=== PATIENT | female | born 1975 | race African-American/Black ===

== ENCOUNTER 2021-12-11 09:40 | Emergency (ER) | payer OTHER ==
[2021-12-11 10:41] LABS: Urine Blood Trace-lysed (Negative); Urine Glucose Negative (Negative); Urine Protein Negative (Negative); Urine Specific Gravity 1.015 (1.005-1.030)
[2021-12-11] MEDS ORDERED: ACETAMINOPHEN 500 MG TAB ONE (11:03)
[2021-12-11] MEDS ORDERED: ONDANSETRON 4 MG (ODT) TAB ONE (11:03)
[2021-12-11] MEDS ORDERED: LIDOCAINE 4% PATCH ONE (11:04)
[2021-12-11 11:40] LABS: Urine Specific Gravity/Preg 1.015 (1.005-1.030)
--- NOTE | 2021-12-11 12:10 | RAD REPORT ---
EXAM DESCRIPTION: CT - Abdomen Pelvis Wo Contrast - 12/11/2021 11:53 am CLINICAL HISTORY: Abdominal pain. Abdominal pain, acute, nonlocalized COMPARISON: CT-STONE PROTOCOL dated 09/27/2012 TECHNIQUE: CT imaging of the abdomen and pelvis was performed without contrast. Solid organ, bowel a nd vascular assessment is limited due to lack of IV and oral contrast. All CT scans are performed using dose optimization technique as appropriate and may include automated exposure control or mA/KV adjustment according to patient size. FINDINGS: The lower lung stack are clear. The liver, spleen, pancreas, adrenal glands and kidneys are within normal limits for a limited non-co ntrast examination.Moderate fat containing umbilical hernia. No bowel obstruction, free air, free fluid or abscess. The appendix is normal. The osseous structures are within normal limits.Uterus is enlarged. IMPRESSION: No acute intra-abdominal or pelvic findings. Moderate fat containing umbilical hernia. Uterus is enlarged. A limited non-contrast examination was performed as detailed.
[2021-12-11 12:44] LABS: Absolute Lymphocytes (CBC) 1.6 K/uL (0.7-4.9); Hematocrit 34.9 % (36.0-45.0); MPV 7.5 fL (7.6-11.3); RBC Red Blood Cell Count 4.53 M/uL (3.86-4.86)
[2021-12-11 13:08] LABS: Albumin 3.4 g/dL (3.4-5.0); Bilirubin Total 0.3 mg/dL (0.2-1.0); Potassium 3.4 mmol/L (3.5-5.1); Protein, Total 7.2 g/dL (6.4-8.2)
--- NOTE | 2021-12-11 13:33 | EDPHYS ---
Physician Documentation [facility] Name: Paulette Farrell Age: 46 yrs Sex: Female : 1975 Arrival Date: 12/11/2021 Time: 09:42 Bed 12 Private MD: ED Physician Jeffrey Gomez HPI: 12/11 10:09 This 46 yrs old Black Female presents to ER via Ambulatory with complaints of Back cp Pain, Nausea. 10:10 The patient presents with pain that is acute, with no known mechanism of injury. The cp symptoms are located in the low back. 10:10 Onset: The symptoms/episode began/occurred last night. cp 10:10 Associated signs and symptoms: Pertinent positives: abdominal pain, Pertinent cp negatives: constipation, dysuria, fever, incontinence, numbness, weakness, vaginal bleeding. The problem was sustained history of uterine fibroid. 10:10 Severity of symptoms: in the emergency department the symptoms are unchanged, despite cp home interventions. Historical: - Allergies: 09:59 Iodine; iw - PMHx: 09:59 Anemia; iw - PSHx: 09:59 breast reduction; tubal ligation; iw ROS: 10:15 Constitutional: Negative for body aches, chills, fever, poor PO intake. cp 10:15 Respiratory: Negative for cough, shortness of breath, wheezing. cp 10:15 Abdomen/GI: Positive for abdominal pain, nausea, Negative for vomiting, diarrhea, constipation, black/tarry stool, rectal bleeding. 10:15 : Positive for pain with urination, Negative for hematuria, flank pain, vaginal bleeding, vaginal discharge. 10:15 Skin: Negative for rash. 10:15 Neuro: Negative for altered mental status, headache, numbness, tingling, weakness. 10:15 Eyes: Negative for injury, pain, redness, and discharge. cp 10:15 ENT: Negative for drainage from ear(s), ear pain, sore throat, difficulty swallowing, cp difficulty handling secretions. 10:15 Cardiovascular: Negative for chest pain, edema, palpitations. 10:15 Back: Positive for pain at rest, pain with movement. 10:15 All other systems are negative. Exam: 10:25 Constitutional: The patient appears in no acute distress, alert, awake, cp non-diaphoretic, non-toxic, well developed, well nourished, overweight 10:25 Head/Face: Normocephalic, atraumatic. cp 10:25 Eyes: Periorbital structures: appear normal, Conjunctiva: normal, no exudate, no injection, Sclera: no appreciated abnormality, Lids and lashes: appear normal, bilaterally. 10:25 ENT: External ear(s): are unremarkable, Nose: is normal, Mouth: Lips: moist, Oral mucosa: moist, Posterior pharynx: Airway: no evidence of obstruction, patent. 10:25 Chest/axilla: Inspection: normal. 10:25 Cardiovascular: Rate: normal, Rhythm: regular, Edema: is not appreciated, JVD: is not appreciated. 10:25 Respiratory: the patient does not display signs of respiratory distress, Respirations: normal, no use of accessory muscles, no retractions, labored breathing, is not present, Breath sounds: are clear throughout, no decreased breath sounds, no stridor, no wheezing. 10:25 Abdomen/GI: Inspection: abdomen appears normal, Bowel sounds: active, all quadrants, Palpation: soft, in all quadrants, mild abdominal tenderness, in the right lower quadrant and left lower quadrant, rebound tenderness, is not appreciated, voluntary guarding, is not appreciated, involuntary guarding, is not appreciated. 10:25 Back: pain, that is mild, of the low back area, ROM is painful, with all movement, CVA tenderness, is absent. 10:25 Neuro: Orientation: to person, place \T\ time. Mentation: is normal, Motor: moves all fours, strength is normal, Sensation: is normal, Gait: is steady, at a normal pace, without difficulty. Vital Signs: 09:57 BP 148 / 75; Pulse 86; Resp 16; Temp 98.1; Pulse Ox 100% on R/A; iw MDM: 10:53 Patient medically screened. cp 13:30 Data reviewed: vital signs, nurses notes, lab test result(s), radiologic studies, CT cp scan. 12/11 10:42 Order name: Urine Dipstick-Ancillary; Complete Time: 10:53 EDMS 12/11 10:53 Interpretation: Normal except: UBLD Trace-lysed. cp 12/11 10:42 Order name: Urine --Ancillary (enter results); Complete Time: 12:41 bd 06/06 11:39 Order name: CBC with Diff; Complete Time: 13:18 cp 12/11 13:18 Interpretation: Normal except: HGB 11.3; HCT 34.9; MCV 77.0; MCH 24.9; RDW 18.1; MPV cp 7.5; SMITA% 74.8. 12/11 11:39 Order name: CMP; Complete Time: 13:18 cp 12/11 13:18 Interpretation: Normal except: K 3.4. cp 12/11 11:39 Order name: Lipase; Complete Time: 13:18 cp 12/11 10:09 Order name: Urine Dipstick-Ancillary (obtain specimen); Complete Time: 10:44 cp 12/11 10:09 Order name: Urine Test (obtain specimen); Complete Time: 10:44 cp 12/11 11:39 Order name: IV Saline Lock; Complete Time: 12:37 cp 12/11 11:39 Order name: Labs collected and sent; Complete Time: 12:37 cp 12/11 11:41 Order name: CT Abd/Pelvis - Without Contrast; Complete Time: 12:41 cp Administered Medications: 11:04 Drug: Tylenol 1000 mg Route: PO; ww 11:30 Follow up: Response: No adverse reaction iw 11:04 Drug: Zofran (Ondansetron) 4 mg Route: PO; ww 11:20 Follow up: Response: No adverse reaction iw 11:04 Drug: Lidoderm Patch 5 % (700 mg/patch) 1 patches Route: Topical; Site: affected area; ww Disposition: 12/12 10:08 Co-signature as Attending Physician, Jeffrey Gomez MD. rn Disposition Summary: 12/11/21 13:32 Discharge Ordered Location: Home cp Problem: new cp Symptoms: have improved cp Condition: Stable cp Diagnosis - Nausea cp - Abdominal pain, unspecified cp - Low back pain cp Followup: cp - With: Private Physician - When: 2 - 3 days - Reason: Recheck today's complaints Discharge Instructions: - Discharge Summary Sheet cp - Abdominal Pain, Adult cp - Uterine Fibroids cp - Nausea, Adult cp Forms: - Medication Reconciliation Form cp - Thank You Letter cp - Antibiotic Education cp - Prescription Opioid Use cp Prescriptions: - Zofran 4 mg Oral Tablet - take 1 tablet by ORAL route every 12 hours As needed; 20 tablet; Refills: 0, cp Product Selection Permitted - Lidoderm 5 % Topical adhesive patch,medicated - apply 1 patch by TOPICAL route once daily; 20 patch; Refills: 0, Product cp Selection Permitted - dicyclomine 20 mg Oral Tablet - take 1 tablet by ORAL route 4 times per day; 20 tablet; Refills: 0, Product cp Selection Permitted - Cyclobenzaprine 10 mg Oral Tablet - take 1 tablet by ORAL route every 8 hours As needed; 20 tablet; Refills: 0, cp Product Selection Permitted Signatures: Dispatcher [employer] Chloé Reich RN RN iw Nieto, Roman, MD MD rn Page, Corey, PA PA cp Wood, Whitney, RN RN ww Corrections: (The following items were deleted from the chart) 12/11 10:00 09:59 Allergies: Iodine; [facility] 10:11 10:10 The patient presents with pain that is chronic, with no known mechanism of cp injury, cp
--- NOTE | 2021-12-11 13:33 | ER ---
Nurse's Notes [facility] Name: Paulette Farrell Age: 46 yrs Sex: Female : 1975 Arrival Date: 12/11/2021 Time: 09:42 Bed 12 Private MD: Diagnosis: Nausea;Abdominal pain, unspecified;Low back pain Presentation: 12/11 09:57 Chief complaint: Patient states: has linnea having abd pain and leg pain and back pain all iw night , + nausea, no fever , has uterine fibroid that she think sis making her sick , also had urinary frequency last night. Coronavirus screen: At this time, the client does not indicate any symptoms associated with coronavirus-19. Ebola Screen: Patient negative for fever greater than or equal to 101.5 degrees Fahrenheit, and additional compatible Ebola Virus Disease symptoms Patient denies exposure to infectious person. Patient denies travel to an Ebola-affected area in the 21 days before illness onset. No symptoms or risks identified at this time. Initial Sepsis Screen: Does the patient meet any 2 criteria? No. Patient's initial sepsis screen is negative. Does the patient have a suspected source of infection? No. Patient's initial sepsis screen is negative. Risk Assessment: Do you want to hurt yourself or someone else? Patient reports no desire to harm self or others. Onset of symptoms was December 11, 2021. 09:57 Method Of Arrival: Ambulatory iw 09:57 Acuity: JL 3 iw Historical: - Allergies: 09:59 Iodine; iw - PMHx: 09:59 Anemia; iw - PSHx: 09:59 breast reduction; tubal ligation; iw Vital Signs: 09:57 BP 148 / 75; Pulse 86; Resp 16; Temp 98.1; Pulse Ox 100% on R/A; iw ED Course: 09:42 Patient arrived in ED. am2 09:59 Triage completed. iw 10:04 Jaron Gillespie PA is PHCP. cp 10:04 Jeffrey Gomez MD is Attending Physician. cp 10:43 Chloé Montes, BO is Primary Nurse. iw 11:54 CT Abd/Pelvis - Without Contrast In Process Unspecified. EDMS 12:36 Inserted saline lock: 20 gauge in left antecubital area, using aseptic technique. Blood mb7 collected. 12:37 CBC with Diff Sent. mb7 12:37 CMP Sent. mb7 12:37 Lipase Sent. mb7 12:38 Patient has correct armband on for positive identification. Bed in low position. Call mb7 light in reach. Side rails up X 1. Door closed. Noise minimized. Warm blanket given. Administered Medications: 11:04 Drug: Tylenol 1000 mg Route: PO; ww 11:30 Follow up: Response: No adverse reaction iw 11:04 Drug: Zofran (Ondansetron) 4 mg Route: PO; ww 11:20 Follow up: Response: No adverse reaction iw 11: Drug: Lidoderm Patch 5 % (700 mg/patch) 1 patches Route: Topical; Site: affected area; ww Outcome: 13:32 Discharge ordered by . ines 14:27 Patient left the ED. iw Signatures: Dispatcher [employer] Chloé Reich, RN RN iw Jaron Gillespie PA PA cp Moreno, Amanda am2 Breneman, Mary mb7 Krala Cesar RN RN ww Corrections: (The following items were deleted from the chart) 10:00 09:57 Pulse 86bpm; Resp 16bpm; Pulse Ox 100% RA; Temp 98.1F; iw iw 10:00 09:59 Allergies: Iodine; iw iw
[2021-12-11 14:46] VITALS: BP 148/75; TEMP 98.1; O2SAT 100
== END 2021-12-11 14:27 | disposition home or self-care (01) ==
LOC: ER 09:40
DX: M54.50 Low back pain, unspecified (principal); R11.0 Nausea; R10.9 Unspecified abdominal pain; Z91.048 Other nonmedicinal substance allergy status
CPT/HCPCS: 85025; 36415; 81025; 81003; 83690; 80053; 74176; 99284; J2001

== ENCOUNTER 2023-03-25 09:49 | Emergency (ER) | payer OTHER ==
--- OUTSIDE RECORDS SUMMARY | 2023-03-25 09:57 | XMS REPORT | Continuity of Care Document ---
:1975 Author Organization [facility] t Address [address] [place] [address] Care Team Providers Name Role Phone PCP, PATIENT DOES NOT HAVE A Primary Care Physician Unavaila ble RADIOLOGY Attending Clinician Unavailable Doctor Unassigned, [place] Attending Clinician Unavailable FLORA GOMEZ Attending Clinician Unavailable FLORA GOMEZ Attending Clinician Unavailable TIBURCIO LUCIA Attending Clinician Unavailable Tiburcio Lucia MD Attending Clinician NOLA GARCIA Attending Clinician Unavailable Nola Garcia DO Attending Clinician Tyrell Coe RN Attending Clinician Unavailable REJI GRANGER Attending Clinician Unavailable TORSTEN SY Attending Clinician Unavailable TIBURCIO LUCIA Admitting Clinician Unavailable Payers Payer Name Policy Type Policy Number Effective Date Expiration Date S ource Problems Condition Condition Condition Status Onset Resolution Last Treating Co mments Source Name Details Category Date Date Treatment Clinician Date Morbid Morbid Disease Active 2019-07 Univers obesity obesity 1- [place] index 00 Me dical of of Branch 40.0-49.9 40.0-49.9 Morbid Morbid Disease Active 2019-07 Univers obesity obesity 1-09 [place] of with body [place] mass index 00 Me dical of of Branch 40.0-49.9 40.0-49.9 Headache Headache Disease Active 2019-07 Unive rs 1-09 ity of 00:00: [place] [facility] Left-sided Left-sided Disease Active 2019-07 U nivers weakness weakness 1-08 ity of 00:00: [place] [facility] Tobacco Tobacco Disease Active Univers use use 8-14 ity of disorder disorder 00:00: Medical Branch Generalize Generalize Disease Active U nivers d anxiety d anxiety 8-14 ity of disorder disorder 00:00: Medical Branch Depression Depression Disease Active U nivers 8-14 ity of 00:00: Medical Branch History of History of Disease Active U nivers kidney kidney 814 ity of stones stones 00:00: Medical Branch Elevated Elevated Disease Active Unive rs blood blood 814 ity of pressure pressure 00:00: [place] reading reading 00 Medical without without Branch diagnosis diagnosis of of hypertensi hypertensi on on Anemia Anemia Disease Active Overview: Univer s 8-13 Formattin ity of 00:00: g of this note Medical might be Branch different from the original. ICD10 Diagnosis Term Medicare Compliance Auditor Utility Obesity Obesity Disease Active Overview: Univ ers 8-13 Formattin ity of 00:00: g of this note Medical might be Branch different from the original. ICD10 Diagnosis Term Medicare Compliance Auditor Utility Backache Backache Disease Active Overview: Un ben 8-12 Formattin ity of 00:00: g of this note Medical might be Branch different from the original. ICD10 Diagnosis Term Medicare Compliance Auditor Utility Allergies, Adverse Reactions, Alerts Allergy Allergy Status Severity Reaction(s) Onset Inactive Treating Comm ents Source Name Type Date Date Clinician Iodine Propensi Active Strong - ty to 4-25 Oral adverse 00:00: reaction 00 to drug Iodine Propensi Active ty to 8-06 adverse 00:00: reaction 00 to drug Iodine Propensi Active Anaphylaxis Uni vers And ty to 8-12 ity of Iodide adverse 00:00: [place] Containi reaction 00 Medica l ng s Branch Products Iodine Propensi Active Anaphylaxis Uni vers ty to 8-12 ity of adverse 00:00: [place] reaction 00 Medical s Branch Iodine Propensi Active Anaphylaxis Uni vers And ty to 12 ity of Iodide adverse 00:00: [place] Containi reaction 00 Medica l ng s Branch Products IODINE DRUG Active Anaphylaxis Unive rs INGREDI 8-12 ity of 00:00: [place] 00 Medical Branch IODINE Drug Active Anaphylaxis Unive rs AND Class 8-12 ity of IODIDE 00:00: [place] CONTAINI 00 Medical Branch PRODUCTS Social History Social Habit Start Date Stop Date Quantity Comments Source History of Cigarette Smoker Universi ty of tobacco use [place] [facility] History SDDE University o f Alcohol Frequency [facility] edical Branch History [facility] University o f Alcohol Std [place] [facility] Drinks Branch History [facility] o f Alcohol Binge [facility] al Branch Exposure to 2022-06-16 2022-06-26 Not sure University of SARS-CoV-2 00:00:00 23:22:00 [facility] (event) [place] Alcohol intake 2022-01-28 2022-01-28 Current drinker of Un iversity of 00:00:00 00:00:00 alcohol (finding) [facility] Cigarettes smoked 2014-02-16 2014-02-16 Univers ity of current (pack per [facility] - Reported Branch Cigarette 2014-02-16 2014-02-16 University of pack-years 00:00:00 00:00:00 [facility] Tobacco use and 2014-02-16 2014-02-16 Smokeless tobacco Un iversity of exposure 00:00:00 00:00:00 non-user [facility] Alcohol Comment 2014-02-16 2014-02-16 occasionally Univers ity of 00:00:00 00:00:00 [facility] Sex [birth year] Universit y of 00:00:00 00:00:00 [facility] Smoking Status Start Date Stop Date Source Smokes tobacco daily 2014-02-16 00:00:00 Univers ity of [facility] Medications Ordered Filled Start Stop Current Ordering Indication Dosage Frequency Signature Comments Components Source Medication Medication Date Date Medication? Clinician (SIG) Name Name ketorolac 2021-07 No 30mg 30 mg, Unive rs (TORADOL) 08-28 12- Slow IV ity of injection 07:45: 07:03 Push, ONCE [place] 30 mg 00 :00 NOW, 1 Medical dose, On Branch 06/27/22 at 0145, SUSI naproxen 2021-07- No [id number] 500mg Take 1 Univers 500 mg 08-28 100 tablet by ity of tablet 00:00: 05:59 mouth in [place] 00 :00 the Medical morning Branch and 1 tablet in the evening. Take with meals. Do all this for 10 days. cefdinir 2021-07- No [id number] 300mg Take 1 Univers 300 mg 08-28 100 capsule by ity of capsule 00:00: 05:59 mouth in [place] 00 :00 the Medical morning Branch and 1 capsule in the evening. Do all this for 7 days. acetaminoph 2021-07- No [id number] 1{tbl} Take 1 U nivers en-codeine 08-28 tablet by ity of 300-30 mg 00:00: 05:59 mouth [place] tablet 00 :00 every 6 Medical (six) Branch hours as needed for Pain (scale 7-10) for up to 7 days. Indication s: acute pain naproxen 2021-07 No [id number] 500mg Take 1 Univers 500 mg 08-28 100 tablet by ity of tablet 00:00: 00:00 mouth in [place] 00 :00 the [facility] Branch and 1 tablet in the evening. Take with meals. Do all this for 10 days. TAKE 1 2021-0 No TABLET BY 9-13 MOUTH FOUR 00:00: TIMES DAILY 00 TAKE 1 2021-0 No 20 TABLET BY 8-12 MOUTH FOUR 00:00: TIMES DAILY 00 TAKE 1 2021-0 No 20 TABLET BY 8-12 MOUTH FOUR 00:00: TIMES DAILY 00 TAKE 1 2021-0 No 20 TABLET BY 8-12 MOUTH FOUR 00:00: TIMES DAILY 00 &lt 2022-0 No 8-10 00:00: 00 &lt 2022-0 No 8-10 00:00: 00 &lt 2022-0 No 8-10 00:00: 00 Vitamin D2 2021-0 No 1(50,00 1,250 mcg 02-02 0 unit) (50,000 00:00: unit) 00 capsule TAKE 1 2021-0 No 200 CAPSULE BY 7-29 MOUTH WITH 00:00: FOOD THE 00 NIGHT BEFORE PROCEDURE TAKE 1 2022-0 No 10 TABLET BY 7-29 MOUTH THE 00:00: NIGHT 00 BEFORE PROCEDURE AND 1 TABLET 1 HOUR PRIOR TO PROCEDURE Vitamin D2 2022-0 No 1(50,00 1,250 mcg 7-29 0 unit) (50,000 00:00: unit) 00 capsule TAKE 1 2022-0 No 200 CAPSULE BY 7-29 MOUTH WITH 00:00: FOOD THE 00 NIGHT BEFORE PROCEDURE TAKE 1 2022-0 No 10 TABLET BY 7-29 MOUTH THE 00:00: NIGHT 00 BEFORE PROCEDURE AND 1 TABLET 1 HOUR PRIOR TO PROCEDURE Vitamin D2 2022-0 No 1(50,00 1,250 mcg 7-29 0 unit) (50,000 00:00: unit) 00 capsule TAKE 1 2022-0 No 200 CAPSULE BY 7-29 MOUTH WITH 00:00: FOOD THE 00 NIGHT BEFORE PROCEDURE TAKE 1 2022-0 No 10 TABLET BY 7-29 MOUTH THE 00:00: NIGHT 00 BEFORE PROCEDURE AND 1 TABLET 1 HOUR PRIOR TO PROCEDURE &lt 2022-0 No 7-28 00:00: 00 &lt 2022-0 No 7-28 00:00: 00 &lt 2022-0 No 7-28 00:00: 00 nifedipine 2022-0 No 1mg ER 30 mg 7-26 tablet,exte 00:00: nded 00 release 24 hr &lt 2022-0 No 7-26 00:00: 00 TAKE 1 2022-0 No 10 TABLET BY 7-26 MOUTH THE 00:00: NIGHT 00 BEFORE PROCEDURE AND 1 TABLET 1 HOUR PRIOR TO PROCEDURE &lt 2022-0 No 7-26 00:00: 00 nifedipine 2022-0 No 1mg ER 30 mg 7-26 tablet,exte 00:00: nded 00 release 24 hr &lt 2022-0 No 7-26 00:00: 00 TAKE 1 2022-0 No 10 TABLET BY 7-26 MOUTH THE 00:00: NIGHT 00 BEFORE PROCEDURE AND 1 TABLET 1 HOUR PRIOR TO PROCEDURE &lt 2022-0 No 7-26 00:00: 00 nifedipine 2022-0 No 1mg ER 30 mg 7-26 tablet,exte 00:00: nded 00 release 24 hr &lt 2022-0 No 7-26 00:00: 00 TAKE 1 2022-0 No 10 TABLET BY 7-26 MOUTH THE 00:00: NIGHT 00 BEFORE PROCEDURE AND 1 TABLET 1 HOUR PRIOR TO PROCEDURE &lt 2021-0 No 01-30 00:00: 00 nifedipine 2021-0 No 1mg ER 30 mg 01-30 tablet,exte 00:00: nded 00 release 24 hr &lt 2021-0 No 01-30 00:00: 00 TAKE 1 2021-0 No 10 TABLET BY 01-30 MOUTH THE 00:00: NIGHT 00 BEFORE PROCEDURE AND 1 TABLET 1 HOUR PRIOR TO PROCEDURE &lt 2021-0 No 01-30 00:00: 00 ondansetron 2021- No 4mg 4 mg, Slow Univers (ZOFRAN 01-28-24 IV Push, ity of (PF)) 22:15: 22:12 ONCE, 1 [place] injection 4 00 :00 dose, On Medi armando mg Sun Branch 01/28/22 at 1715, SUSI NaCl 0.9% 2021- No 1000mL at 999 Uni vers (NS) bolus 01-28- mL/hr, ity of infusion 21:30: 23:00 1,000 mL, [place] 1,000 mL 00 :00 IV Medical Infusion, Branch ONCE, 1 dose, On 01/28/22 at 1630, SUSI ibuprofen 2021- No 200mg Take 200 Un ben (ADVIL) 200 01-28-24 mg by ity of mg tablet 16:58: 00:00 mouth [place] 46 :00 every 6 Medical (six) Branch hours as needed. Takes 3 pills prn pain albuterol Yes [id number] 2{puff} Inhale 2 Univers 90 7-24 Puffs ity of mcg/actuati 00:00: every 4 [place] on inhaler 00 (four) Medical hours as Branch needed for Wheezing or Shortness of Breath. albuterol Yes [id number] 2{puff} Inhale 2 Univers 90 7-24 Puffs ity of mcg/actuati 00:00: every 4 [place] on inhaler 00 (four) Medical hours as Branch needed for Wheezing or Shortness of Breath. albuterol Yes [id number] 2{puff} Inhale 2 Univers 90 7-24 Puffs ity of mcg/actuati 00:00: every 4 [place] on inhaler 00 (four) Medical hours as Branch needed for Wheezing or Shortness of Breath. albuterol 0 Yes [id number] 2{puff} Inhale 2 Univers 90 7-24 Puffs ity of mcg/actuati 00:00: every 4 [place] on inhaler 00 (four) Medical hours as Branch needed for Wheezing or Shortness of Breath. albuterol 2021- No [id number] 2{puff} Inhale 2 Univers 90 7-24 07-24 Puffs ity of mcg/actuati 00:00: 00:00 [place] 4 [place] inhaler 00 :00 (four) Medical hours as Branch needed for Wheezing or Shortness of Breath. Dose 2021-0 No Unknown 4-25 00:00: 00 Dose 2021-0 No Unknown 4-25 00:00: 00 Dose 2-0 No Unknown 4-25 00:00: 00 Dose 2-0 No Unknown 4-25 00:00: 00 Dose 2022-0 No Unknown 4-25 00:00: 00 Dose 2022-0 No Unknown 4-25 00:00: 00 Dose 2-0 No Unknown 4-25 00:00: 00 Dose 2-0 No Unknown 4-25 00:00: 00 Dose 2-0 No Unknown 4-25 00:00: 00 Dose 2-0 No Unknown 4-25 00:00: 00 Dose 2022-0 No Unknown 4-25 00:00: 00 Dose 2022-0 No Unknown 4-25 00:00: 00 Dose 2022-0 No Unknown 4-25 00:00: 00 Dose 2022-0 No Unknown 4-25 00:00: 00 Dose 2022-0 No Unknown 4-25 00:00: 00 Dose 2022-0 No Unknown 4-25 00:00: 00 Dose 2022-0 No Unknown 4-25 00:00: 00 Dose 2022-0 No Unknown 4-25 00:00: 00 Dose 2022-0 No Unknown 4-25 00:00: 00 Dose 2022-0 No Unknown 4-25 00:00: 00 Dose 2022-0 No Unknown 4-25 00:00: 00 Dose 2022-0 No Unknown 4-25 00:00: 00 Dose 2022-0 No Unknown 4-25 00:00: 00 Dose 2022-0 No Unknown 4-25 00:00: 00 Dose 2022-0 No Unknown 4-25 00:00: 00 Dose 2022-0 No Unknown 4-25 00:00: 00 Dose 2022-0 No Unknown 4-25 00:00: 00 Dose 2022-0 No Unknown 4-25 00:00: 00 Dose 2022-0 No Unknown 4-25 00:00: 00 Dose 2022-0 No Unknown 4-25 00:00: 00 Dose 2022-0 No Unknown 4-25 00:00: 00 Dose 2022-0 No Unknown 4-25 00:00: 00 doxycycline 2020-0 No 1mg monohydrate 4-29 100 mg 00:00: capsule 00 doxycycline 2020-0 No 1mg monohydrate 4-29 100 mg 00:00: capsule 00 doxycycline 2020-0 No 1mg monohydrate 4-29 100 mg 00:00: capsule 00 doxycycline 2020-0 No 1mg monohydrate 4-29 100 mg 00:00: capsule 00 ferrous 2020-0 No 2(65 mg sulfate 325 4-09 iron) mg (65 mg 00:00: iron) 00 tablet ferrous 2020-0 No 2(65 mg sulfate 325 4-09 iron) mg (65 mg 00:00: iron) 00 tablet ferrous 2020-0 No 2(65 mg sulfate 325 4-09 iron) mg (65 mg 00:00: iron) 00 tablet ferrous 2020-0 No 2(65 mg sulfate 325 4-09 iron) mg (65 mg 00:00: iron) 00 tablet ondansetron 2020- Yes [id number] 4mg Take 1 Univers 4 mg 3-30 tablet by ity of disintegrat 00:00: mouth [place] ing tablet 00 every 8 Medica l (eight) Branch hours as needed for Nausea and Vomiting (N/V). ondansetron 2020-0 Yes [id number] 4mg Take 1 Univers 4 mg 3-30 tablet by ity of disintegrat 00:00: mouth [place] ing tablet 00 every 8 Medica l (eight) Branch hours as needed for Nausea and Vomiting (N/V). ondansetron 2020-0 Yes [id number] 4mg Take 1 Univers 4 mg 3-30 tablet by ity of disintegrat 00:00: mouth [place] ing tablet 00 every 8 Medica l (eight) Branch hours as needed for Nausea and Vomiting (N/V). ondansetron 2021- No [id number] 4mg Take 1 Univers 4 mg 3-30 07-24 tablet by ity of disintegrat 00:00: 00:00 [place] tablet 00 :00 every 8 Medica l (eight) Branch hours as needed for Nausea and Vomiting (N/V). ibuprofen 2019-07 Yes 200mg Take 200 Uni vers (ADVIL) 200 1-10 mg by ity of mg tablet 18:55: mouth [place] 58 every 6 Medical (six) Branch hours as needed. Takes 3 pills prn pain ibuprofen 2019-07 Yes 200mg Take 200 Uni vers (ADVIL) 200 1-10 mg by ity of mg tablet 18:55: mouth [place] 58 every 6 Medical (six) Branch hours as needed. Takes 3 pills prn pain ibuprofen 2019-07 Yes 200mg Take 200 Uni vers (ADVIL) 200 1-10 mg by ity of mg tablet 18:55: mouth [place] 58 every 6 Medical (six) Branch hours as needed. Takes 3 pills prn pain amitriptyli 2019-07 Yes [id number] 25mg Take 1 Univers ne 25 mg 1-10 tablet by ity of tablet 00:00: mouth at [place] 00 bedtime. Medical Branch amitriptyli 2019-07 Yes [id number] 25mg Take 1 Univers ne 25 mg 1-10 tablet by ity of tablet 00:00: mouth at [place] [address] bedtime. Medical Branch amitriptyli 2019-07 Yes [id number] 25mg Take 1 Univers ne 25 mg 1-10 tablet by ity of tablet 00:00: mouth at [place] [address] bedtime. Medical Branch amitriptyli 2019-07 Yes [id number] 25mg Take 1 Univers ne 25 mg 1-10 tablet by ity of tablet 00:00: mouth at [place] [address] bedtime. Medical Branch amitriptyli 2019-07 Yes [id number] 25mg Take 1 Univers ne 25 mg 1-10 tablet by ity of tablet 00:00: mouth at [place] [address] bedtime. Medical Branch amitriptyli 2019-07 Yes [id number] 25mg Take 1 Univers ne 25 mg 1-10 tablet by ity of tablet 00:00: mouth at [place] [address] bedtime. Medical Branch amitriptyli 2019- Yes [id number] 25mg Take 1 Univers ne 25 mg 1-10 tablet by ity of tablet 00:00: mouth at [place] [address] bedtime. Medical Branch metronidazo 2019- No 1mg le 500 mg 1-10 tablet 00:00: 00 metronidazo 2019-07 No 1mg le 500 mg 1-10 tablet 00:00: 00 metronidazo 2019- No 1mg le 500 mg 1-10 tablet 00:00: 00 metronidazo 2019-07 No 1mg le 500 mg 1-10 tablet 00:00: 00 azithromyci 2019-07 No 1mg n 250 mg 1-05 tablet 00:00: 00 ondansetron 2019-07 No 1mg 4 mg 1-05 disintegrat 00:00: ing tablet 00 ProAir HFA 2019-07 No 12mcg/a 90 1-05 ctuatio mcg/actuati 00:00: n on aerosol 00 inhaler Anusol-HC 2019-07 No 1% 2.5 % 1-05 topical 00:00: cream with 00 perineal applicator azithromyci 2019-07 No 1mg n 250 mg 1-05 tablet 00:00: 00 azithromyci 2019-07 No 1mg n 250 mg 1-05 tablet 00:00: 00 ondansetron 2019-07 No 1mg 4 mg 1-05 disintegrat 00:00: ing tablet 00 ProAir HFA 2019-07 No 12mcg/a 90 1-05 ctuatio mcg/actuati 00:00: n on aerosol 00 inhaler Anusol-HC 2019-07 No 1% 2.5 % 1-05 topical 00:00: cream with 00 perineal applicator azithromyci 2019-07 No 1mg n 250 mg 1-05 tablet 00:00: 00 azithromyci 2019-07 No 1mg n 250 mg 1-05 tablet 00:00: 00 ondansetron 2019-07 No 1mg 4 mg 1-05 disintegrat 00:00: ing tablet 00 ProAir HFA 2019-07 No 12mcg/a 90 1-05 ctuatio mcg/actuati 00:00: n on aerosol 00 inhaler Dose 2019- No Unknown 1-05 00:00: 00 azithromyci 2019-07 No 1mg n 250 mg 1-05 tablet 00:00: 00 azithromyci 2019-07 No 1mg n 250 mg 1-05 tablet 00:00: 00 ondansetron 2019-07 No 1mg 4 mg 1-05 disintegrat 00:00: ing tablet 00 ProAir HFA 2019-07 No 12mcg/a 90 1-05 ctuatio mcg/actuati 00:00: n on aerosol 00 inhaler Anusol-HC 2019-07 No 1% 2.5 % 1-05 topical 00:00: cream with 00 perineal applicator azithromyci 2019-07 No 1mg n 250 mg 1-05 tablet 00:00: 00 albuterol 2019-07 Yes [id number] 2{puff} Inhale 2 Univers 90 1-03 Puffs ity of mcg/actuati 00:00: every 4 [place] on inhaler 00 (four) Medical hours as Branch needed for Wheezing or Shortness of Breath. ondansetron 2019-07 Yes [id number] 4mg Take 1 Univers 4 mg tablet 1-03 tablet by ity of 00:00: mouth [place] 00 every 8 Medical (eight) Branch hours as needed for Nausea and Vomiting (N/V). albuterol 2019-07 Yes [id number] 2{puff} Inhale 2 Univers 90 1-03 Puffs ity of mcg/actuati 00:00: every 4 [place] on inhaler 00 (four) Medical hours as Branch needed for Wheezing or Shortness of Breath. ondansetron 2019-07 Yes [id number] 4mg Take 1 Univers 4 mg tablet 1-03 tablet by ity of 00:00: mouth [place] 00 every 8 Medical (eight) Branch hours as needed for Nausea and Vomiting (N/V). albuterol 2019-07 Yes [id number] 2{puff} Inhale 2 Univers 90 1-03 Puffs ity of mcg/actuati 00:00: every 4 [place] on inhaler 00 (four) Medical hours as Branch needed for Wheezing or Shortness of Breath. ondansetron 2019-07 Yes [id number] 4mg Take 1 Univers 4 mg tablet 1-03 tablet by ity of 00:00: mouth [place] 00 every 8 Medical (eight) Branch hours as needed for Nausea and Vomiting (N/V). albuterol 2019-07- No [id number] 2{puff} Inhale 2 Univers 90 07-10 07-24 Puffs ity of mcg/actuati 00:00: 00:00 every 4 [place] inhaler 00 :00 (four) Medical hours as Branch needed for Wheezing or Shortness of Breath. ondansetron 2019-07- No [id number] 4mg Take 1 Univers 4 mg tablet 07-1024 tablet by it y of 00:00: 00:00 mouth [place] 00 :00 every 8 Medical (eight) Branch hours as needed for Nausea and Vomiting (N/V). Flagyl 500 2019-0 No 1mg mg tablet 07-11 00:00: 00 Flagyl 500 0 No 1mg mg tablet 07-11 00:00: 00 Flagyl 500 2019-0 No 1mg mg tablet 07-11 00:00: 00 Flagyl 500 2019-0 No 1mg mg tablet 07-11 00:00: 00 Iron 2020-0 No 1(65 mg (ferrous 1-03 iron) sulfate) 00:00: 325 mg (65 00 mg iron) tablet Iron 2020-0 No 1(65 mg (ferrous 1-03 iron) sulfate) 00:00: 325 mg (65 00 mg iron) tablet Iron 2020-0 No 1(65 mg (ferrous 1-03 iron) sulfate) 00:00: 325 mg (65 00 mg iron) tablet Iron 2020-0 No 1(65 mg (ferrous 1-03 iron) sulfate) 00:00: 325 mg (65 00 mg iron) tablet hydrochloro Yes [id number] 25mg Take 1 Tab Univers thiazide 8-12 by mouth ity of (ESIDRIX) 00:00: daily. [place] 25 mg 00 Medical tablet Branch hydrochloro 0 Yes [id number] 25mg Take 1 Tab Univers thiazide 8-12 by mouth ity of (ESIDRIX) 00:00: daily. [place] 25 mg 00 Medical tablet Branch hydrochloro 0 Yes [id number] 25mg Take 1 Tab Univers thiazide 8-12 by mouth ity of (ESIDRIX) 00:00: daily. [place] 25 mg 00 Medical tablet Branch hydrochloro 0 Yes [id number] 25mg Take 1 Tab Univers thiazide 8-12 by mouth ity of (ESIDRIX) 00:00: daily. [place] 25 mg 00 Medical tablet Branch hydrochloro 2015-0 Yes [id number] 25mg Take 1 Tab Univers thiazide 8-12 by mouth ity of (ESIDRIX) 00:00: daily. [place] 25 mg 00 Medical tablet Branch hydrochloro 2015-0 Yes [id number] 25mg Take 1 Tab Univers thiazide 8-12 by mouth ity of (ESIDRIX) 00:00: daily. [place] 25 mg 00 Medical tablet Branch hydrochloro 2015-0 Yes [id number] 25mg Take 1 Tab Univers thiazide 8-12 by mouth ity of (ESIDRIX) 00:00: daily. [place] 25 mg 00 Medical tablet Branch ferrous 2013- Yes 325mg Take 1 Tab Uni vers sulfate 8-19 by mouth ity of (IRON, 00:00: daily. [place] FERROUS Medical SULFATE,) Branch 325 mg (65 mg iron) tablet ferrous Yes 325mg Take 1 Tab Uni vers sulfate 8-19 by mouth ity of (IRON, 00:00: daily. [place] FERROUS Medical SULFATE,) Branch 325 mg (65 mg iron) tablet ferrous Yes 325mg Take 1 Tab Uni vers sulfate 8-19 by mouth ity of (IRON, 00:00: daily. [place] FERROUS Medical SULFATE,) Branch 325 mg (65 mg iron) tablet ferrous Yes 325mg Take 1 Tab Uni vers sulfate 8-19 by mouth ity of (IRON, 00:00: daily. [place] FERROUS Medical SULFATE,) Branch 325 mg (65 mg iron) tablet ferrous Yes 325mg Take 1 Tab Uni vers sulfate 8-19 by mouth ity of (IRON, 00:00: daily. [place] FERROUS Medical SULFATE,) Branch 325 mg (65 mg iron) tablet ferrous 0 Yes 325mg Take 1 Tab Uni vers sulfate 8-19 by mouth ity of (IRON, 00:00: daily. [place] FERROUS Medical SULFATE,) Branch 325 mg (65 mg iron) tablet ferrous Yes 325mg Take 1 Tab Uni vers sulfate 8-19 by mouth ity of (IRON, 00:00: daily. [place] FERROUS Medical SULFATE,) Branch 325 mg (65 mg iron) tablet Immunizations Ordered Filled Immunization Date Status Comments [facility] e Immunization Name Name Tdap 2019-07-10 Completed 00:00:00 Tdap 2019-07-10 Completed 00:00:00 Tdap 2019-07-10 Completed 00:00:00 Tdap 2019-07-10 Completed 00:00:00 Td 2012-02-06 Completed University of 00:00:00 [place] [facility] Td 2012-02-06 Completed University of 00:00:00 [place] [facility] Td 2012-02-06 Completed University of 00:00:00 [facility] TD, NOS 2012-02-06 Completed University of 00:00:00 [facility] TD, NOS 2012-02-06 Completed University of 00:00:[address] [facility] Branch Td 2012-02-06 Completed University of 00:00:00 [place] [facility] Td 2012-02-06 Completed University of 00:00:00 [facility] Vital Signs Vital Name Observation Time Observation Value Comments Source Systolic blood 2022-06-27 08:00:00 163 mm[Hg] Univer sity of pressure [facility] Diastolic blood 2022-06-27 08:00:00 84 mm[Hg] Unive rsity of [facility] Heart rate 2022-06-27 08:00:00 67 /min [facility] Respiratory rate 2022-06-27 08:00:00 25 /min [facility] saturation in 2022-06-27 08:00:00 100 /min [facility] Arterial blood by [facility] Pulse oximetry [place] Body temperature 2022-06-27 05:27:00 37.22 Susie [facility] Body height 2022-06-27 05:27:00 152.4 cm [facility] Body weight 2022-06-27 05:27:00 81.647 kg [facility] BMI 2022-06-27 05:27:00 35.15 kg/m2 [facility] Systolic blood 2022-01-28 23:00:00 145 mm[Hg] Univer sity of pressure [facility] Diastolic blood 2022-01-28 23:00:00 91 mm[Hg] Unive rsity of pressure [facility] Heart rate 2022-01-28 23:00:00 80 [facility] 2022-01-28 23:00:00 20 /min [facility] Oxygen saturation in 2022-01-28 23:00:00 98 /min University of Arterial blood by [facility] Pulse oximetry [place] Body temperature 2022-01-28 19:42:00 35.61 Susie [facility] Body height 2022-01-28 19:42:00 152.4 cm [facility] Body weight 2022-01-28 19:42:00 96.163 kg [facility] BMI 2022-01-28 19:42:00 41.40 kg/m2 [facility] BP Systolic 2022-07-06 17:01:00 140 mm[Hg] BP Diastolic 2022-07-06 17:01:00 76 mm[Hg] Weight Measured 2022-07-06 17:01:00 201.60 pounds Height Measured 2022-07-06 17:01:00 61.02 inches Body Temperature 2022-07-06 17:01:00 98.10 degrees Heart Rate 2022-07-06 17:01:00 93.00 /min Respiratory Rate 2022-07-06 17:01:00 17.00 /min BP Systolic 2022-02-15 17:39:00 130 mm[Hg] BP Diastolic 2022-02-15 17:39:00 73 mm[Hg] Weight Measured 2022-02-15 17:39:00 208.40 pounds Height Measured 2022-02-15 17:39:00 61.02 inches Body Temperature 2022-02-15 17:39:00 98.40 degrees Heart Rate 2022-02-15 17:39:00 95.00 /min Respiratory Rate 2022-02-15 17:39:00 24.00 /min BP Systolic 2022-02-02 09:49:00 135 mm[Hg] BP Diastolic 2022-02-02 09:49:00 89 mm[Hg] Weight Measured 2022-02-02 09:49:00 211.00 pounds Height Measured 2022-02-02 09:49:00 61.02 inches Body Temperature 2022-02-02 09:49:00 97.70 degrees Heart Rate 2022-02-02 09:49:00 89.00 /min Respiratory Rate 2022-02-02 09:49:00 18.00 /min BP Systolic 2022-01-30 17:56:00 142 mm[Hg] BP Diastolic 2022-01-30 17:56:00 95 mm[Hg] Weight Measured 2022-01-30 17:56:00 212.00 pounds Height Measured 2022-01-30 17:56:00 61.02 inches Body Temperature 2022-01-30 17:56:00 98.40 degrees Heart Rate 2022-01-30 17:56:00 90.00 /min Respiratory Rate 2022-01-30 17:56:00 18.00 /min BP Systolic 2020-11-02 13:41:00 137 mm[Hg] BP Diastolic 2020-11-02 13:41:00 85 mm[Hg] Weight Measured 2020-11-02 13:41:00 217.40 pounds Height Measured 2020-11-02 13:41:00 61.02 inches Body Temperature 2020-11-02 13:41:00 98.00 degrees Heart Rate 2020-11-02 13:41:00 92.00 /min Respiratory Rate 2020-11-02 13:41:00 17.00 /min Heart Rate 2020-10-24 10:04:00 88.00 /min Respiratory Rate 2020-10-24 10:04:00 18.00 /min BP Systolic 2020-10-24 10:04:00 114 mm[Hg] BP Diastolic 2020-10-24 10:04:00 57 mm[Hg] Weight Measured 2020-10-24 10:04:00 221.60 pounds Height Measured 2020-10-24 10:04:00 61.02 inches Body Temperature 2020-10-24 10:04:00 98.10 degrees Body Temperature 2020-10-21 13:28:00 98.50 degrees Heart Rate 2020-10-21 13:28:00 89.00 /min Respiratory Rate 2020-10-21 13:28:00 BP Systolic 2020-10-21 13:28:00 138 mm[Hg] BP Diastolic 2020-10-21 13:28:00 85 mm[Hg] Weight Measured 2020-10-21 13:28:00 218.80 pounds Height Measured 2020-10-21 13:28:00 61.02 inches BP Systolic 2020-10-06 17:16:00 111 mm[Hg] BP Diastolic 2020-10-06 17:16:00 74 mm[Hg] Weight Measured 2020-10-06 17:16:00 219.00 pounds Height Measured 2020-10-06 17:16:00 61.02 inches Body Temperature 2020-10-06 17:16:00 97.60 degrees Heart Rate 2020-10-06 17:16:00 88.00 /min Respiratory Rate 2020-10-06 17:16:00 17.00 /min BP Systolic 2020-05-12 09:25:00 129 mm[Hg] BP Diastolic 2020-05-12 09:25:00 89 mm[Hg] Weight Measured 2020-05-12 09:25:00 222.40 pounds Height Measured 2020-05-12 09:25:00 61.02 inches Body Temperature 2020-05-12 09:25:00 98.50 degrees Heart Rate 2020-05-12 09:25:00 81.00 /min Respiratory Rate 2020-05-12 09:25:00 16.00 /min BP Systolic 2019-07-10 15:17:00 129 mm[Hg] BP Diastolic 2019-07-10 15:17:00 78 mm[Hg] Weight Measured 2019-07-10 15:17:00 214.40 pounds Height Measured 2019-07-10 15:17:00 61.02 inches Body Temperature 2019-07-10 15:17:00 98.80 degrees Heart Rate 2019-07-10 15:17:00 86.00 /min Respiratory Rate 2019-07-10 15:17:00 BP Systolic 2018-02-10 16:09:00 121 mm[Hg] BP Diastolic 2018-02-10 16:09:00 77 mm[Hg] Weight Measured 2018-02-10 16:09:00 170.40 pounds Height Measured 2018-02-10 16:09:00 61.02 inches Body Temperature 2018-02-10 16:09:00 98.60 degrees Heart Rate 2018-02-10 16:09:00 99.00 /min Respiratory Rate 2018-02-10 16:09:00 18.00 /min Procedures Procedure Date / Time Performing Clinician Source Performed REFERRAL- 2022-10-31 05:01:00 [facility]RESPONSE Name Medical Branch REFERRAL- 2022-07-09 06:01:00 Doctor Unassigned, No [facility] REQUEST/RESPONSE Name Medical Branch CT ABDOMEN PELVIS WO 2022-06-27 07:36:06 Tiburcio Lucia [facility] CONTRAST [facility] Branch COMP. METABOLIC PANEL 2022-06-27 05:55:00 Tiburico Lucia [facility] ([id number]) Medical Branch CBC WITH DIFF 2022-06-27 05:55:00 Tiburcio Lucia [facility] PROTHROMBIN TIME / INR 2022-06-27 05:55:00 Tiburcio Lucia [facility] ACTIVATED PARTIAL 2022-06-27 05:55:00 Tiburcio Lucia [facility] THRMPLAS DALE [facility] URINALYSIS 2022-06-27 05:55:00 Tiburcio Lucia [facility] POCT TEST 2022-06-27 05:54:00 Tiburcio Lucia [facility] CONSENT/REFUSAL FOR 2022-06-27 05:12:00 Doctor Unassigned, No [facility] [place] [facility] Name Medical Branch CREATINE KINASE 2022-01-28 20:40:00 Nola Garcia [facility] MAGNESIUM 2022-01-28 20:40:00 Nola Garcia [facility] COMP. METABOLIC PANEL 2022-01-28 20:40:00 Nola Garcia [facility] ([id number]) Medical [place] CBC WITH DIFF 2022-01-28 20:40:00 Nola Garcia [facility] URINALYSIS 2022-01-28 20:33:00 Nola Garcia [facility] NOTICE OF PRIVACY 2022-01-28 19:32:56 Doctor Unassigned, No [facility] PRACTICES Name Medical Branch CONSENT/REFUSAL FOR 2022-01-28 19:32:38 Doctor Unassigned, No [facility] [place] [facility] Medical Branch CONSENT/REFUSAL FOR 2021-03-19 18:59:45 Doctor Unassigned, No [facility] [place] [facility] Name Medical Branch [id number] [address] Pelvic 2020-10-21 00:00:00 Nonobstetric Complete Plan of Care Planned Activity Planned Date Details Comments Source Goal Plan of Care Note [code = 66746-3] Goal Plan of Care Note [code = 99364-1] Goal Plan of Care Note [code = 55931-8] Goal Plan of Care Note [code = 56418-3] Goal Plan of Care Note [code = 82342-0] Goal Plan of Care Note [code = 88823-1] Goal Plan of Care Note [code = 45332-9] Goal Plan of Care Note [code = 02553-2] Goal Plan of Care Note [code = 31526-8] Goal Plan of Care Note [code = 25786-0] Goal Plan of Care Note [code = 61748-6] Goal Plan of Care Note [code = 10521-7] Goal Plan of Care Note [code = 77170-2] Goal Plan of Care Note [code = 62155-8] Goal Plan of Care Note [code = 68745-7] Goal Plan of Care Note [code = 83272-4] Goal Plan of Care Note [code = 18320-9] Goal Plan of Care Note [code = 36049-3] Goal Plan of Care Note [code = 03291-6] Goal Plan of Care Note [code = 67227-5] Goal Plan of Care Note [code = 44971-6] Goal Plan of Care Note [code = 56322-3] Goal Plan of Care Note [code = 06280-8] Goal Plan of Care Note [code = 51510-5] Goal Plan of Care Note [code = 85680-9] Goal Plan of Care Note [code = 62261-7] Goal Plan of Care Note [code = 31617-7] Goal Plan of Care Note [code = 36506-9] Goal Plan of Care Note [code = 42018-8] Goal Plan of Care Note [code = 23545-1] Goal Plan of Care Note [code = 39863-5] Goal Plan of Care Note [code = 04640-3] Goal Plan of Care Note [code = 22367-5] Goal Plan of Care Note [code = 28436-9] Goal Plan of Care Note [code = 98678-0] Goal Plan of Care Note [code = 62435-5] Goal Plan of Care Note [code = 51071-4] Goal Plan of Care Note [code = 74842-0] Goal Plan of Care Note [code = 12808-4] Goal Plan of Care Note [code = 07807-6] Goal Plan of Care Note [code = 51528-6] Goal Plan of Care Note [code = 12729-6] Goal Plan of Care Note [code = 38669-8] Goal Plan of Care Note [code = 94791-8] Goal Plan of Care Note [code = 82085-9] Goal Plan of Care Note [code = 20729-8] Goal Plan of Care Note [code = 14435-6] Goal Plan of Care Note [code = 10684-0] Goal Plan of Care Note [code = 61493-8] Goal Plan of Care Note [code = 36816-4] Goal Plan of Care Note [code = 47136-8] Goal Plan of Care Note [code = 65465-1] Goal Plan of Care Note [code = 80296-3] Goal Plan of Care Note [code = 60302-8] Goal Plan of Care Note [code = 61864-9] Goal Plan of Care Note [code = 03584-4] Goal Plan of Care Note [code = 64758-8] Goal Plan of Care Note [code = 49864-8] Goal Plan of Care Note [code = 78276-3] Goal Plan of Care Note [code = 43459-9] Goal Plan of Care Note [code = 51310-9] Goal Plan of Care Note [code = 12305-7] Goal Plan of Care Note [code = 20160-9] Goal Plan of Care Note [code = 78708-6] Goal Plan of Care Note [code = 58105-9] Goal Plan of Care Note [code = 05751-5] Goal Plan of Care Note [code = 32924-5] Goal Plan of Care Note [code = 14071-4] Goal Plan of Care Note [code = 99651-7] Goal Plan of Care Note [code = 99237-3] Goal Plan of Care Note [code = 24931-5] Goal Plan of Care Note [code = 66330-5] Goal Plan of Care Note [code = 88918-8] Goal Plan of Care Note [code = 13651-8] Goal Plan of Care Note [code = 14323-0] Goal Plan of Care Note [code = 43334-7] Goal Plan of Care Note [code = 95510-6] Goal Plan of Care Note [code = 49926-6] Goal Plan of Care Note [code = 43142-3] Goal Plan of Care Note [code = 10460-3] Goal Plan of Care Note [code = 19721-1] Goal Plan of Care Note [code = 53424-3] Goal Plan of Care Note [code = 57247-7] Goal Plan of Care Note [code = 17512-9] Goal Plan of Care Note [code = 53361-7] Goal Plan of Care Note [code = 08708-1] Goal Plan of Care Note [code = 25471-9] Goal Plan of Care Note [code = 51736-6] Goal Plan of Care Note [code = 67821-0] Goal Plan of Care Note [code = 67737-1] Goal Plan of Care Note [code = 88776-4] Goal Plan of Care Note [code = 60356-8] Goal Plan of Care Note [code = 13619-0] Goal Plan of Care Note [code = 40697-6] Goal Plan of Care Note [code = 62093-6] Goal Plan of Care Note [code = 24693-9] Goal Plan of Care Note [code = 64085-5] Goal Plan of Care Note [code = 42623-1] Goal Plan of Care Note [code = 62354-2] Goal Plan of Care Note [code = 80813-5] Goal Plan of Care Note [code = 18377-8] Goal Plan of Care Note [code = 87500-8] Goal Plan of Care Note [code = 91769-9] Goal Plan of Care Note [code = 50359-1] Goal Plan of Care Note [code = 15736-9] Goal Plan of Care Note [code = 11321-7] Goal Plan of Care Note [code = 29808-6] Goal Plan of Care Note [code = 10301-1] Goal Plan of Care Note [code = 91155-9] Goal Plan of Care Note [code = 27685-1] Goal Plan of Care Note [code = 03481-2] Goal Plan of Care Note [code = 78002-9] Goal Plan of Care Note [code = 48216-1] Goal Plan of Care Note [code = 69815-7] Goal Plan of Care Note [code = 66804-7] Goal Plan of Care Note [code = 58333-3] Goal Plan of Care Note [code = 22518-5] Encounters Start End Encounter Admission Attending Care Care Encounter Source Date/Time Date/Time Type Type Clinicians Facility Department ID 2021-05-07 Emergency [facility] [id number] Univers 09:21:44 ity of [facility] 2021-05-06 Emergency [facility] [id number] Univers 03:55:05 ity of [facility] 2021-05-06 Emergency [facility] [id number] Univers 03:47:34 ity [facility] 2021-05-06 Emergency [facility] [id number] [facility] 2022-12-28 Outpatient SFA SFA [id number] 023 Ángel 10:39:55 10:39:55 0623 [facility] 2022-12-26 2022-12-26 Outpatient SFA SFA [id number] 023 Ángel 17:30:08 17:30:08 0621 [facility] 2022-11-05 2022-11-05 Outpatient SFA SFA 48593-7 023 Ángel 11:06:32 11:06:32 0501 [facility] 2022-10-31 2022-10-31 Orders Doctor VIET 1.2.840.114 [id number] Univers 00:00:00 00:00:00 Only Unassigned, [place] 350.1.13.10 ity of [place] [facility] 4.2.7.2.686 Buzz as [id number] [address] 2022-10-30 2022-10-30 Outpatient SFA SFA 53600-9 023 Ángel 16:37:27 16:37:27 0425 [facility] 2022-07-18 2022-07-18 Outpatient SFA SFA [id number] 023 Ángel 09:39:41 09:39:41 0111 [facility] 2022-07-13 2022-07-13 Outpatient R FLORA GOMEZ [facility] U [facility] [id number] Univers 16:30:00 16:30:00 [facility]22-[facility]-092022-07-09 Orders Doctor VIET 1.2.840.114 [id number] Univers 00:00:00 00:00:00 Only Unassigned, [place] 350.1.13.10 ity [facility] 4.2.7.2.686 [facility] [id number] [facility] 009 Branch 2022-07-06 2022-07-06 Outpatient SFA SFA 68480-5 022 Ángel 16:49:52 16:49:52 1230 F Luis 2022-07-06 2022-07-06 Outpatient uot42wz1- [id number] x50dn6-6 00:00:00 00:00:00 Visit 6g27-10l1 r39-27t5-2 -90fd-582 0fd-582e64 i79v76iu5 a73ae4 2022-06-26 2022-06-27 Emergency X VASUT, [facility] ERT [id number] Univers 23:30:00 02:40:00 TIBURCIO echavarria [facility] 2022-06-26 2022-06-27 Emergency Vasut, [facility] 1.2.249.323 [id number] Univers 23:30:00 02:40:00 Tiburcio HERNÁNDEZ 350.1.13.10 [facility] 4.2.7.2.686 [facility] [id number] [facility] 084 Branch 2022-02-15 2022-02-15 Outpatient [id number] [id number] 00:00:00 00:00:00 Visit 128b-4c97 28b-4c97-b -bdba-035 shake splitter-827767 9233l0403 5c0368 2022-02-02 2022-02-02 Outpatient 5j3f513r- [id number] 0e 2k771b-8 00:00:00 00:00:00 Visit 9w17-3063 e91-3611-0 -8302-bc8 302-bc86e2 7c36q5z22 5a8c98 2022-01-30 2022-01-30 Outpatient r45k27e4- [id number] a1 1h92r0-9 00:00:00 00:00:00 Visit 5122-4c28 122-4c28-a -accf-cd0 ccf-yt7685 28515v4n2 71f3c9 2022-01-28 2022-01-28 Emergency X [facility] ERT [id number] Univers 15:12:00 18:29:00 NOLA yogeshconnie [facility] 2022-01-28 2022-01-28 Emergency [facility] 1.2.840.114 [id number] Univers 15:12:00 18:29:00 Nola HERNÁNDEZ 350.1.13.10 ity of [place] 4.2.7.2.686 [facility] [id number] [facility] 084 Branch 2022-01-28 2022-01-28 Orders Doctor VIET 1.2.840.114 [id number] Univers 00:00:00 00:00:00 Only Unassigned, [place] 350.1.13.10 ity of [place] [facility] 4.2.7.2.686 Buzz as [id number] [facility] 009 Branch 2021-03-20 2021-03-20 Letter VIET Coe 1.2.840.114 [id number] Univers 00:00:00 00:00:00 (Out) Aneatrice [place] 350.1.13.10 ity of [facility] 4.2.7.2.686 Buzz as [id number] [facility] 019 Branch 2021-03-19 2021-03-19 Emergency [facility] 1.2.840.114 [id number] Univers 15:03:00 15:41:00 Nola Hernández 350.1.13.10 ity of [place] 4.2.7.2.686 [facility] [id number] [facility] 084 Branch 2021-03-19 2021-03-19 Emergency X [facility] ERT [id number] Univers 13:59:00 13:59:00 ity of [facility] 2020-10-14 2020-10-14 Outpatient R ELKIN [facility] [id number] Univers 00:00:00 00:00:00 REJI itconnie [facility] 2020-05-09 2020-05-09 [facility] [id number] Univers 18:20:00 18:20:00 TORSTEN ity [facility] Results Test Description Test Time Test Comments Results Result Comments Source HEMOGLOBIN A1c 2022-12-29 03:38:55 Test Item Value Reference Range Interpretation Comme nts HEMOGLOBIN A1c (test code = 5.2 % 4.2-5.6 UNLESS OTHERWISE INDICATED, ALL 44176) TESTING PERFORM ED AT CLINICAL PATHOLOGY [facility] [address] [place] [address] PRODUCTION ESTIMATOR: CITLALI LOPEZ M.D. CLIA NUMBER [id number] CAP ACCREDITATION N O. [id number] PAP TEST, THINPREP, [id number] 17:03:14 Test Item Value Reference Range Interpretation Comments SOURCE: (test Cervical code = 8001) SLIDES: (test 1 code = 8011) LMP: (test code NOT GIVEN = 8021) SPECIMEN (NOTE) Satisfactory f or ADEQUACY: (test evaluation. code = 68072) Endocervical cells/transform ation zone component not identified. INTERPRETATION: NILM/NO EPITH. (test code = ABNORMALITY;SEE 01374) BELOW -------- - NEGATIVE FOR INTRAEPITHELIAL LESION OR MALIGNANCY ( NILM) -------- -------- -------- ---- OTHER COMMENTS: (NOTE) Shift in dunia ra (test code = suggestive of b acterial 8081) vaginosis. DRAMATIC DIRECTOR BARBARA : (test code = AMY CHO(ASCP 8101) )IAC LOCATION: (test (NOTE) Specimens pr ocessed and code = 65854) [facility] [address], [place] [address], Phone: , CLIA: [id number] CPT: (test code (NOTE) 00922 UNLESS OTHERWISE = 8140) INDICATED, COMP UTER AIDED AND CYTOTECHNOLOGIS T SCREENING PERFO RMED. The Pap test is a screening test with an inherent, but l ow probability of error. Your patient sh ould be reminded to con sult you immediately if she experiences any suspicious sign s or symptoms, regar dless of her Pap test re sult. An alternate repor t format containing imag es or consolidated pr ior Pap history is avai lable as applicable. HPV HIGH RISK WITH GENOTYPE, [id number] 17:00:08 Test Item Value Reference Range Interpretation Comments HPV HIGH RISK INTERP NEGATIVE NEGATIVE (test code = 42822) HPV 16 (test code = NEGATIVE 75735) HPV 18 (test code = NEGATIVE 86109) HPV, HR, OTHER NEGATIVE Testing meth odology is GENOTYPES (test code real-ti me PCR utilizing = 08740) hydrolysis prob es with the [employer] 4800 system. The felipa t individually de tects genotypes 16 an d 18, as well as the oth er 12 high risk types (31,33,35,39,45 ,51,52,56 ,58,59,66,68). The expected result is negative. A neg ative result does not rule out the presence of HPV not included in the genotype set, a low leve l of infection or sp ecimen sampling error. [facility] has important p athology staff changes e ffective 09/05/2022. New pathology staff will provide uninter rupted, excellent patie nt care and clinical consultation. S ee URL: [email or web address]. UNLESS OTHERWISE INDICATED, ALL TESTING PERFORMED AT INICAL PATHOLOGY [facility] [address] [place] [address] 4 LABORATORY DIRE CTOR: ERIKA OVERTON M.D. IA NUMBER [id number] [place] [id number] VAGINAL PATHOGENS DNA [id number] 15:49:48 Test Item Value Reference Range Interpretation Comments ROSEMARY SPECIES NEGATIVE NEGATIVE (test code = ) G. VAGINALIS POSITIVE NEGATIVE A (test code = ) T. VAGINALIS NEGATIVE NEGATIVE Note: The BD A ffirm VPIII (test code = Microbial Ident ification ) Testis a DNA pr obe test intended for us e in the detectionand id entification of Rosemary spec ies, Gardnerellavagi nalis and Trichomonas vag inalis nucleic acid. * [facility] has important patho logy staff changes effecti ve 09/05/2022. New pathology staff will provide uninterrupted, excellent patient care an d clinical consultation. S ee URL: [email or web address]. UNLESS OTHE RWISE INDICATED, ALL TESTING PERFORMED AT [facility] [address] [place] [address] LABORATOR Y DIRECTOR: ERIKA OVERTON M.D. CLIA NUMBER [id number] CAP ACCREDITATION N O. [id number] VAGINAL PATHOGENS DNA [id number] 11:27:14 Test Item Value Reference Range Interpretation Comments ROSEMARY SPECIES NEGATIVE NEGATIVE (test code = ) G. VAGINALIS POSITIVE NEGATIVE A (test code = ) T. VAGINALIS NEGATIVE NEGATIVE Note: The BD A ffirm VPIII (test code = Microbial Ident ification ) Testis a DNA pr obe test intended for us e in the detectionand id entification of Rosemary spec ies, Gardnerellavagi nalis and Trichomonas vag inalis nucleic acid. U NLESS OTHERWISE INDIC ATED, ALL TESTING PERFORM ED ATCLINICAL PATHOLOGY [facility]com[address] [address] LABORATO RY DIRECTOR: MANAV TEMPLE M.D. CLIA NUMBER [id number] CAP ACCREDITATION N O. [id number] CBC WITH [id number] 06:49:56 Test Item Value Reference Range Interpretation Comments WBC (test code = See_Comment [Automated 8525-2) message] The sy stem which generated this result transmitted reference range : 4.30 - 11.10 10*3/?L. The reference range was not used to interpret this result as normal/abnormal . RBC (test code = See_Comment [Automated 480-0) message] The sy stem which generated this result transmitted reference range : 3.93 - 5.25 10*6/?L. The reference range was not used to interpret this result as normal/abnormal . HGB (test code = 9.5 g/dL 11.6-15.0 L 718-7) HCT (test code = 31.3 % 35.7-45.2 L 4544-3) MCV (test code = 74.9 fL 80.6-95.5 L 787-2) MCH (test code = 22.7 pg 25.9-32.8 L 785-6) MCHC (test code = 30.4 g/dL 31.6-35.1 L 786-4) RDW-SD (test code = 59.7 fL 39.0-49.9 H 49287-7) RDW-CV (test code = 22.2 % 12.0-15.5 H 788-0) PLT (test code = See_Comment [Automated 777-3) message] The sy stem which generated this result transmitted reference range : 166 - 358 10*3/ ?L. The reference r anna was not used to interpret this result as normal/abnormal . MPV (test code = 9.9 fL 9.5-12.9 38070-4) IPF % (test code = 4.7 % 1.3-7.7 Platelet count 9486457762) measured by fluorescence method. NRBC/100 WBC (test See_Comment [Automat ed code = 5291629777) message] The system which generated this result transmitted reference range : 0.0 - 10.0 /100 WBCs. The refer ence range was not u sed to interpret th is result as normal/abnormal . NRBC x10^3 (test code See_Comment [Auto mated = 5767898546) message] The s ystem which generated this result transmitted reference range : 10*3/?L. The reference range was not used to interpret this result as normal/abnormal . GRAN MAT (NEUT) % 63.7 % (test code = 770-8) IMM GRAN % (test code 0.50 % = 5843589678) LYMPH % (test code = 23.2 % 736-9) MONO % (test code = 8.8 % 5905-5) EOS % (test code = 3.1 % 713-8) BASO % (test code = 0.7 % 706-2) GRAN MAT x10^3(ANC) 5.57 10*3/uL 1.88-7.09 (test code = 8458708719) IMM GRAN x10^3 (test 0.04 10*3/uL 0.00-0.06 code = 7836698921) LYMPH x10^3 (test code 2.03 10*3/uL 1.32-3.29 = 731-0) MONO x10^3 (test code 0.77 10*3/uL 0.33-0.92 = 742-7) EOS x10^3 (test code = 0.27 10*3/uL 0.03-0.39 711-2) BASO x10^3 (test code 0.06 10*3/uL 0.01-0.07 = 704-7) PLT ESTIMATE (test Normal Normal code = 9317-9) Lab Interpretation Abnormal (test code = 50876-4) [facility] (09302)2022-06-27 06:19:59 Test Item Value Reference Range Interpretation Comments NA (test code = 135 mmol/L 135-145 8455703071) K (test code = 4.6 mmol/L 3.5-5.0 6743651338) CL (test code = 109 mmol/L 98-108 H 8755852592) CO2 TOTAL (test code = 22 mmol/L 23-31 L 1281936141) AGAP (test code = 2-16 5177294727) BUN (test code = 14 mg/dL 7-23 4572276974) GLUCOSE (test code = 101 mg/dL 70-110 7296641841) CREATININE (test code = 0.62 mg/dL 0.50-1.04 0211765288) TOTAL BILI (test code = 0.4 mg/dL 0.1-1.5 9791292488) CALCIUM (test code = 8.5 mg/dL 8.6-10.6 L 7009863423) T PROTEIN (test code = 6.4 g/dL 6.3-8.2 7307746742) ALBUMIN (test code = 3.9 g/dL 3.5-5.0 4297988939) ALK PHOS (test code = 60 U/L 34-122 9616467118) ALTv (test code = 21 U/L 5-35 1742-6) AST(SGOT) (test code = 30 U/L 13-40 6231126816) eGFR (test code = mL/min/1.73m2 0508586193) MITRA (test code = MITRA) Association of Glomerular Filtration Rate (GFR) and Staging of Kidney Disease* + --+ --+ ------+| GFR (mL/min/1.73 m2) ?| With Kidney Damage ?| ?Without Kidney Damage+ --------+ --------+ +| ?>90 ?| ?Stage one ?| ? Normal ?+ ---+ ---+ -------+| ?60-89 ?| ?Stage two ?| ? Decreased GFR ? + --+ --+ ------+| ?30-59 ?| ?Stage three ?| ? Stage three ? + --+ --+ ------+| ?15-29 ?| ?Stage four ? | ? Stage four ?+ ---+ ---+ -------+| ?<15 (or dialysis) ? ?| ?Stage five ? | ? Stage five ?+ ---+ ---+ -------+ *Each stage assumes the associated GFR level has been in effect for at least three months. ?Stages 1 to 5, with or without kidney disease, indicate chronic kidney disease. Notes: Determination of stages one and two (with eGFR >59mL/min/1.73 m2) requires estimation of kidney damage for at least three months as defined by structural or functional abnormalities of the kidney, manifested by either:Pathological abnormalities or Markers of kidney damage (including abnormalities in the composition of the blood or urine or abnormalities in imaging tests). Lab Interpretation Abnormal (test code = 68905-3) [facility] THRMPLAS [id number] 06:18:38 Test Item Value Reference Range Interpretation Comments APTT Patient (test See_Comment [Automat ed code = 3173-2) message] The system which generated this result transmitted reference range : 23 - 38 Seconds . The reference range was not used to interpr et this result as normal/abnormal . MITRA (test code = MITRA) The [facility] patient population mean normal value for aPTT is 30 seconds. Lab Interpretation Normal (test code = 01851-7) [facility] / [id number] 06:16:41 Test Item Value Reference Range Interpretation Comments PROTIME PATIENT (test See_Comment [Auto mated message] code = 5964-2) The system [employer] generated this result transmitted ref erence range: 12.0 - 1 4.7 Seconds. The re ference range was not u sed to interpret this result as normal/abnor mal. INR (test code = 6301-6) Nor mal INR <1.1; Warfarin Therap eutic range 2.0 to 3. 0 or 2.5 to 3.5, dep ending upon the indica tions. Lab Interpretation (test Normal code = 99360-1) [facility]PO[facility] [id number] 05:54:00 Test Item Value Reference Range Interpretation Comments POCT PREG (test code = 1605) negative On board controls acceptable with positive C Line (test code = 3574) POCT PREG LOT # (test code = 3575) [id number] POCT PREG TEST DATE (test 10/06/2023 code = 3576) Lab Interpretation (test code = Normal 41396-7) [id number] 09:05:06 Test Item Value Reference Range Interpretation Comments VITAMIN B-12 (test code = 2840) 734 PG/ML 200-950 VITAMIN D, 25 [id number] 06:47:27 Test Item Value Reference Range Interpretation Comments VITAMIN D, 25 OH 20 NG/ML SEE BELOW L NOTE: 25-H YDROXYVITAMIN D (test code = 4958) ASSAY INC LUDES 25-HYDROXYVITAM IN D2 AND D3. METHODOLOGY IS CHEMILUMINESCEN T IMMUNOASSAY. INTERPRETIVE RA NGES PEDIATRIC (<17 YEARS) . . . . . . . . . . . NG/ML 20-100ADULT: IN SUFFICIENT . . . . . . . . . . . . . . NG/ML <20 SUBOP TIMAL . . . . . . . . . . . . . . . NG/ML 20-29 OPT IMAL . . . . . . . . . . . . . . . . . NG/ML 30-100 UN LESS OTHERWISE INDIC ATED, ALL TESTING PERFORM [facility], I [address] [place] [address] LABORATORY DIRE CTOR: Isai CHAVARRIA. IA NUMBER [id number] CAP ACCREDITATION N O. [id number] COMPREHENSIVE METABOLIC [id number] 06:22:21 Test Item Value Reference Range Interpretation Comments GLUCOSE (test code = 88 MG/DL 70-99 2216) BUN (test code = 5 MG/DL 6-20 L 2207) CREATININE (test 0.75 MG/DL 0.60-1.30 code = 2214) eGFR (2020 CKD-EPI) 98 ML/MIN/1.73 >60 (test code = 41755) CALC BUN/CREAT (test 7 RATIO 6-28 code = 2235) SODIUM (test code = 142 MEQ/L 887-518 4543) POTASSIUM (test code 4.3 MEQ/L 3.5-5.4 = 2227) CHLORIDE (test code 105 MEQ/L 95-107 = 221) CARBON DIOXIDE (test 24 MEQ/L 19-31 code = 2206) CALCIUM (test code = 9.5 MG/DL 8.5-10.5 2208) PROTEIN, TOTAL (test 6.8 G/DL 6.1-8.3 code = 222) ALBUMIN (test code = 4.2 G/DL 3.5-5.2 2200) CALC GLOBULIN (test 2.6 G/DL 1.9-3.7 code = 2240) CALC A/G RATIO (test 1.6 RATIO 1.0-2.6 code = 2234) BILIRUBIN, TOTAL <0.2 MG/DL See_Comment [Automated message] (test code = 2207) The syste m which generated this result transmit breanna reference range : <=1.2. The refe rence range was not u sed to interpret th is result as normal/abnormal . ALKALINE PHOSPHATASE 60 U/L 40-123 (test code = 2204) AST (test code = 34 U/L 9-40 2217) ALT (test code = 29 U/L 5-40 2218) HEMOGLOBIN [id number] 04:55:19 Test Item Value Reference Range Interpretation Comments HEMOGLOBIN A1c (test code = 20761) 5.0 % 4.2-5.6 CBC W/AUTO DIFF WITH [id number] 04:18:31 Test Item Value Reference Range Interpretation Comments WBC (test code = 9.7 K/UL 3.5-11.0 1001) RBC (test code = 3.97 M/UL 3.80-5.40 1002) HEMOGLOBIN (test code 10.2 G/DL 11.5-15.5 L = 1003) HEMATOCRIT (test code 32.8 % 34.0-45.0 L = 1004) MCV (test code = 82.6 fL 80.0-99.0 1005) MCH (test code = 25.7 PG 25.0-33.0 1006) MCHC (test code = 31.1 G/DL 31.0-36.0 1007) RDW (test code = 17.8 % 11.5-15.0 H 1038) NEUTROPHILS (test 71.3 % code = 1008) LYMPHOCYTES (test 19.1 % code = 1010) MONOCYTES (test code 6.8 % = 1011) EOSINOPHILS (test 2.0 % code = 1012) BASOPHILS (test code 0.4 % = 1013) IMMATURE GRANULOCYTES 0.4 % (test code = 1036) NUCLEATED RBCS (test 0.0 /100 WBC'S See_Comment [Aut omated code = 1065) message] The sy stem which generated this result transmitted reference range : 0.0. The refere nce range was not u sed to interpret th is result as normal/abnormal . PLATELET COUNT (test 559 K/UL 130-400 H code = 1015) ABSOLUTE NEUTROPHILS 6.90 K/UL 1.50-7.50 (test code = 1066) ABSOLUTE LYMPHOCYTES 1.85 K/UL 1.00-4.00 (test code = 1067) ABSOLUTE MONOCYTES 0.66 K/UL 0.20-1.00 (test code = 1068) ABSOLUTE EOSINOPHILS 0.19 K/UL 0.00-0.50 (test code = 1040) ABSOLUTE BASOPHILS 0.04 K/UL 0.00-0.20 (test code = 1069) ABS IMMATURE 0.04 K/UL 0.00-0.10 GRANULOCYTES (test code = 1020) ABS NUCLEATED RBCS 0.00 K/UL 0.00-0.11 (test code = 91049) VITAMIN B-12 [ADDED]2022-02-01 00:00:00 Test Item Value Reference Range Interpretation Comments VITAMIN B-12 (test code = 2840) 734 PG/ML VITAMIN B-12 [ADDED]2022-02-01 00:00:00 Test Item Value Reference Range Interpretation Comments VITAMIN B-12 (test code = 2840) 734 PG/ML VITAMIN B-12 [ADDED]2022-02-01 00:00:00 Test Item Value Reference Range Interpretation Comments VITAMIN B-12 (test code = 2840) 734 PG/ML CBC W/AUTO DIFF WITH PLATELETS [ADDED]2022-02-01 00:00:00 Test Item Value Reference Range Interpretation Comments WBC (test code = 1001) 9.7 K/UL RBC (test code = 1002) 3.97 M/UL HEMOGLOBIN (test code = 1003) 10.2 G/DL HEMATOCRIT (test code = 1004) 32.8 % MCV (test code = 1005) 82.6 fL MCH (test code = 1006) 25.7 PG MCHC (test code = 1007) 31.1 G/DL RDW (test code = 1038) 17.8 % NEUTROPHILS (test code = 1008) 71.3 % LYMPHOCYTES (test code = 1010) 19.1 % MONOCYTES (test code = 1011) 6.8 % EOSINOPHILS (test code = 1012) 2.0 % BASOPHILS (test code = 1013) 0.4 % IMMATURE GRANULOCYTES (test 0.4 % code = 1036) NUCLEATED RBCS (test code = 0.0 /100WBC'S 1065) PLATELET COUNT (test code = 559 K/UL 1015) ABSOLUTE NEUTROPHILS (test code 6.90 K/UL = 1066) ABSOLUTE LYMPHOCYTES (test code 1.85 K/UL = 1067) ABSOLUTE MONOCYTES (test code = 0.66 K/UL 1068) ABSOLUTE EOSINOPHILS (test code 0.19 K/UL = 1040) ABSOLUTE BASOPHILS (test code = 0.04 K/UL 1069) ABS IMMATURE GRANULOCYTES (test 0.04 K/UL code = 1020) ABS NUCLEATED RBCS (test code = 0.00 K/UL 28934) CBC W/AUTO DIFF WITH PLATELETS [ADDED]2022-02-01 00:00:00 Test Item Value Reference Range Interpretation Comments WBC (test code = 1001) 9.7 K/UL RBC (test code = 1002) 3.97 M/UL HEMOGLOBIN (test code = 1003) 10.2 G/DL HEMATOCRIT (test code = 1004) 32.8 % MCV (test code = 1005) 82.6 fL MCH (test code = 1006) 25.7 PG MCHC (test code = 1007) 31.1 G/DL RDW (test code = 1038) 17.8 % NEUTROPHILS (test code = 1008) 71.3 % LYMPHOCYTES (test code = 1010) 19.1 % MONOCYTES (test code = 1011) 6.8 % EOSINOPHILS (test code = 1012) 2.0 % BASOPHILS (test code = 1013) 0.4 % IMMATURE GRANULOCYTES (test 0.4 % code = 1036) NUCLEATED RBCS (test code = 0.0 /100WBC'S 1065) PLATELET COUNT (test code = 559 K/UL 1015) ABSOLUTE NEUTROPHILS (test code 6.90 K/UL = 1066) ABSOLUTE LYMPHOCYTES (test code 1.85 K/UL = 1067) ABSOLUTE MONOCYTES (test code = 0.66 K/UL 1068) ABSOLUTE EOSINOPHILS (test code 0.19 K/UL = 1040) ABSOLUTE BASOPHILS (test code = 0.04 K/UL 1069) ABS IMMATURE GRANULOCYTES (test 0.04 K/UL code = 1020) ABS NUCLEATED RBCS (test code = 0.00 K/UL 43590) CBC W/AUTO DIFF WITH PLATELETS [ADDED]2022-02-01 00:00:00 Test Item Value Reference Range Interpretation Comments WBC (test code = 1001) 9.7 K/UL RBC (test code = 1002) 3.97 M/UL HEMOGLOBIN (test code = 1003) 10.2 G/DL HEMATOCRIT (test code = 1004) 32.8 % MCV (test code = 1005) 82.6 fL MCH (test code = 1006) 25.7 PG MCHC (test code = 1007) 31.1 G/DL RDW (test code = 1038) 17.8 % NEUTROPHILS (test code = 1008) 71.3 % LYMPHOCYTES (test code = 1010) 19.1 % MONOCYTES (test code = 1011) 6.8 % EOSINOPHILS (test code = 1012) 2.0 % BASOPHILS (test code = 1013) 0.4 % IMMATURE GRANULOCYTES (test 0.4 % code = 1036) NUCLEATED RBCS (test code = 0.0 /100WBC'S 1065) PLATELET COUNT (test code = 559 K/UL 1015) ABSOLUTE NEUTROPHILS (test code 6.90 K/UL = 1066) ABSOLUTE LYMPHOCYTES (test code 1.85 K/UL = 1067) ABSOLUTE MONOCYTES (test code = 0.66 K/UL 1068) ABSOLUTE EOSINOPHILS (test code 0.19 K/UL = 1040) ABSOLUTE BASOPHILS (test code = 0.04 K/UL 1069) ABS IMMATURE GRANULOCYTES (test 0.04 K/UL code = 1020) ABS NUCLEATED RBCS (test code = 0.00 K/UL 85584) HEMOGLOBIN A1c [ADDED]2022-02-01 00:00:00 Test Item Value Reference Range Interpretation Comments HEMOGLOBIN A1c (test code = 34837) 5.0 % HEMOGLOBIN A1c [ADDED]2022-02-01 00:00:00 Test Item Value Reference Range Interpretation Comments HEMOGLOBIN A1c (test code = 27057) 5.0 % HEMOGLOBIN A1c [ADDED]2022-02-01 00:00:00 Test Item Value Reference Range Interpretation Comments HEMOGLOBIN A1c (test code = 63579) 5.0 % COMPREHENSIVE METABOLIC PANEL [ADDED]2022-02-01 00:00:00 Test Item Value Reference Range Interpretation Comments GLUCOSE (test code = 2217) 88 MG/DL BUN (test code = 2208) 5 MG/DL CREATININE (test code = 2214) 0.75 MG/DL eGFR (2020 CKD-EPI) (test code 98 ML/MIN/1.73 = 49458) CALC BUN/CREAT (test code = 7 RATIO 2235) SODIUM (test code = 2231) 142 MEQ/L POTASSIUM (test code = 2228) 4.3 MEQ/L CHLORIDE (test code = 2215) 105 MEQ/L CARBON DIOXIDE (test code = 24 MEQ/L 2205) CALCIUM (test code = 2209) 9.5 MG/DL PROTEIN, TOTAL (test code = 6.8 G/DL 2228) ALBUMIN (test code = 2201) 4.2 G/DL CALC GLOBULIN (test code = 2.6 G/DL 0) CALC A/G RATIO (test code = 1.6 RATIO 2234) BILIRUBIN, TOTAL (test code = <0.2 MG/DL 2206) ALKALINE PHOSPHATASE (test 60 U/L code = 2204) AST (test code = 2218) 34 U/L ALT (test code = 2219) 29 U/L COMPREHENSIVE METABOLIC PANEL [ADDED]2022-02-01 00:00:00 Test Item Value Reference Range Interpretation Comments GLUCOSE (test code = 2217) 88 MG/DL BUN (test code = 2208) 5 MG/DL CREATININE (test code = 2214) 0.75 MG/DL eGFR (2020 CKD-EPI) (test code 98 ML/MIN/1.73 = 69118) CALC BUN/CREAT (test code = 7 RATIO 5) SODIUM (test code = 2231) 142 MEQ/L POTASSIUM (test code = 2228) 4.3 MEQ/L CHLORIDE (test code = 2215) 105 MEQ/L CARBON DIOXIDE (test code = 24 MEQ/L 2205) CALCIUM (test code = 2209) 9.5 MG/DL PROTEIN, TOTAL (test code = 6.8 G/DL 2228) ALBUMIN (test code = 220) 4.2 G/DL CALC GLOBULIN (test code = 2.6 G/DL 2239) CALC A/G RATIO (test code = 1.6 RATIO 2233) BILIRUBIN, TOTAL (test code = <0.2 MG/DL 2206) ALKALINE PHOSPHATASE (test 60 U/L code = 2204) AST (test code = 2218) 34 U/L ALT (test code = 2219) 29 U/L VITAMIN D, 25 OH [ADDED]2022-02-01 00:00:00 Test Item Value Reference Range Interpretation Comments VITAMIN D, 25 OH (test code = 4958) 20 NG/ML VITAMIN D, 25 OH [ADDED]2022-02-01 00:00:00 Test Item Value Reference Range Interpretation Comments VITAMIN D, 25 OH (test code = 4958) 20 NG/ML VITAMIN B-12 [ADDED]2022-02-01 00:00:00 Test Item Value Reference Range Interpretation Comments VITAMIN B-12 (test code = 2840) 734 PG/ML VITAMIN B-12 [ADDED]2022-02-01 00:00:00 Test Item Value Reference Range Interpretation Comments VITAMIN B-12 (test code = 2840) 734 PG/ML VITAMIN B-12 [ADDED]2022-02-01 00:00:00 Test Item Value Reference Range Interpretation Comments VITAMIN B-12 (test code = 2840) 734 PG/ML CBC W/AUTO DIFF WITH PLATELETS [ADDED]2022-02-01 00:00:00 Test Item Value Reference Range Interpretation Comments WBC (test code = 1001) 9.7 K/UL RBC (test code = 1002) 3.97 M/UL HEMOGLOBIN (test code = 1003) 10.2 G/DL HEMATOCRIT (test code = 1004) 32.8 % MCV (test code = 1005) 82.6 fL MCH (test code = 1006) 25.7 PG MCHC (test code = 1007) 31.1 G/DL RDW (test code = 1038) 17.8 % NEUTROPHILS (test code = 1008) 71.3 % LYMPHOCYTES (test code = 1010) 19.1 % MONOCYTES (test code = 1011) 6.8 % EOSINOPHILS (test code = 1012) 2.0 % BASOPHILS (test code = 1013) 0.4 % IMMATURE GRANULOCYTES (test 0.4 % code = 1036) NUCLEATED RBCS (test code = 0.0 /100WBC'S 1065) PLATELET COUNT (test code = 559 K/UL 1015) ABSOLUTE NEUTROPHILS (test code 6.90 K/UL = 1066) ABSOLUTE LYMPHOCYTES (test code 1.85 K/UL = 1067) ABSOLUTE MONOCYTES (test code = 0.66 K/UL 1068) ABSOLUTE EOSINOPHILS (test code 0.19 K/UL = 1040) ABSOLUTE BASOPHILS (test code = 0.04 K/UL 1069) ABS IMMATURE GRANULOCYTES (test 0.04 K/UL code = 1020) ABS NUCLEATED RBCS (test code = 0.00 K/UL 14491) CBC W/AUTO DIFF WITH PLATELETS [ADDED]2022-02-01 00:00:00 Test Item Value Reference Range Interpretation Comments WBC (test code = 1001) 9.7 K/UL RBC (test code = 1002) 3.97 M/UL HEMOGLOBIN (test code = 1003) 10.2 G/DL HEMATOCRIT (test code = 1004) 32.8 % MCV (test code = 1005) 82.6 fL MCH (test code = 1006) 25.7 PG MCHC (test code = 1007) 31.1 G/DL RDW (test code = 1038) 17.8 % NEUTROPHILS (test code = 1008) 71.3 % LYMPHOCYTES (test code = 1010) 19.1 % MONOCYTES (test code = 1011) 6.8 % EOSINOPHILS (test code = 1012) 2.0 % BASOPHILS (test code = 1013) 0.4 % IMMATURE GRANULOCYTES (test 0.4 % code = 1036) NUCLEATED RBCS (test code = 0.0 /100WBC'S 1065) PLATELET COUNT (test code = 559 K/UL 1015) ABSOLUTE NEUTROPHILS (test code 6.90 K/UL = 1066) ABSOLUTE LYMPHOCYTES (test code 1.85 K/UL = 1067) ABSOLUTE MONOCYTES (test code = 0.66 K/UL 1068) ABSOLUTE EOSINOPHILS (test code 0.19 K/UL = 1040) ABSOLUTE BASOPHILS (test code = 0.04 K/UL 1069) ABS IMMATURE GRANULOCYTES (test 0.04 K/UL code = 1020) ABS NUCLEATED RBCS (test code = 0.00 K/UL 65069) CBC W/AUTO DIFF WITH PLATELETS [ADDED]2022-02-01 00:00:00 Test Item Value Reference Range Interpretation Comments WBC (test code = 1001) 9.7 K/UL RBC (test code = 1002) 3.97 M/UL HEMOGLOBIN (test code = 1003) 10.2 G/DL HEMATOCRIT (test code = 1004) 32.8 % MCV (test code = 1005) 82.6 fL MCH (test code = 1006) 25.7 PG MCHC (test code = 1007) 31.1 G/DL RDW (test code = 1038) 17.8 % NEUTROPHILS (test code = 1008) 71.3 % LYMPHOCYTES (test code = 1010) 19.1 % MONOCYTES (test code = 1011) 6.8 % EOSINOPHILS (test code = 1012) 2.0 % BASOPHILS (test code = 1013) 0.4 % IMMATURE GRANULOCYTES (test 0.4 % code = 1036) NUCLEATED RBCS (test code = 0.0 /100WBC'S 1065) PLATELET COUNT (test code = 559 K/UL 1015) ABSOLUTE NEUTROPHILS (test code 6.90 K/UL = 1066) ABSOLUTE LYMPHOCYTES (test code 1.85 K/UL = 1067) ABSOLUTE MONOCYTES (test code = 0.66 K/UL 1068) ABSOLUTE EOSINOPHILS (test code 0.19 K/UL = 1040) ABSOLUTE BASOPHILS (test code = 0.04 K/UL 1069) ABS IMMATURE GRANULOCYTES (test 0.04 K/UL code = 1020) ABS NUCLEATED RBCS (test code = 0.00 K/UL 90012) HEMOGLOBIN A1c [ADDED]2022-02-01 00:00:00 Test Item Value Reference Range Interpretation Comments HEMOGLOBIN A1c (test code = 12776) 5.0 % HEMOGLOBIN A1c [ADDED]2022-02-01 00:00:00 Test Item Value Reference Range Interpretation Comments HEMOGLOBIN A1c (test code = 47296) 5.0 % HEMOGLOBIN A1c [ADDED]2022-02-01 00:00:00 Test Item Value Reference Range Interpretation Comments HEMOGLOBIN A1c (test code = 16588) 5.0 % COMPREHENSIVE METABOLIC PANEL [ADDED]2022-02-01 00:00:00 Test Item Value Reference Range Interpretation Comments GLUCOSE (test code = 2217) 88 MG/DL BUN (test code = 2208) 5 MG/DL CREATININE (test code = 2214) 0.75 MG/DL eGFR (2020 CKD-EPI) (test code 98 ML/MIN/1.73 = 75363) CALC BUN/CREAT (test code = 7 RATIO 2235) SODIUM (test code = 2231) 142 MEQ/L POTASSIUM (test code = 2228) 4.3 MEQ/L CHLORIDE (test code = 2215) 105 MEQ/L CARBON DIOXIDE (test code = 24 MEQ/L 2205) CALCIUM (test code = 2209) 9.5 MG/DL PROTEIN, TOTAL (test code = 6.8 G/DL 2228) ALBUMIN (test code = 2201) 4.2 G/DL CALC GLOBULIN (test code = 2.6 G/DL 0) CALC A/G RATIO (test code = 1.6 RATIO 2234) BILIRUBIN, TOTAL (test code = <0.2 MG/DL 2206) ALKALINE PHOSPHATASE (test 60 U/L code = 2204) AST (test code = 2218) 34 U/L ALT (test code = 2219) 29 U/L COMPREHENSIVE METABOLIC PANEL [ADDED]2022-02-01 00:00:00 Test Item Value Reference Range Interpretation Comments GLUCOSE (test code = 2217) 88 MG/DL BUN (test code = 2208) 5 MG/DL CREATININE (test code = 2214) 0.75 MG/DL eGFR (2020 CKD-EPI) (test code 98 ML/MIN/1.73 = 19824) CALC BUN/CREAT (test code = 7 RATIO 2235) SODIUM (test code = 2231) 142 MEQ/L POTASSIUM (test code = 2228) 4.3 MEQ/L CHLORIDE (test code = 2215) 105 MEQ/L CARBON DIOXIDE (test code = 24 MEQ/L 2205) CALCIUM (test code = 2209) 9.5 MG/DL PROTEIN, TOTAL (test code = 6.8 G/DL 2228) ALBUMIN (test code = 2201) 4.2 G/DL CALC GLOBULIN (test code = 2.6 G/DL 2239) CALC A/G RATIO (test code = 1.6 RATIO 2233) BILIRUBIN, TOTAL (test code = <0.2 MG/DL 2206) ALKALINE PHOSPHATASE (test 60 U/L code = 2203) AST (test code = 2218) 34 U/L ALT (test code = 221) 29 U/L VITAMIN D, 25 OH [ADDED]2022-02-01 00:00:00 Test Item Value Reference Range Interpretation Comments VITAMIN D, 25 OH (test code = 4958) 20 NG/ML VITAMIN D, 25 OH [ADDED]2022-02-01 00:00:00 Test Item Value Reference Range Interpretation Comments VITAMIN D, 25 OH (test code = 4958) 20 NG/ML VITAMIN B-12 [ADDED]2022-02-01 00:00:00 Test Item Value Reference Range Interpretation Comments VITAMIN B-12 (test code = 2840) 734 PG/ML VITAMIN B-12 [ADDED]2022-02-01 00:00:00 Test Item Value Reference Range Interpretation Comments VITAMIN B-12 (test code = 2840) 734 PG/ML VITAMIN B-12 [ADDED]2022-02-01 00:00:00 Test Item Value Reference Range Interpretation Comments VITAMIN B-12 (test code = 2840) 734 PG/ML CBC W/AUTO DIFF WITH PLATELETS [ADDED]2022-02-01 00:00:00 Test Item Value Reference Range Interpretation Comments WBC (test code = 1001) 9.7 K/UL RBC (test code = 1002) 3.97 M/UL HEMOGLOBIN (test code = 1003) 10.2 G/DL HEMATOCRIT (test code = 1004) 32.8 % MCV (test code = 1005) 82.6 fL MCH (test code = 1006) 25.7 PG MCHC (test code = 1007) 31.1 G/DL RDW (test code = 1038) 17.8 % NEUTROPHILS (test code = 1008) 71.3 % LYMPHOCYTES (test code = 1010) 19.1 % MONOCYTES (test code = 1011) 6.8 % EOSINOPHILS (test code = 1012) 2.0 % BASOPHILS (test code = 1013) 0.4 % IMMATURE GRANULOCYTES (test 0.4 % code = 1036) NUCLEATED RBCS (test code = 0.0 /100WBC'S 1065) PLATELET COUNT (test code = 559 K/UL 1015) ABSOLUTE NEUTROPHILS (test code 6.90 K/UL = 1066) ABSOLUTE LYMPHOCYTES (test code 1.85 K/UL = 1067) ABSOLUTE MONOCYTES (test code = 0.66 K/UL 1068) ABSOLUTE EOSINOPHILS (test code 0.19 K/UL = 1040) ABSOLUTE BASOPHILS (test code = 0.04 K/UL 1069) ABS IMMATURE GRANULOCYTES (test 0.04 K/UL code = 1020) ABS NUCLEATED RBCS (test code = 0.00 K/UL 38706) CBC W/AUTO DIFF WITH PLATELETS [ADDED]2022-02-01 00:00:00 Test Item Value Reference Range Interpretation Comments WBC (test code = 1001) 9.7 K/UL RBC (test code = 1002) 3.97 M/UL HEMOGLOBIN (test code = 1003) 10.2 G/DL HEMATOCRIT (test code = 1004) 32.8 % MCV (test code = 1005) 82.6 fL MCH (test code = 1006) 25.7 PG MCHC (test code = 1007) 31.1 G/DL RDW (test code = 1038) 17.8 % NEUTROPHILS (test code = 1008) 71.3 % LYMPHOCYTES (test code = 1010) 19.1 % MONOCYTES (test code = 1011) 6.8 % EOSINOPHILS (test code = 1012) 2.0 % BASOPHILS (test code = 1013) 0.4 % IMMATURE GRANULOCYTES (test 0.4 % code = 1036) NUCLEATED RBCS (test code = 0.0 /100WBC'S 1065) PLATELET COUNT (test code = 559 K/UL 1015) ABSOLUTE NEUTROPHILS (test code 6.90 K/UL = 1066) ABSOLUTE LYMPHOCYTES (test code 1.85 K/UL = 1067) ABSOLUTE MONOCYTES (test code = 0.66 K/UL 1068) ABSOLUTE EOSINOPHILS (test code 0.19 K/UL = 1040) ABSOLUTE BASOPHILS (test code = 0.04 K/UL 1069) ABS IMMATURE GRANULOCYTES (test 0.04 K/UL code = 1020) ABS NUCLEATED RBCS (test code = 0.00 K/UL 59693) CBC W/AUTO DIFF WITH PLATELETS [ADDED]2022-02-01 00:00:00 Test Item Value Reference Range Interpretation Comments WBC (test code = 1001) 9.7 K/UL RBC (test code = 1002) 3.97 M/UL HEMOGLOBIN (test code = 1003) 10.2 G/DL HEMATOCRIT (test code = 1004) 32.8 % MCV (test code = 1005) 82.6 fL MCH (test code = 1006) 25.7 PG MCHC (test code = 1007) 31.1 G/DL RDW (test code = 1038) 17.8 % NEUTROPHILS (test code = 1008) 71.3 % LYMPHOCYTES (test code = 1010) 19.1 % MONOCYTES (test code = 1011) 6.8 % EOSINOPHILS (test code = 1012) 2.0 % BASOPHILS (test code = 1013) 0.4 % IMMATURE GRANULOCYTES (test 0.4 % code = 1036) NUCLEATED RBCS (test code = 0.0 /100WBC'S 1065) PLATELET COUNT (test code = 559 K/UL 1015) ABSOLUTE NEUTROPHILS (test code 6.90 K/UL = 1066) ABSOLUTE LYMPHOCYTES (test code 1.85 K/UL = 1067) ABSOLUTE MONOCYTES (test code = 0.66 K/UL 1068) ABSOLUTE EOSINOPHILS (test code 0.19 K/UL = 1040) ABSOLUTE BASOPHILS (test code = 0.04 K/UL 1069) ABS IMMATURE GRANULOCYTES (test 0.04 K/UL code = 1020) ABS NUCLEATED RBCS (test code = 0.00 K/UL 10218) HEMOGLOBIN A1c [ADDED]2022-02-01 00:00:00 Test Item Value Reference Range Interpretation Comments HEMOGLOBIN A1c (test code = 72662) 5.0 % HEMOGLOBIN A1c [ADDED]2022-02-01 00:00:00 Test Item Value Reference Range Interpretation Comments HEMOGLOBIN A1c (test code = 32041) 5.0 % HEMOGLOBIN A1c [ADDED]2022-02-01 00:00:00 Test Item Value Reference Range Interpretation Comments HEMOGLOBIN A1c (test code = 72321) 5.0 % COMPREHENSIVE METABOLIC PANEL [ADDED]2022-02-01 00:00:00 Test Item Value Reference Range Interpretation Comments GLUCOSE (test code = 2217) 88 MG/DL BUN (test code = 2208) 5 MG/DL CREATININE (test code = 2214) 0.75 MG/DL eGFR (2020 CKD-EPI) (test code 98 ML/MIN/1.73 = 98800) CALC BUN/CREAT (test code = 7 RATIO 2235) SODIUM (test code = 2231) 142 MEQ/L POTASSIUM (test code = 2228) 4.3 MEQ/L CHLORIDE (test code = 2215) 105 MEQ/L CARBON DIOXIDE (test code = 24 MEQ/L 2205) CALCIUM (test code = 2209) 9.5 MG/DL PROTEIN, TOTAL (test code = 6.8 G/DL 2228) ALBUMIN (test code = 2201) 4.2 G/DL CALC GLOBULIN (test code = 2.6 G/DL 2239) CALC A/G RATIO (test code = 1.6 RATIO 2234) BILIRUBIN, TOTAL (test code = <0.2 MG/DL 2206) ALKALINE PHOSPHATASE (test 60 U/L code = 2204) AST (test code = 2218) 34 U/L ALT (test code = 2219) 29 U/L COMPREHENSIVE METABOLIC PANEL [ADDED]2022-02-01 00:00:00 Test Item Value Reference Range Interpretation Comments GLUCOSE (test code = 2217) 88 MG/DL BUN (test code = 2208) 5 MG/DL CREATININE (test code = 2214) 0.75 MG/DL eGFR (2020 CKD-EPI) (test code 98 ML/MIN/1.73 = 27333) CALC BUN/CREAT (test code = 7 RATIO 2235) SODIUM (test code = 2231) 142 MEQ/L POTASSIUM (test code = 2228) 4.3 MEQ/L CHLORIDE (test code = 2215) 105 MEQ/L CARBON DIOXIDE (test code = 24 MEQ/L 220) CALCIUM (test code = 2209) 9.5 MG/DL PROTEIN, TOTAL (test code = 6.8 G/DL 2228) ALBUMIN (test code = 2201) 4.2 G/DL CALC GLOBULIN (test code = 2.6 G/DL 2240) CALC A/G RATIO (test code = 1.6 RATIO 4) BILIRUBIN, TOTAL (test code = <0.2 MG/DL 2206) ALKALINE PHOSPHATASE (test 60 U/L code = 2204) AST (test code = 2218) 34 U/L ALT (test code = 2219) 29 U/L VITAMIN D, 25 OH [ADDED]2022-02-01 00:00:00 Test Item Value Reference Range Interpretation Comments VITAMIN D, 25 OH (test code = 4958) 20 NG/ML VITAMIN D, 25 OH [ADDED]2022-02-01 00:00:00 Test Item Value Reference Range Interpretation Comments VITAMIN D, 25 OH (test code = 4958) 20 NG/ML [id number] 21:09:48 Test Item Value Reference Range Interpretation Comments MAGNESIUM (test code = 0163635427) 2.0 mg/dL 1.7-2.4 Lab Interpretation (test code = Normal 46160-8) [facility]. METABOLIC PANEL (34076)2022-01-28 21:09:08 Test Item Value Reference Range Interpretation Comments NA (test code = 139 mmol/L 135-145 7162855356) K (test code = 3.8 mmol/L 3.5-5 9140593678) CL (test code = 107 mmol/L 98-108 9905926633) CO2 TOTAL (test code = 27 mmol/L 23-31 6646936335) AGAP (test code = 2-16 0962717457) BUN (test code = 8 mg/dL 7-23 1483446255) GLUCOSE (test code = 101 mg/dL 70-110 6676593683) CREATININE (test code = 0.57 mg/dL 0.5-1.04 6733684084) TOTAL BILI (test code = 0.3 mg/dL 0.1-1.9 6395421729) CALCIUM (test code = 8.7 mg/dL 8.6-10.6 9997866529) T PROTEIN (test code = 6.0 g/dL 6.3-8.2 L 1596753924) ALBUMIN (test code = 3.6 g/dL 3.5-5 5161662637) ALK PHOS (test code = 56 U/L 34-122 9887843010) ALTv (test code = 20 U/L 5-35 1742-6) AST(SGOT) (test code = 22 U/L 13-40 2062595486) eGFR (test code = mL/min/1.73m2 6380835486) MITRA (test code = MITRA) Association of Glomerular Filtration Rate (GFR) and Staging of Kidney Disease* + --+ --+ ------+| GFR (mL/min/1.73 m2) ?| With Kidney Damage ?| ?Without Kidney Damage+ --------+ --------+ +| ?>90 ?| ?Stage one ?| ? Normal ?+ ---+ ---+ -------+| ?60-89 ?| ?Stage two ?| ? Decreased GFR ? + --+ --+ ------+| ?30-59 ?| ?Stage three ?| ? Stage three ? + --+ --+ ------+| ?15-29 ?| ?Stage four ? | ? Stage four ?+ ---+ ---+ -------+| ?<15 (or dialysis) ? ?| ?Stage five ? | ? Stage five ?+ ---+ ---+ -------+ *Each stage assumes the associated GFR level has been in effect for at least three months. ?Stages 1 to 5, with or without kidney disease, indicate chronic kidney disease. Notes: Determination of stages one and two (with eGFR >59mL/min/1.73 m2) requires estimation of kidney damage for at least three months as defined by structural or functional abnormalities of the kidney, manifested by either:Pathological abnormalities or Markers of kidney damage (including abnormalities in the composition of the blood or urine or abnormalities in imaging tests). Lab Interpretation Abnormal (test code = 05172-9) [facility] [id number] 21:09:08 Test Item Value Reference Range Interpretation Comments CK (test code = [id number]) 81 U/L 33-194 Lab Interpretation (test code = Normal 21521-9) [facility] WITH [id number] 20:56:49 Test Item Value Reference Range Interpretation Comments WBC (test code = See_Comment H [Automated 6690-2) message] The sy stem which generated this result transmitted reference range : 4.30 - 11.10 10*3/?L. The reference range was not used to interpret this result as normal/abnormal . RBC (test code = See_Comment L [Automated 789-8) message] The sy stem which generated this result transmitted reference range : 3.93 - 5.25 10*6/?L. The reference range was not used to interpret this result as normal/abnormal . HGB (test code = 9.5 g/dL 11.6-15 L 718-7) HCT (test code = 31.0 % 35.7-45.2 L 4544-3) MCV (test code = 81.8 fL 80.6-95.5 787-2) MCH (test code = 25.1 pg 25.9-32.8 L 785-6) MCHC (test code = 30.6 g/dL 31.6-35.1 L 786-4) RDW-SD (test code = 62.4 fL 39-49.9 H 37030-5) RDW-CV (test code = 21.2 % 12-15.5 H 788-0) PLT (test code = See_Comment H [Automated 777-3) message] The sy stem which generated this result transmitted reference range : 166 - 358 10*3/ ?L. The reference r anna was not used to interpret this result as normal/abnormal . MPV (test code = 9.3 fL 9.5-12.9 L 50802-2) NRBC/100 WBC (test See_Comment [Automat ed code = [id number]) message] The system which generated this result transmitted reference range : 0.0 - 10.0 /100 WBCs. The refer ence range was not u sed to interpret th is result as normal/abnormal . NRBC x10^3 (test code See_Comment [Auto mated = [id number]) message] The s ystem which generated this result transmitted reference range : 10*3/?L. The reference range was not used to interpret this result as normal/abnormal . GRAN MAT (NEUT) % 75.1 % (test code = 770-8) IMM GRAN % (test code 0.60 % = [id number]) LYMPH % (test code = 14.3 % 736-9) MONO % (test code = 6.5 % 5905-5) EOS % (test code = 3.2 % 713-8) BASO % (test code = 0.3 % 706-2) GRAN MAT x10^3(ANC) 8.71 10*3/uL 1.88-7.09 H (test code = [id number]) IMM GRAN x10^3 (test 0.07 10*3/uL 0-0.06 H code = [id number]) LYMPH x10^3 (test code 1.66 10*3/uL 1.32-3.29 = 731-0) MONO x10^3 (test code 0.75 10*3/uL 0.33-0.92 = 742-7) EOS x10^3 (test code = 0.37 10*3/uL 0.03-0.39 711-2) BASO x10^3 (test code 0.03 10*3/uL 0.01-0.07 = 704-7) Lab Interpretation Abnormal (test code = 48340-1) [facility] (HIGH RISK) 2021-03-09 00:00:00 Test Item Value Reference Range Interpretation Comments SARS-CoV-2 INTERPRETATION (test NEGATIVE code = 49755) SOURCE (test code = 99601) NOT SPECIFIED SARS-CoV-2 (COVID-19) by RT-PCR (HIGH RISK)2021-03-09 00:00:00 Test Item Value Reference Range Interpretation Comments SARS-CoV-2 INTERPRETATION (test NEGATIVE code = 70850) SOURCE (test code = 44858) NOT SPECIFIED SARS-CoV-2 (COVID-19) by RT-PCR (HIGH RISK)2021-03-09 00:00:00 Test Item Value Reference Range Interpretation Comments SARS-CoV-2 INTERPRETATION (test NEGATIVE code = 92442) SOURCE (test code = 91575) NOT SPECIFIED SARS-CoV-2 (COVID-19) by RT-PCR (HIGH RISK)2021-03-09 00:00:00 Test Item Value Reference Range Interpretation Comments SARS-CoV-2 INTERPRETATION (test NEGATIVE code = 78066) SOURCE (test code = 43653) NOT SPECIFIED SARS-CoV-2 (COVID-19) by RT-PCR (HIGH RISK)2021-03-09 00:00:00 Test Item Value Reference Range Interpretation Comments SARS-CoV-2 INTERPRETATION (test NEGATIVE code = 72144) SOURCE (test code = 57684) NOT SPECIFIED SARS-CoV-2 (COVID-19) by RT-PCR (HIGH RISK)2021-03-09 00:00:00 Test Item Value Reference Range Interpretation Comments SARS-CoV-2 INTERPRETATION (test NEGATIVE code = 06216) SOURCE (test code = 79254) NOT SPECIFIED SARS-CoV-2 (COVID-19) by RT-PCR (HIGH RISK)2021-03-09 00:00:00 Test Item Value Reference Range Interpretation Comments SARS-CoV-2 INTERPRETATION (test NEGATIVE code = 62680) SOURCE (test code = 53904) NOT SPECIFIED CBC W/AUTO [id number] 00:00:00 Test Item Value Reference Range Interpretation Comments WBC (test code = 1001) 9.5 K/UL RBC (test code = 1002) 4.16 M/UL HEMOGLOBIN (test code = 1003) 8.7 G/DL HEMATOCRIT (test code = 1004) 29.9 % MCV (test code = 1005) 71.9 fL MCH (test code = 1006) 20.9 PG MCHC (test code = 1007) 29.1 G/DL RDW (test code = 1038) 27.6 % NEUTROPHILS (test code = 1008) 73.1 % LYMPHOCYTES (test code = 1010) 17.0 % MONOCYTES (test code = 1011) 7.1 % EOSINOPHILS (test code = 1012) 1.8 % BASOPHILS (test code = 1013) 0.5 % IMMATURE GRANULOCYTES (test 0.5 % code = 1036) NUCLEATED RBCS (test code = 0.0 /100WBC'S 1065) PLATELET COUNT (test code = 270 K/UL 1015) ABSOLUTE NEUTROPHILS (test code 6.92 K/UL = 1066) ABSOLUTE LYMPHOCYTES (test code 1.61 K/UL = 1067) ABSOLUTE MONOCYTES (test code = 0.67 K/UL 1068) ABSOLUTE EOSINOPHILS (test code 0.17 K/UL = 1040) ABSOLUTE BASOPHILS (test code = 0.05 K/UL 1069) ABS IMMATURE GRANULOCYTES (test 0.05 K/UL code = 1020) ABS NUCLEATED RBCS (test code = 0.00 K/UL 90204) COMMENTS (test code = 1016) (NOTE) CBC W/AUTO [id number] 00:00:00 Test Item Value Reference Range Interpretation Comments WBC (test code = 1001) 9.5 K/UL RBC (test code = 1002) 4.16 M/UL HEMOGLOBIN (test code = 1003) 8.7 G/DL HEMATOCRIT (test code = 1004) 29.9 % MCV (test code = 1005) 71.9 fL MCH (test code = 1006) 20.9 PG MCHC (test code = 1007) 29.1 G/DL RDW (test code = 1038) 27.6 % NEUTROPHILS (test code = 1008) 73.1 % LYMPHOCYTES (test code = 1010) 17.0 % MONOCYTES (test code = 1011) 7.1 % EOSINOPHILS (test code = 1012) 1.8 % BASOPHILS (test code = 1013) 0.5 % IMMATURE GRANULOCYTES (test 0.5 % code = 1036) NUCLEATED RBCS (test code = 0.0 /100WBC'S 1065) PLATELET COUNT (test code = 270 K/UL 1015) ABSOLUTE NEUTROPHILS (test code 6.92 K/UL = 1066) ABSOLUTE LYMPHOCYTES (test code 1.61 K/UL = 1067) ABSOLUTE MONOCYTES (test code = 0.67 K/UL 1068) ABSOLUTE EOSINOPHILS (test code 0.17 K/UL = 1040) ABSOLUTE BASOPHILS (test code = 0.05 K/UL 1069) ABS IMMATURE GRANULOCYTES (test 0.05 K/UL code = 1020) ABS NUCLEATED RBCS (test code = 0.00 K/UL 77752) COMMENTS (test code = 1016) (NOTE) CBC W/AUTO [id number] 00:00:00 Test Item Value Reference Range Interpretation Comments WBC (test code = 1001) 9.5 K/UL RBC (test code = 1002) 4.16 M/UL HEMOGLOBIN (test code = 1003) 8.7 G/DL HEMATOCRIT (test code = 1004) 29.9 % MCV (test code = 1005) 71.9 fL MCH (test code = 1006) 20.9 PG MCHC (test code = 1007) 29.1 G/DL RDW (test code = 1038) 27.6 % NEUTROPHILS (test code = 1008) 73.1 % LYMPHOCYTES (test code = 1010) 17.0 % MONOCYTES (test code = 1011) 7.1 % EOSINOPHILS (test code = 1012) 1.8 % BASOPHILS (test code = 1013) 0.5 % IMMATURE GRANULOCYTES (test 0.5 % code = 1036) NUCLEATED RBCS (test code = 0.0 /100WBC'S 1065) PLATELET COUNT (test code = 270 K/UL 1015) ABSOLUTE NEUTROPHILS (test code 6.92 K/UL = 1066) ABSOLUTE LYMPHOCYTES (test code 1.61 K/UL = 1067) ABSOLUTE MONOCYTES (test code = 0.67 K/UL 1068) ABSOLUTE EOSINOPHILS (test code 0.17 K/UL = 1040) ABSOLUTE BASOPHILS (test code = 0.05 K/UL 1069) ABS IMMATURE GRANULOCYTES (test 0.05 K/UL code = 1020) ABS NUCLEATED RBCS (test code = 0.00 K/UL 61852) COMMENTS (test code = 1016) (NOTE) HIV AB/AG COMBO RFLX [id number] 00:00:00 Test Item Value Reference Range Interpretation Comments HIV 1/2 4TH GEN, RFLX CONF (test NON-REACTIVE code = 3514) HIV AB/AG COMBO RFLX [id number] 00:00:00 Test Item Value Reference Range Interpretation Comments HIV 1/2 4TH GEN, RFLX CONF (test NON-REACTIVE code = 3514) ACUTE HEPATITIS [id number] 00:00:00 Test Item Value Reference Range Interpretation Comments HEPATITIS A IgM (test code = NON-REACTIVE 51024) HEPATITIS B CORE IgM (test code NON-REACTIVE = 4644) HEPATITIS B SURF AG (test code = NON-REACTIVE 2739) HEPATITIS C ANTIBODY (test code NON-REACTIVE = 4675) INTERPRETATION HEPATITIS A: (NOTE) (test code = 2552) INTERPRETATION HEPATITIS B: (NOTE) (test code = 28176) INTERPRETATION HEPATITIS C: (NOTE) (test code = 80718) ACUTE HEPATITIS [id number] 00:00:00 Test Item Value Reference Range Interpretation Comments HEPATITIS A IgM (test code = NON-REACTIVE 78005) HEPATITIS B CORE IgM (test code NON-REACTIVE = 4644) HEPATITIS B SURF AG (test code = NON-REACTIVE 2739) HEPATITIS C ANTIBODY (test code NON-REACTIVE = 4675) INTERPRETATION HEPATITIS A: (NOTE) (test code = 2552) INTERPRETATION HEPATITIS B: (NOTE) (test code = 47270) INTERPRETATION HEPATITIS C: (NOTE) (test code = 40609) GC AND CHLAMYDIA, AMPLIFIED, [id number] 00:00:00 Test Item Value Reference Range Interpretation Comments GONORRHEA, NAAT (test code = 67415) NEGATIVE CHLAMYDIA, NAAT (test code = 16975) NEGATIVE GC AND CHLAMYDIA, AMPLIFIED, [id number] 00:00:00 Test Item Value Reference Range Interpretation Comments GONORRHEA, NAAT (test code = 93008) NEGATIVE CHLAMYDIA, NAAT (test code = 82485) NEGATIVE [id number] 00:00:00 Test Item Value Reference Range Interpretation Comments RPR RESULT (test code = NON-REACTIVE 3501) RPR TITER (test code = 3500) NOT INDIC. TITER [id number] 00:00:00 Test Item Value Reference Range Interpretation Comments RPR RESULT (test code = NON-REACTIVE 3501) RPR TITER (test code = 3500) NOT INDIC. TITER [id number] 00:00:00 Test Item Value Reference Range Interpretation Comments RPR RESULT (test code = NON-REACTIVE 3501) RPR TITER (test code = 3500) NOT INDIC. TITER CBC W/AUTO [id number] 00:00:00 Test Item Value Reference Range Interpretation Comments WBC (test code = 1001) 9.5 K/UL RBC (test code = 1002) 4.16 M/UL HEMOGLOBIN (test code = 1003) 8.7 G/DL HEMATOCRIT (test code = 1004) 29.9 % MCV (test code = 1005) 71.9 fL MCH (test code = 1006) 20.9 PG MCHC (test code = 1007) 29.1 G/DL RDW (test code = 1038) 27.6 % NEUTROPHILS (test code = 1008) 73.1 % LYMPHOCYTES (test code = 1010) 17.0 % MONOCYTES (test code = 1011) 7.1 % EOSINOPHILS (test code = 1012) 1.8 % BASOPHILS (test code = 1013) 0.5 % IMMATURE GRANULOCYTES (test 0.5 % code = 1036) NUCLEATED RBCS (test code = 0.0 /100WBC'S 1065) PLATELET COUNT (test code = 270 K/UL 1015) ABSOLUTE NEUTROPHILS (test code 6.92 K/UL = 1066) ABSOLUTE LYMPHOCYTES (test code 1.61 K/UL = 1067) ABSOLUTE MONOCYTES (test code = 0.67 K/UL 1068) ABSOLUTE EOSINOPHILS (test code 0.17 K/UL = 1040) ABSOLUTE BASOPHILS (test code = 0.05 K/UL 1069) ABS IMMATURE GRANULOCYTES (test 0.05 K/UL code = 1020) ABS NUCLEATED RBCS (test code = 0.00 K/UL 78569) COMMENTS (test code = 1016) (NOTE) CBC W/AUTO [id number] 00:00:00 Test Item Value Reference Range Interpretation Comments WBC (test code = 1001) 9.5 K/UL RBC (test code = 1002) 4.16 M/UL HEMOGLOBIN (test code = 1003) 8.7 G/DL HEMATOCRIT (test code = 1004) 29.9 % MCV (test code = 1005) 71.9 fL MCH (test code = 1006) 20.9 PG MCHC (test code = 1007) 29.1 G/DL RDW (test code = 1038) 27.6 % NEUTROPHILS (test code = 1008) 73.1 % LYMPHOCYTES (test code = 1010) 17.0 % MONOCYTES (test code = 1011) 7.1 % EOSINOPHILS (test code = 1012) 1.8 % BASOPHILS (test code = 1013) 0.5 % IMMATURE GRANULOCYTES (test 0.5 % code = 1036) NUCLEATED RBCS (test code = 0.0 /100WBC'S 1065) PLATELET COUNT (test code = 270 K/UL 1015) ABSOLUTE NEUTROPHILS (test code 6.92 K/UL = 1066) ABSOLUTE LYMPHOCYTES (test code 1.61 K/UL = 1067) ABSOLUTE MONOCYTES (test code = 0.67 K/UL 1068) ABSOLUTE EOSINOPHILS (test code 0.17 K/UL = 1040) ABSOLUTE BASOPHILS (test code = 0.05 K/UL 1069) ABS IMMATURE GRANULOCYTES (test 0.05 K/UL code = 1020) ABS NUCLEATED RBCS (test code = 0.00 K/UL 00185) COMMENTS (test code = 1016) (NOTE) CBC W/AUTO [id number] 00:00:00 Test Item Value Reference Range Interpretation Comments WBC (test code = 1001) 9.5 K/UL RBC (test code = 1002) 4.16 M/UL HEMOGLOBIN (test code = 1003) 8.7 G/DL HEMATOCRIT (test code = 1004) 29.9 % MCV (test code = 1005) 71.9 fL MCH (test code = 1006) 20.9 PG MCHC (test code = 1007) 29.1 G/DL RDW (test code = 1038) 27.6 % NEUTROPHILS (test code = 1008) 73.1 % LYMPHOCYTES (test code = 1010) 17.0 % MONOCYTES (test code = 1011) 7.1 % EOSINOPHILS (test code = 1012) 1.8 % BASOPHILS (test code = 1013) 0.5 % IMMATURE GRANULOCYTES (test 0.5 % code = 1036) NUCLEATED RBCS (test code = 0.0 /100WBC'S 1065) PLATELET COUNT (test code = 270 K/UL 1015) ABSOLUTE NEUTROPHILS (test code 6.92 K/UL = 1066) ABSOLUTE LYMPHOCYTES (test code 1.61 K/UL = 1067) ABSOLUTE MONOCYTES (test code = 0.67 K/UL 1068) ABSOLUTE EOSINOPHILS (test code 0.17 K/UL = 1040) ABSOLUTE BASOPHILS (test code = 0.05 K/UL 1069) ABS IMMATURE GRANULOCYTES (test 0.05 K/UL code = 1020) ABS NUCLEATED RBCS (test code = 0.00 K/UL 85187) COMMENTS (test code = 1016) (NOTE) CBC W/AUTO [id number] 00:00:00 Test Item Value Reference Range Interpretation Comments WBC (test code = 1001) 9.5 K/UL RBC (test code = 1002) 4.16 M/UL HEMOGLOBIN (test code = 1003) 8.7 G/DL HEMATOCRIT (test code = 1004) 29.9 % MCV (test code = 1005) 71.9 fL MCH (test code = 1006) 20.9 PG MCHC (test code = 1007) 29.1 G/DL RDW (test code = 1038) 27.6 % NEUTROPHILS (test code = 1008) 73.1 % LYMPHOCYTES (test code = 1010) 17.0 % MONOCYTES (test code = 1011) 7.1 % EOSINOPHILS (test code = 1012) 1.8 % BASOPHILS (test code = 1013) 0.5 % IMMATURE GRANULOCYTES (test 0.5 % code = 1036) NUCLEATED RBCS (test code = 0.0 /100WBC'S 1065) PLATELET COUNT (test code = 270 K/UL 1015) ABSOLUTE NEUTROPHILS (test code 6.92 K/UL = 1066) ABSOLUTE LYMPHOCYTES (test code 1.61 K/UL = 1067) ABSOLUTE MONOCYTES (test code = 0.67 K/UL 1068) ABSOLUTE EOSINOPHILS (test code 0.17 K/UL = 1040) ABSOLUTE BASOPHILS (test code = 0.05 K/UL 1069) ABS IMMATURE GRANULOCYTES (test 0.05 K/UL code = 1020) ABS NUCLEATED RBCS (test code = 0.00 K/UL 20161) COMMENTS (test code = 1016) (NOTE) CBC W/AUTO [id number] 00:00:00 Test Item Value Reference Range Interpretation Comments WBC (test code = 1001) 9.5 K/UL RBC (test code = 1002) 4.16 M/UL HEMOGLOBIN (test code = 1003) 8.7 G/DL HEMATOCRIT (test code = 1004) 29.9 % MCV (test code = 1005) 71.9 fL MCH (test code = 1006) 20.9 PG MCHC (test code = 1007) 29.1 G/DL RDW (test code = 1038) 27.6 % NEUTROPHILS (test code = 1008) 73.1 % LYMPHOCYTES (test code = 1010) 17.0 % MONOCYTES (test code = 1011) 7.1 % EOSINOPHILS (test code = 1012) 1.8 % BASOPHILS (test code = 1013) 0.5 % IMMATURE GRANULOCYTES (test 0.5 % code = 1036) NUCLEATED RBCS (test code = 0.0 /100WBC'S 1065) PLATELET COUNT (test code = 270 K/UL 1015) ABSOLUTE NEUTROPHILS (test code 6.92 K/UL = 1066) ABSOLUTE LYMPHOCYTES (test code 1.61 K/UL = 1067) ABSOLUTE MONOCYTES (test code = 0.67 K/UL 1068) ABSOLUTE EOSINOPHILS (test code 0.17 K/UL = 1040) ABSOLUTE BASOPHILS (test code = 0.05 K/UL 1069) ABS IMMATURE GRANULOCYTES (test 0.05 K/UL code = 1020) ABS NUCLEATED RBCS (test code = 0.00 K/UL 47861) COMMENTS (test code = 1016) (NOTE) HIV AB/AG COMBO RFLX [id number] 00:00:00 Test Item Value Reference Range Interpretation Comments HIV 1/2 4TH GEN, RFLX CONF (test NON-REACTIVE code = 3514) HIV AB/AG COMBO RFLX [id number] 00:00:00 Test Item Value Reference Range Interpretation Comments HIV 1/2 4TH GEN, RFLX CONF (test NON-REACTIVE code = 3514) ACUTE HEPATITIS [id number] 00:00:00 Test Item Value Reference Range Interpretation Comments HEPATITIS A IgM (test code = NON-REACTIVE 47170) HEPATITIS B CORE IgM (test code NON-REACTIVE = 4644) HEPATITIS B SURF AG (test code = NON-REACTIVE 2739) HEPATITIS C ANTIBODY (test code NON-REACTIVE = 4675) INTERPRETATION HEPATITIS A: (NOTE) (test code = 2552) INTERPRETATION HEPATITIS B: (NOTE) (test code = 74032) INTERPRETATION HEPATITIS C: (NOTE) (test code = 24887) ACUTE HEPATITIS [id number] 00:00:00 Test Item Value Reference Range Interpretation Comments HEPATITIS A IgM (test code = NON-REACTIVE 74833) HEPATITIS B CORE IgM (test code NON-REACTIVE = 4644) HEPATITIS B SURF AG (test code = NON-REACTIVE 2739) HEPATITIS C ANTIBODY (test code NON-REACTIVE = 4675) INTERPRETATION HEPATITIS A: (NOTE) (test code = 2552) INTERPRETATION HEPATITIS B: (NOTE) (test code = 47912) INTERPRETATION HEPATITIS C: (NOTE) (test code = 83046) GC AND CHLAMYDIA, AMPLIFIED, [id number] 00:00:00 Test Item Value Reference Range Interpretation Comments GONORRHEA, NAAT (test code = 43456) NEGATIVE CHLAMYDIA, NAAT (test code = 00154) NEGATIVE GC AND CHLAMYDIA, AMPLIFIED, [id number] 00:00:00 Test Item Value Reference Range Interpretation Comments GONORRHEA, NAAT (test code = 12640) NEGATIVE CHLAMYDIA, NAAT (test code = 04644) NEGATIVE [id number] 00:00:00 Test Item Value Reference Range Interpretation Comments RPR RESULT (test code = NON-REACTIVE 3501) RPR TITER (test code = 3500) NOT INDIC. TITER [id number] 00:00:00 Test Item Value Reference Range Interpretation Comments RPR RESULT (test code = NON-REACTIVE 3501) RPR TITER (test code = 3500) NOT INDIC. TITER [id number] 00:00:00 Test Item Value Reference Range Interpretation Comments RPR RESULT (test code = NON-REACTIVE 3501) RPR TITER (test code = 3500) NOT INDIC. TITER HIV AB/AG COMBO RFLX [id number] 00:00:00 Test Item Value Reference Range Interpretation Comments HIV 1/2 4TH GEN, RFLX CONF (test NON-REACTIVE code = 3514) CBC W/AUTO [id number] 00:00:00 Test Item Value Reference Range Interpretation Comments WBC (test code = 1001) 9.5 K/UL RBC (test code = 1002) 4.16 M/UL HEMOGLOBIN (test code = 1003) 8.7 G/DL HEMATOCRIT (test code = 1004) 29.9 % MCV (test code = 1005) 71.9 fL MCH (test code = 1006) 20.9 PG MCHC (test code = 1007) 29.1 G/DL RDW (test code = 1038) 27.6 % NEUTROPHILS (test code = 1008) 73.1 % LYMPHOCYTES (test code = 1010) 17.0 % MONOCYTES (test code = 1011) 7.1 % EOSINOPHILS (test code = 1012) 1.8 % BASOPHILS (test code = 1013) 0.5 % IMMATURE GRANULOCYTES (test 0.5 % code = 1036) NUCLEATED RBCS (test code = 0.0 /100WBC'S 1065) PLATELET COUNT (test code = 270 K/UL 1015) ABSOLUTE NEUTROPHILS (test code 6.92 K/UL = 1066) ABSOLUTE LYMPHOCYTES (test code 1.61 K/UL = 1067) ABSOLUTE MONOCYTES (test code = 0.67 K/UL 1068) ABSOLUTE EOSINOPHILS (test code 0.17 K/UL = 1040) ABSOLUTE BASOPHILS (test code = 0.05 K/UL 1069) ABS IMMATURE GRANULOCYTES (test 0.05 K/UL code = 1020) ABS NUCLEATED RBCS (test code = 0.00 K/UL 84070) COMMENTS (test code = 1016) (NOTE) CBC W/AUTO [id number] 00:00:00 Test Item Value Reference Range Interpretation Comments WBC (test code = 1001) 9.5 K/UL RBC (test code = 1002) 4.16 M/UL HEMOGLOBIN (test code = 1003) 8.7 G/DL HEMATOCRIT (test code = 1004) 29.9 % MCV (test code = 1005) 71.9 fL MCH (test code = 1006) 20.9 PG MCHC (test code = 1007) 29.1 G/DL RDW (test code = 1038) 27.6 % NEUTROPHILS (test code = 1008) 73.1 % LYMPHOCYTES (test code = 1010) 17.0 % MONOCYTES (test code = 1011) 7.1 % EOSINOPHILS (test code = 1012) 1.8 % BASOPHILS (test code = 1013) 0.5 % IMMATURE GRANULOCYTES (test 0.5 % code = 1036) NUCLEATED RBCS (test code = 0.0 /100WBC'S 1065) PLATELET COUNT (test code = 270 K/UL 1015) ABSOLUTE NEUTROPHILS (test code 6.92 K/UL = 1066) ABSOLUTE LYMPHOCYTES (test code 1.61 K/UL = 1067) ABSOLUTE MONOCYTES (test code = 0.67 K/UL 1068) ABSOLUTE EOSINOPHILS (test code 0.17 K/UL = 1040) ABSOLUTE BASOPHILS (test code = 0.05 K/UL 1069) ABS IMMATURE GRANULOCYTES (test 0.05 K/UL code = 1020) ABS NUCLEATED RBCS (test code = 0.00 K/UL 18361) COMMENTS (test code = 1016) (NOTE) CBC W/AUTO [id number] 00:00:00 Test Item Value Reference Range Interpretation Comments WBC (test code = 1001) 9.5 K/UL RBC (test code = 1002) 4.16 M/UL HEMOGLOBIN (test code = 1003) 8.7 G/DL HEMATOCRIT (test code = 1004) 29.9 % MCV (test code = 1005) 71.9 fL MCH (test code = 1006) 20.9 PG MCHC (test code = 1007) 29.1 G/DL RDW (test code = 1038) 27.6 % NEUTROPHILS (test code = 1008) 73.1 % LYMPHOCYTES (test code = 1010) 17.0 % MONOCYTES (test code = 1011) 7.1 % EOSINOPHILS (test code = 1012) 1.8 % BASOPHILS (test code = 1013) 0.5 % IMMATURE GRANULOCYTES (test 0.5 % code = 1036) NUCLEATED RBCS (test code = 0.0 /100WBC'S 1065) PLATELET COUNT (test code = 270 K/UL 1015) ABSOLUTE NEUTROPHILS (test code 6.92 K/UL = 1066) ABSOLUTE LYMPHOCYTES (test code 1.61 K/UL = 1067) ABSOLUTE MONOCYTES (test code = 0.67 K/UL 1068) ABSOLUTE EOSINOPHILS (test code 0.17 K/UL = 1040) ABSOLUTE BASOPHILS (test code = 0.05 K/UL 1069) ABS IMMATURE GRANULOCYTES (test 0.05 K/UL code = 1020) ABS NUCLEATED RBCS (test code = 0.00 K/UL 21222) COMMENTS (test code = 1016) (NOTE) HIV AB/AG COMBO RFLX [id number] 00:00:00 Test Item Value Reference Range Interpretation Comments HIV 1/2 4TH GEN, RFLX CONF (test NON-REACTIVE code = 3514) ACUTE HEPATITIS [id number] 00:00:00 Test Item Value Reference Range Interpretation Comments HEPATITIS A IgM (test code = NON-REACTIVE 91095) HEPATITIS B CORE IgM (test code NON-REACTIVE = 4644) HEPATITIS B SURF AG (test code = NON-REACTIVE 2739) HEPATITIS C ANTIBODY (test code NON-REACTIVE = 4675) INTERPRETATION HEPATITIS A: (NOTE) (test code = 2552) INTERPRETATION HEPATITIS B: (NOTE) (test code = 02517) INTERPRETATION HEPATITIS C: (NOTE) (test code = 49832) HIV AB/AG COMBO RFLX [id number] 00:00:00 Test Item Value Reference Range Interpretation Comments HIV 1/2 4TH GEN, RFLX CONF (test NON-REACTIVE code = 3514) ACUTE HEPATITIS [id number] 00:00:00 Test Item Value Reference Range Interpretation Comments HEPATITIS A IgM (test code = NON-REACTIVE 49717) HEPATITIS B CORE IgM (test code NON-REACTIVE = 4644) HEPATITIS B SURF AG (test code = NON-REACTIVE 2739) HEPATITIS C ANTIBODY (test code NON-REACTIVE = 4675) INTERPRETATION HEPATITIS A: (NOTE) (test code = 2552) INTERPRETATION HEPATITIS B: (NOTE) (test code = 97660) INTERPRETATION HEPATITIS C: (NOTE) (test code = 42281) ACUTE HEPATITIS [id number] 00:00:00 Test Item Value Reference Range Interpretation Comments HEPATITIS A IgM (test code = NON-REACTIVE 44123) HEPATITIS B CORE IgM (test code NON-REACTIVE = 4644) HEPATITIS B SURF AG (test code = NON-REACTIVE 2419) HEPATITIS C ANTIBODY (test code NON-REACTIVE = 4675) INTERPRETATION HEPATITIS A: (NOTE) (test code = 2552) INTERPRETATION HEPATITIS B: (NOTE) (test code = 04879) INTERPRETATION HEPATITIS C: (NOTE) (test code = 05859) GC AND CHLAMYDIA, AMPLIFIED, [id number] 00:00:00 Test Item Value Reference Range Interpretation Comments GONORRHEA, NAAT (test code = 91142) NEGATIVE CHLAMYDIA, NAAT (test code = 45320) NEGATIVE GC AND CHLAMYDIA, AMPLIFIED, [id number] 00:00:00 Test Item Value Reference Range Interpretation Comments GONORRHEA, NAAT (test code = 05798) NEGATIVE CHLAMYDIA, NAAT (test code = 04265) NEGATIVE GC AND CHLAMYDIA, AMPLIFIED, [id number] 00:00:00 Test Item Value Reference Range Interpretation Comments GONORRHEA, NAAT (test code = 71454) NEGATIVE CHLAMYDIA, NAAT (test code = 00375) NEGATIVE [id number] 00:00:00 Test Item Value Reference Range Interpretation Comments RPR RESULT (test code = NON-REACTIVE 3501) RPR TITER (test code = 3500) NOT INDIC. TITER [id number] 00:00:00 Test Item Value Reference Range Interpretation Comments RPR RESULT (test code = NON-REACTIVE 3501) RPR TITER (test code = 3500) NOT INDIC. TITER [id number] 00:00:00 Test Item Value Reference Range Interpretation Comments RPR RESULT (test code = NON-REACTIVE 3501) RPR TITER (test code = 3500) NOT INDIC. TITER [id number] 00:00:00 Test Item Value Reference Range Interpretation Comments RPR RESULT (test code = NON-REACTIVE 3501) RPR TITER (test code = 3500) NOT INDIC. TITER [id number] 00:00:00 Test Item Value Reference Range Interpretation Comments RPR RESULT (test code = NON-REACTIVE 3501) RPR TITER (test code = 3500) NOT INDIC. TITER CBC W/AUTO [id number] 00:00:00 Test Item Value Reference Range Interpretation Comments WBC (test code = 1001) 14.2 K/UL RBC (test code = 1002) 3.86 M/UL HEMOGLOBIN (test code = 1003) 7.9 G/DL HEMATOCRIT (test code = 1004) 27.1 % MCV (test code = 1005) 70.2 fL MCH (test code = 1006) 20.5 PG MCHC (test code = 1007) 29.2 G/DL RDW (test code = 1038) 24.5 % NEUTROPHILS (test code = 1008) 75.8 % LYMPHOCYTES (test code = 1010) 14.7 % MONOCYTES (test code = 1011) 5.2 % EOSINOPHILS (test code = 1012) 4.3 % BASOPHILS (test code = 1013) 0.0 % NUCLEATED RBC'S (test code = 3 /100WBC'S 1065) PLATELET COUNT (test code = 1015) 807 K/UL COMMENTS (test code = 1016) (NOTE) CBC W/AUTO [id number] 00:00:00 Test Item Value Reference Range Interpretation Comments WBC (test code = 1001) 14.2 K/UL RBC (test code = 1002) 3.86 M/UL HEMOGLOBIN (test code = 1003) 7.9 G/DL HEMATOCRIT (test code = 1004) 27.1 % MCV (test code = 1005) 70.2 fL MCH (test code = 1006) 20.5 PG MCHC (test code = 1007) 29.2 G/DL RDW (test code = 1038) 24.5 % NEUTROPHILS (test code = 1008) 75.8 % LYMPHOCYTES (test code = 1010) 14.7 % MONOCYTES (test code = 1011) 5.2 % EOSINOPHILS (test code = 1012) 4.3 % BASOPHILS (test code = 1013) 0.0 % NUCLEATED RBC'S (test code = 3 /100WBC'S 1065) PLATELET COUNT (test code = 1015) 807 K/UL COMMENTS (test code = 1016) (NOTE) CBC W/AUTO [id number] 00:00:00 Test Item Value Reference Range Interpretation Comments WBC (test code = 1001) 14.2 K/UL RBC (test code = 1002) 3.86 M/UL HEMOGLOBIN (test code = 1003) 7.9 G/DL HEMATOCRIT (test code = 1004) 27.1 % MCV (test code = 1005) 70.2 fL MCH (test code = 1006) 20.5 PG MCHC (test code = 1007) 29.2 G/DL RDW (test code = 1038) 24.5 % NEUTROPHILS (test code = 1008) 75.8 % LYMPHOCYTES (test code = 1010) 14.7 % MONOCYTES (test code = 1011) 5.2 % EOSINOPHILS (test code = 1012) 4.3 % BASOPHILS (test code = 1013) 0.0 % NUCLEATED RBC'S (test code = 3 100WBC'S 1065) PLATELET COUNT (test code = 1015) 807 K/UL COMMENTS (test code = 1016) (NOTE) HEMOGLOBIN [id number] 00:00:00 Test Item Value Reference Range Interpretation Comments HEMOGLOBIN A1c (test code = 57628) 5.4 % HEMOGLOBIN [id number] 00:00:00 Test Item Value Reference Range Interpretation Comments HEMOGLOBIN A1c (test code = 48428) 5.4 % HEMOGLOBIN [id number] 00:00:00 Test Item Value Reference Range Interpretation Comments HEMOGLOBIN A1c (test code = 91104) 5.4 % COMPREHENSIVE METABOLIC [id number] 00:00:00 Test Item Value Reference Range Interpretation Comments GLUCOSE (test code = 2217) 100 MG/DL BUN (test code = 2208) 9 MG/DL CREATININE (test code = 2214) 0.68 MG/DL eGFR AMER. (test code 122 ML/MIN/1.73 = 81435) eGFR NON- AMER. (test 105 ML/MIN/1.73 code = 81221) CALC BUN/CREAT (test code = 13 RATIO 2235) SODIUM (test code = 2231) 141 MEQ/L POTASSIUM (test code = 2228) 4.4 MEQ/L CHLORIDE (test code = 2215) 106 MEQ/L CARBON DIOXIDE (test code = 25 MEQ/L 220) CALCIUM (test code = 2209) 9.3 MG/DL PROTEIN, TOTAL (test code = 6.6 G/DL 2228) ALBUMIN (test code = 2201) 4.3 G/DL CALC GLOBULIN (test code = 2.3 G/DL 2240) CALC A/G RATIO (test code = 1.9 RATIO 2234) BILIRUBIN, TOTAL (test code = 0.2 MG/DL 2206) ALKALINE PHOSPHATASE (test 61 U/L code = 2204) AST (test code = 2218) 18 U/L ALT (test code = 2219) 15 U/L COMPREHENSIVE METABOLIC [id number] 00:00:00 Test Item Value Reference Range Interpretation Comments GLUCOSE (test code = 2217) 100 MG/DL BUN (test code = 2208) 9 MG/DL CREATININE (test code = 2214) 0.68 MG/DL eGFR AMER. (test code 122 ML/MIN/1.73 = 50665) eGFR NON- AMER. (test 105 ML/MIN/1.73 code = 03690) CALC BUN/CREAT (test code = 13 RATIO 2235) SODIUM (test code = 2231) 141 MEQ/L POTASSIUM (test code = 2228) 4.4 MEQ/L CHLORIDE (test code = 2215) 106 MEQ/L CARBON DIOXIDE (test code = 25 MEQ/L 2205) CALCIUM (test code = 2209) 9.3 MG/DL PROTEIN, TOTAL (test code = 6.6 G/DL 2228) ALBUMIN (test code = 2201) 4.3 G/DL CALC GLOBULIN (test code = 2.3 G/DL 2240) CALC A/G RATIO (test code = 1.9 RATIO 2234) BILIRUBIN, TOTAL (test code = 0.2 MG/DL 2206) ALKALINE PHOSPHATASE (test 61 U/L code = 2204) AST (test code = 2218) 18 U/L ALT (test code = 2219) 15 U/L [id number] 00:00:00 Test Item Value Reference Range Interpretation Comments TESTOSTERONE (test code = 2830) <12 NG/DL [id number] 00:00:00 Test Item Value Reference Range Interpretation Comments TESTOSTERONE (test code = 2830) <12 NG/DL FSH + LH [id number] 00:00:00 Test Item Value Reference Range Interpretation Comments FOLLICLE STIM HORMONE (test code = 10.6 IU/L 2700) LUTEINIZING HORMONE (test code = 33.7 IU/L 2776) [facility] + LH [id number] 00:00:00 Test Item Value Reference Range Interpretation Comments FOLLICLE STIM HORMONE (test code = 10.6 IU/L 2700) LUTEINIZING HORMONE (test code = 33.7 IU/L 2776) [id number] 00:00:00 Test Item Value Reference Range Interpretation Comments PROLACTIN (test code = 2800) 26.8 NG/ML [id number] 00:00:00 Test Item Value Reference Range Interpretation Comments PROLACTIN (test code = 2800) 26.8 NG/ML [id number] 00:00:00 Test Item Value Reference Range Interpretation Comments ESTRADIOL (test code = 2505) 269.0 PG/ML [id number] 00:00:00 Test Item Value Reference Range Interpretation Comments ESTRADIOL (test code = 2505) 269.0 PG/ML [id number] 00:00:00 Test Item Value Reference Range Interpretation Comments ESTRADIOL (test code = 2505) 269.0 PG/ML IRON BINDING CAPACITY AND IRON AND % [id number] 00:00:00 Test Item Value Reference Range Interpretation Comments IRON, SERUM (test code = 2221) 13 UG/DL UNSATURATED IBC (test code = ) 454 UG/DL CALC TOTAL IBC (test code = 7) 467 UG/DL CALC % IRON SAT (test code = 9) 3 % IRON BINDING CAPACITY AND IRON AND % [id number] 00:00:00 Test Item Value Reference Range Interpretation Comments IRON, SERUM (test code = 2221) 13 UG/DL UNSATURATED IBC (test code = 26564) 454 UG/DL CALC TOTAL IBC (test code = 7) 467 UG/DL CALC % IRON SAT (test code = 9) 3 % [id number] 00:00:00 Test Item Value Reference Range Interpretation Comments FERRITIN (test code = 5) 12 NG/ML [id number] 00:00:00 Test Item Value Reference Range Interpretation Comments FERRITIN (test code = 5) 12 NG/ML [id number] 00:00:00 Test Item Value Reference Range Interpretation Comments TRANSFERRIN (test code = 4936) 391 MG/DL [id number] 00:00:00 Test Item Value Reference Range Interpretation Comments TRANSFERRIN (test code = 4936) 391 MG/DL CBC W/AUTO [id number] 00:00:00 Test Item Value Reference Range Interpretation Comments WBC (test code = 1001) 14.2 K/UL RBC (test code = 1002) 3.86 M/UL HEMOGLOBIN (test code = 1003) 7.9 G/DL HEMATOCRIT (test code = 1004) 27.1 % MCV (test code = 1005) 70.2 fL MCH (test code = 1006) 20.5 PG MCHC (test code = 1007) 29.2 G/DL RDW (test code = 1038) 24.5 % NEUTROPHILS (test code = 1008) 75.8 % LYMPHOCYTES (test code = 1010) 14.7 % MONOCYTES (test code = 1011) 5.2 % EOSINOPHILS (test code = 1012) 4.3 % BASOPHILS (test code = 1013) 0.0 % NUCLEATED RBC'S (test code = 3 /100WBC'S 1065) PLATELET COUNT (test code = 1015) 807 K/UL COMMENTS (test code = 1016) (NOTE) CBC W/AUTO [id number] 00:00:00 Test Item Value Reference Range Interpretation Comments WBC (test code = 1001) 14.2 K/UL RBC (test code = 1002) 3.86 M/UL HEMOGLOBIN (test code = 1003) 7.9 G/DL HEMATOCRIT (test code = 1004) 27.1 % MCV (test code = 1005) 70.2 fL MCH (test code = 1006) 20.5 PG MCHC (test code = 1007) 29.2 G/DL RDW (test code = 1038) 24.5 % NEUTROPHILS (test code = 1008) 75.8 % LYMPHOCYTES (test code = 1010) 14.7 % MONOCYTES (test code = 1011) 5.2 % EOSINOPHILS (test code = 1012) 4.3 % BASOPHILS (test code = 1013) 0.0 % NUCLEATED RBC'S (test code = 3 /100WBC'S 1065) PLATELET COUNT (test code = 1015) 807 K/UL COMMENTS (test code = 1016) (NOTE) CBC W/AUTO [id number] 00:00:00 Test Item Value Reference Range Interpretation Comments WBC (test code = 1001) 14.2 K/UL RBC (test code = 1002) 3.86 M/UL HEMOGLOBIN (test code = 1003) 7.9 G/DL HEMATOCRIT (test code = 1004) 27.1 % MCV (test code = 1005) 70.2 fL MCH (test code = 1006) 20.5 PG MCHC (test code = 1007) 29.2 G/DL RDW (test code = 1038) 24.5 % NEUTROPHILS (test code = 1008) 75.8 % LYMPHOCYTES (test code = 1010) 14.7 % MONOCYTES (test code = 1011) 5.2 % EOSINOPHILS (test code = 1012) 4.3 % BASOPHILS (test code = 1013) 0.0 % NUCLEATED RBC'S (test code = 3 /100WBC'S 1065) PLATELET COUNT (test code = 1015) 807 K/UL COMMENTS (test code = 1016) (NOTE) CBC W/AUTO [id number] 00:00:00 Test Item Value Reference Range Interpretation Comments WBC (test code = 1001) 14.2 K/UL RBC (test code = 1002) 3.86 M/UL HEMOGLOBIN (test code = 1003) 7.9 G/DL HEMATOCRIT (test code = 1004) 27.1 % MCV (test code = 1005) 70.2 fL MCH (test code = 1006) 20.5 PG MCHC (test code = 1007) 29.2 G/DL RDW (test code = 1038) 24.5 % NEUTROPHILS (test code = 1008) 75.8 % LYMPHOCYTES (test code = 1010) 14.7 % MONOCYTES (test code = 1011) 5.2 % EOSINOPHILS (test code = 1012) 4.3 % BASOPHILS (test code = 1013) 0.0 % NUCLEATED RBC'S (test code = 3 /100WBC'S 1065) PLATELET COUNT (test code = 1015) 807 K/UL COMMENTS (test code = 1016) (NOTE) HEMOGLOBIN [id number] 00:00:00 Test Item Value Reference Range Interpretation Comments HEMOGLOBIN A1c (test code = 01481) 5.4 % HEMOGLOBIN [id number] 00:00:00 Test Item Value Reference Range Interpretation Comments HEMOGLOBIN A1c (test code = 79479) 5.4 % CBC W/AUTO [id number] 00:00:00 Test Item Value Reference Range Interpretation Comments WBC (test code = 1001) 14.2 K/UL RBC (test code = 1002) 3.86 M/UL HEMOGLOBIN (test code = 1003) 7.9 G/DL HEMATOCRIT (test code = 1004) 27.1 % MCV (test code = 1005) 70.2 fL MCH (test code = 1006) 20.5 PG MCHC (test code = 1007) 29.2 G/DL RDW (test code = 1038) 24.5 % NEUTROPHILS (test code = 1008) 75.8 % LYMPHOCYTES (test code = 1010) 14.7 % MONOCYTES (test code = 1011) 5.2 % EOSINOPHILS (test code = 1012) 4.3 % BASOPHILS (test code = 1013) 0.0 % NUCLEATED RBC'S (test code = 3 /100WBC'S 1065) PLATELET COUNT (test code = 1015) 807 K/UL COMMENTS (test code = 1016) (NOTE) HEMOGLOBIN [id number] 00:00:00 Test Item Value Reference Range Interpretation Comments HEMOGLOBIN A1c (test code = 77523) 5.4 % HEMOGLOBIN [id number] 00:00:00 Test Item Value Reference Range Interpretation Comments HEMOGLOBIN A1c (test code = 00169) 5.4 % COMPREHENSIVE METABOLIC [id number] 00:00:00 Test Item Value Reference Range Interpretation Comments GLUCOSE (test code = 2217) 100 MG/DL BUN (test code = 2208) 9 MG/DL CREATININE (test code = 2214) 0.68 MG/DL eGFR AMER. (test code 122 ML/MIN/1.73 = 75141) eGFR NON- AMER. (test 105 ML/MIN/1.73 code = 17947) CALC BUN/CREAT (test code = 13 RATIO 2235) SODIUM (test code = 2231) 141 MEQ/L POTASSIUM (test code = 2228) 4.4 MEQ/L CHLORIDE (test code = 2215) 106 MEQ/L CARBON DIOXIDE (test code = 25 MEQ/L 2205) CALCIUM (test code = 2209) 9.3 MG/DL PROTEIN, TOTAL (test code = 6.6 G/DL 2228) ALBUMIN (test code = 2201) 4.3 G/DL CALC GLOBULIN (test code = 2.3 G/DL 2240) CALC A/G RATIO (test code = 1.9 RATIO 2234) BILIRUBIN, TOTAL (test code = 0.2 MG/DL 2207) ALKALINE PHOSPHATASE (test 61 U/L code = 2204) AST (test code = 2218) 18 U/L ALT (test code = 2219) 15 U/L COMPREHENSIVE METABOLIC [id number] 00:00:00 Test Item Value Reference Range Interpretation Comments GLUCOSE (test code = 2217) 100 MG/DL BUN (test code = 2208) 9 MG/DL CREATININE (test code = 2214) 0.68 MG/DL eGFR AMER. (test code 122 ML/MIN/1.73 = 73036) eGFR NON- AMER. (test 105 ML/MIN/1.73 code = 21636) CALC BUN/CREAT (test code = 13 RATIO 2235) SODIUM (test code = 2231) 141 MEQ/L POTASSIUM (test code = 2228) 4.4 MEQ/L CHLORIDE (test code = 2215) 106 MEQ/L CARBON DIOXIDE (test code = 25 MEQ/L 2206) CALCIUM (test code = 2209) 9.3 MG/DL PROTEIN, TOTAL (test code = 6.6 G/DL 2229) ALBUMIN (test code = 2201) 4.3 G/DL CALC GLOBULIN (test code = 2.3 G/DL 2240) CALC A/G RATIO (test code = 1.9 RATIO 2234) BILIRUBIN, TOTAL (test code = 0.2 MG/DL 2207) ALKALINE PHOSPHATASE (test 61 U/L code = 2204) AST (test code = 2218) 18 U/L ALT (test code = 2219) 15 U/L [id number] 00:00:00 Test Item Value Reference Range Interpretation Comments TESTOSTERONE (test code = 2830) <12 NG/DL [id number] 00:00:00 Test Item Value Reference Range Interpretation Comments TESTOSTERONE (test code = 2830) <12 NG/DL FSH + LH [id number] 00:00:00 Test Item Value Reference Range Interpretation Comments FOLLICLE STIM HORMONE (test code = 10.6 IU/L 2700) LUTEINIZING HORMONE (test code = 33.7 IU/L 2776) FSH + LH [id number] 00:00:00 Test Item Value Reference Range Interpretation Comments FOLLICLE STIM HORMONE (test code = 10.6 IU/L 2700) LUTEINIZING HORMONE (test code = 33.7 IU/L 2776) [id number] 00:00:00 Test Item Value Reference Range Interpretation Comments PROLACTIN (test code = 2800) 26.8 NG/ML [id number] 00:00:00 Test Item Value Reference Range Interpretation Comments PROLACTIN (test code = 2800) 26.8 NG/ML [id number] 00:00:00 Test Item Value Reference Range Interpretation Comments ESTRADIOL (test code = 2505) 269.0 PG/ML [id number] 00:00:00 Test Item Value Reference Range Interpretation Comments ESTRADIOL (test code = 2505) 269.0 PG/ML [id number] 00:00:00 Test Item Value Reference Range Interpretation Comments ESTRADIOL (test code = 2505) 269.0 PG/ML IRON BINDING CAPACITY AND IRON AND % [id number] 00:00:00 Test Item Value Reference Range Interpretation Comments IRON, SERUM (test code = 2222) 13 UG/DL UNSATURATED IBC (test code = 07230) 454 UG/DL CALC TOTAL IBC (test code = 7) 467 UG/DL CALC % IRON SAT (test code = 9) 3 % IRON BINDING CAPACITY AND IRON AND % [id number] 00:00:00 Test Item Value Reference Range Interpretation Comments IRON, SERUM (test code = 2222) 13 UG/DL UNSATURATED IBC (test code = 08956) 454 UG/DL CALC TOTAL IBC (test code = 7) 467 UG/DL CALC % IRON SAT (test code = 2079) 3 % [id number] 00:00:00 Test Item Value Reference Range Interpretation Comments FERRITIN (test code = 2075) 12 NG/ML [id number] 00:00:00 Test Item Value Reference Range Interpretation Comments FERRITIN (test code = 2075) 12 NG/ML [id number] 00:00:00 Test Item Value Reference Range Interpretation Comments TRANSFERRIN (test code = 4936) 391 MG/DL [id number] 00:00:00 Test Item Value Reference Range Interpretation Comments TRANSFERRIN (test code = 4936) 391 MG/DL HEMOGLOBIN [id number] 00:00:00 Test Item Value Reference Range Interpretation Comments HEMOGLOBIN A1c (test code = 35038) 5.4 % CBC W/AUTO [id number] 00:00:00 Test Item Value Reference Range Interpretation Comments WBC (test code = 1001) 14.2 K/UL RBC (test code = 1002) 3.86 M/UL HEMOGLOBIN (test code = 1003) 7.9 G/DL HEMATOCRIT (test code = 1004) 27.1 % MCV (test code = 1005) 70.2 fL MCH (test code = 1006) 20.5 PG MCHC (test code = 1007) 29.2 G/DL RDW (test code = 1038) 24.5 % NEUTROPHILS (test code = 1008) 75.8 % LYMPHOCYTES (test code = 1010) 14.7 % MONOCYTES (test code = 1011) 5.2 % EOSINOPHILS (test code = 1012) 4.3 % BASOPHILS (test code = 1013) 0.0 % NUCLEATED RBC'S (test code = 3 /100WBC'S 1065) PLATELET COUNT (test code = 1015) 807 K/UL COMMENTS (test code = 1016) (NOTE) CBC W/AUTO [id number] 00:00:00 Test Item Value Reference Range Interpretation Comments WBC (test code = 1001) 14.2 K/UL RBC (test code = 1002) 3.86 M/UL HEMOGLOBIN (test code = 1003) 7.9 G/DL HEMATOCRIT (test code = 1004) 27.1 % MCV (test code = 1005) 70.2 fL MCH (test code = 1006) 20.5 PG MCHC (test code = 1007) 29.2 G/DL RDW (test code = 1038) 24.5 % NEUTROPHILS (test code = 1008) 75.8 % LYMPHOCYTES (test code = 1010) 14.7 % MONOCYTES (test code = 1011) 5.2 % EOSINOPHILS (test code = 1012) 4.3 % BASOPHILS (test code = 1013) 0.0 % NUCLEATED RBC'S (test code = 3 /100WBC'S 1065) PLATELET COUNT (test code = 1015) 807 K/UL COMMENTS (test code = 1016) (NOTE) CBC W/AUTO [id number] 00:00:00 Test Item Value Reference Range Interpretation Comments WBC (test code = 1001) 14.2 K/UL RBC (test code = 1002) 3.86 M/UL HEMOGLOBIN (test code = 1003) 7.9 G/DL HEMATOCRIT (test code = 1004) 27.1 % MCV (test code = 1005) 70.2 fL MCH (test code = 1006) 20.5 PG MCHC (test code = 1007) 29.2 G/DL RDW (test code = 1038) 24.5 % NEUTROPHILS (test code = 1008) 75.8 % LYMPHOCYTES (test code = 1010) 14.7 % MONOCYTES (test code = 1011) 5.2 % EOSINOPHILS (test code = 1012) 4.3 % BASOPHILS (test code = 1013) 0.0 % NUCLEATED RBC'S (test code = 3 /100WBC'S 1065) PLATELET COUNT (test code = 1015) 807 K/UL COMMENTS (test code = 1016) (NOTE) HEMOGLOBIN [id number] 00:00:00 Test Item Value Reference Range Interpretation Comments HEMOGLOBIN A1c (test code = 07643) 5.4 % HEMOGLOBIN [id number] 00:00:00 Test Item Value Reference Range Interpretation Comments HEMOGLOBIN A1c (test code = 12557) 5.4 % HEMOGLOBIN [id number] 00:00:00 Test Item Value Reference Range Interpretation Comments HEMOGLOBIN A1c (test code = 61463) 5.4 % COMPREHENSIVE METABOLIC [id number] 00:00:00 Test Item Value Reference Range Interpretation Comments GLUCOSE (test code = 2217) 100 MG/DL BUN (test code = 2208) 9 MG/DL CREATININE (test code = 2214) 0.68 MG/DL eGFR AMER. (test code 122 ML/MIN/1.73 = 69589) eGFR NON- AMER. (test 105 ML/MIN/1.73 code = 71954) CALC BUN/CREAT (test code = 13 RATIO 2235) SODIUM (test code = 2231) 141 MEQ/L POTASSIUM (test code = 2228) 4.4 MEQ/L CHLORIDE (test code = 2215) 106 MEQ/L CARBON DIOXIDE (test code = 25 MEQ/L 2205) CALCIUM (test code = 2209) 9.3 MG/DL PROTEIN, TOTAL (test code = 6.6 G/DL 2228) ALBUMIN (test code = 2201) 4.3 G/DL CALC GLOBULIN (test code = 2.3 G/DL 2240) CALC A/G RATIO (test code = 1.9 RATIO 2234) BILIRUBIN, TOTAL (test code = 0.2 MG/DL 2206) ALKALINE PHOSPHATASE (test 61 U/L code = 2204) AST (test code = 2218) 18 U/L ALT (test code = 2219) 15 U/L COMPREHENSIVE METABOLIC [id number] 00:00:00 Test Item Value Reference Range Interpretation Comments GLUCOSE (test code = 2217) 100 MG/DL BUN (test code = 2208) 9 MG/DL CREATININE (test code = 2214) 0.68 MG/DL eGFR AMER. (test code 122 ML/MIN/1.73 = 24908) eGFR NON- AMER. (test 105 ML/MIN/1.73 code = 89543) CALC BUN/CREAT (test code = 13 RATIO 2235) SODIUM (test code = 2231) 141 MEQ/L POTASSIUM (test code = 2228) 4.4 MEQ/L CHLORIDE (test code = 2215) 106 MEQ/L CARBON DIOXIDE (test code = 25 MEQ/L 2205) CALCIUM (test code = 2209) 9.3 MG/DL PROTEIN, TOTAL (test code = 6.6 G/DL 2228) ALBUMIN (test code = 2201) 4.3 G/DL CALC GLOBULIN (test code = 2.3 G/DL 2240) CALC A/G RATIO (test code = 1.9 RATIO 2234) BILIRUBIN, TOTAL (test code = 0.2 MG/DL 2206) ALKALINE PHOSPHATASE (test 61 U/L code = 2204) AST (test code = 2218) 18 U/L ALT (test code = 2219) 15 U/L COMPREHENSIVE METABOLIC [id number] 00:00:00 Test Item Value Reference Range Interpretation Comments GLUCOSE (test code = 2217) 100 MG/DL BUN (test code = 2208) 9 MG/DL CREATININE (test code = 2214) 0.68 MG/DL eGFR AMER. (test code 122 ML/MIN/1.73 = 48721) eGFR NON- AMER. (test 105 ML/MIN/1.73 code = 83596) CALC BUN/CREAT (test code = 13 RATIO 2235) SODIUM (test code = 2231) 141 MEQ/L POTASSIUM (test code = 2228) 4.4 MEQ/L CHLORIDE (test code = 2215) 106 MEQ/L CARBON DIOXIDE (test code = 25 MEQ/L 2205) CALCIUM (test code = 2209) 9.3 MG/DL PROTEIN, TOTAL (test code = 6.6 G/DL 2228) ALBUMIN (test code = 2201) 4.3 G/DL CALC GLOBULIN (test code = 2.3 G/DL 224) CALC A/G RATIO (test code = 1.9 RATIO 2233) BILIRUBIN, TOTAL (test code = 0.2 MG/DL 2206) ALKALINE PHOSPHATASE (test 61 U/L code = 220) AST (test code = 2218) 18 U/L ALT (test code = 2219) 15 U/L [id number] 00:00:00 Test Item Value Reference Range Interpretation Comments TESTOSTERONE (test code = 2830) <12 NG/DL [id number] 00:00:00 Test Item Value Reference Range Interpretation Comments TESTOSTERONE (test code = 2830) <12 NG/DL FSH + LH [id number] 00:00:00 Test Item Value Reference Range Interpretation Comments FOLLICLE STIM HORMONE (test code = 10.6 IU/L 2700) LUTEINIZING HORMONE (test code = 33.7 IU/L 2776) FSH + LH [id number] 00:00:00 Test Item Value Reference Range Interpretation Comments FOLLICLE STIM HORMONE (test code = 10.6 IU/L 2700) LUTEINIZING HORMONE (test code = 33.7 IU/L 2776) [id number] 00:00:00 Test Item Value Reference Range Interpretation Comments PROLACTIN (test code = 2800) 26.8 NG/ML [id number] 00:00:00 Test Item Value Reference Range Interpretation Comments PROLACTIN (test code = 2800) 26.8 NG/ML [id number] 00:00:00 Test Item Value Reference Range Interpretation Comments ESTRADIOL (test code = 2505) 269.0 PG/ML [id number] 00:00:00 Test Item Value Reference Range Interpretation Comments ESTRADIOL (test code = 2505) 269.0 PG/ML [id number] 00:00:00 Test Item Value Reference Range Interpretation Comments ESTRADIOL (test code = 2505) 269.0 PG/ML IRON BINDING CAPACITY AND IRON AND % [id number] 00:00:00 Test Item Value Reference Range Interpretation Comments IRON, SERUM (test code = 2222) 13 UG/DL UNSATURATED IBC (test code = 50104) 454 UG/DL CALC TOTAL IBC (test code = 7) 467 UG/DL CALC % IRON SAT (test code = 9) 3 % IRON BINDING CAPACITY AND IRON AND % [id number] 00:00:00 Test Item Value Reference Range Interpretation Comments IRON, SERUM (test code = 2) 13 UG/DL UNSATURATED IBC (test code = 59198) 454 UG/DL CALC TOTAL IBC (test code = 7) 467 UG/DL CALC % IRON SAT (test code = 9) 3 % [id number] 00:00:00 Test Item Value Reference Range Interpretation Comments FERRITIN (test code = 5) 12 NG/ML [id number] 00:00:00 Test Item Value Reference Range Interpretation Comments FERRITIN (test code = 5) 12 NG/ML [id number] 00:00:00 Test Item Value Reference Range Interpretation Comments TRANSFERRIN (test code = 4936) 391 MG/DL [id number] 00:00:00 Test Item Value Reference Range Interpretation Comments TRANSFERRIN (test code = 4936) 391 MG/DL [id number] 00:00:00 Test Item Value Reference Range Interpretation Comments TESTOSTERONE (test code = 2830) <12 NG/DL FSH + LH [id number] 00:00:00 Test Item Value Reference Range Interpretation Comments FOLLICLE STIM HORMONE (test code = 10.6 IU/L 2700) LUTEINIZING HORMONE (test code = 33.7 IU/L 2776) [id number] 00:00:00 Test Item Value Reference Range Interpretation Comments PROLACTIN (test code = 2800) 26.8 NG/ML [id number] 00:00:00 Test Item Value Reference Range Interpretation Comments ESTRADIOL (test code = 2505) 269.0 PG/ML [id number] 00:00:00 Test Item Value Reference Range Interpretation Comments ESTRADIOL (test code = 2505) 269.0 PG/ML IRON BINDING CAPACITY AND IRON AND % [id number] 00:00:00 Test Item Value Reference Range Interpretation Comments IRON, SERUM (test code = 2222) 13 UG/DL UNSATURATED IBC (test code = 94269) 454 UG/DL CALC TOTAL IBC (test code = 2076) 467 UG/DL CALC % IRON SAT (test code = 2078) 3 % [id number] 00:00:00 Test Item Value Reference Range Interpretation Comments FERRITIN (test code = 2074) 12 NG/ML [id number] 00:00:00 Test Item Value Reference Range Interpretation Comments TRANSFERRIN (test code = 4936) 391 MG/DL [id number] 00:00:00 Test Item Value Reference Range Interpretation Comments RPR RESULT (test code = NON-REACTIVE 3501) RPR TITER (test code = 3500) NOT INDIC. TITER [id number] 00:00:00 Test Item Value Reference Range Interpretation Comments RPR RESULT (test code = NON-REACTIVE 3501) RPR TITER (test code = 3500) NOT INDIC. TITER [id number] 00:00:00 Test Item Value Reference Range Interpretation Comments RPR RESULT (test code = NON-REACTIVE 3501) RPR TITER (test code = 3500) NOT INDIC. TITER [id number] 00:00:00 Test Item Value Reference Range Interpretation Comments RPR RESULT (test code = NON-REACTIVE 3501) RPR TITER (test code = 3500) NOT INDIC. TITER [id number] 00:00:00 Test Item Value Reference Range Interpretation Comments RPR RESULT (test code = NON-REACTIVE 3501) RPR TITER (test code = 3500) NOT INDIC. TITER [id number] 00:00:00 Test Item Value Reference Range Interpretation Comments RPR RESULT (test code = NON-REACTIVE 3501) RPR TITER (test code = 3500) NOT INDIC. TITER [id number] 00:00:00 Test Item Value Reference Range Interpretation Comments RPR RESULT (test code = NON-REACTIVE 3501) RPR TITER (test code = 3500) NOT INDIC. TITER [id number] 00:00:00 Test Item Value Reference Range Interpretation Comments RPR RESULT (test code = NON-REACTIVE 3501) RPR TITER (test code = 3500) NOT INDIC. TITER [id number] 00:00:00 Test Item Value Reference Range Interpretation Comments RPR RESULT (test code = NON-REACTIVE 3501) RPR TITER (test code = 3500) NOT INDIC. TITER [id number] 00:00:00 Test Item Value Reference Range Interpretation Comments RPR RESULT (test code = NON-REACTIVE 3501) RPR TITER (test code = 3500) NOT INDIC. TITER [id number] 00:00:00 Test Item Value Reference Range Interpretation Comments RPR RESULT (test code = NON-REACTIVE 3501) RPR TITER (test code = 3500) NOT INDIC. TITER VAGINAL PATHOGENS DNA [id number] 00:00:00 Test Item Value Reference Range Interpretation Comments ROSEMARY SPECIES (test code = 69262) NEGATIVE G. VAGINALIS (test code = 12661) POSITIVE T. VAGINALIS (test code = 14358) NEGATIVE VAGINAL PATHOGENS DNA [id number] 00:00:00 Test Item Value Reference Range Interpretation Comments ROSEMARY SPECIES (test code = ) NEGATIVE G. VAGINALIS (test code = 19814) POSITIVE T. VAGINALIS (test code = 81589) NEGATIVE GC AND CHLAMYDIA, AMPLIFIED, [id number] 00:00:00 Test Item Value Reference Range Interpretation Comments GONORRHEA, NAAT (test code = 14714) NEGATIVE CHLAMYDIA, NAAT (test code = 68019) NEGATIVE GC AND CHLAMYDIA, AMPLIFIED, [id number] 00:00:00 Test Item Value Reference Range Interpretation Comments GONORRHEA, NAAT (test code = 03509) NEGATIVE CHLAMYDIA, NAAT (test code = 74882) NEGATIVE HIV AB/AG COMBO RFLX [id number] 00:00:00 Test Item Value Reference Range Interpretation Comments HIV 1/2 4TH GEN, RFLX CONF (test NON-REACTIVE code = 3514) HIV AB/AG COMBO RFLX [id number] 00:00:00 Test Item Value Reference Range Interpretation Comments HIV 1/2 4TH GEN, RFLX CONF (test NON-REACTIVE code = 3514) VAGINAL PATHOGENS DNA [id number] 00:00:00 Test Item Value Reference Range Interpretation Comments ROSEMARY SPECIES (test code = ) NEGATIVE G. VAGINALIS (test code = 16316) POSITIVE T. VAGINALIS (test code = ) NEGATIVE VAGINAL PATHOGENS DNA [id number] 00:00:00 Test Item Value Reference Range Interpretation Comments ROSEMARY SPECIES (test code = ) NEGATIVE G. VAGINALIS (test code = 76866) POSITIVE T. VAGINALIS (test code = 91680) NEGATIVE VAGINAL PATHOGENS DNA [id number] 00:00:00 Test Item Value Reference Range Interpretation Comments ROSEMARY SPECIES (test code = ) NEGATIVE G. VAGINALIS (test code = 98977) POSITIVE T. VAGINALIS (test code = 20081) NEGATIVE GC AND CHLAMYDIA, AMPLIFIED, [id number] 00:00:00 Test Item Value Reference Range Interpretation Comments GONORRHEA, NAAT (test code = 42140) NEGATIVE CHLAMYDIA, NAAT (test code = 15460) NEGATIVE GC AND CHLAMYDIA, AMPLIFIED, [id number] 00:00:00 Test Item Value Reference Range Interpretation Comments GONORRHEA, NAAT (test code = 16413) NEGATIVE CHLAMYDIA, NAAT (test code = 66538) NEGATIVE HIV AB/AG COMBO RFLX [id number] 00:00:00 Test Item Value Reference Range Interpretation Comments HIV 1/2 4TH GEN, RFLX CONF (test NON-REACTIVE code = 3514) HIV AB/AG COMBO RFLX [id number] 00:00:00 Test Item Value Reference Range Interpretation Comments HIV 1/2 4TH GEN, RFLX CONF (test NON-REACTIVE code = 3514) GC AND CHLAMYDIA, AMPLIFIED, [id number] 00:00:00 Test Item Value Reference Range Interpretation Comments GONORRHEA, NAAT (test code = 23879) NEGATIVE CHLAMYDIA, NAAT (test code = 21424) NEGATIVE HIV AB/AG COMBO RFLX [id number] 00:00:00 Test Item Value Reference Range Interpretation Comments HIV 1/2 4TH GEN, RFLX CONF (test NON-REACTIVE code = 3514) VAGINAL PATHOGENS DNA [id number] 00:00:00 Test Item Value Reference Range Interpretation Comments ROSEMARY SPECIES (test code = ) NEGATIVE G. VAGINALIS (test code = 00439) POSITIVE T. VAGINALIS (test code = 91146) NEGATIVE VAGINAL PATHOGENS DNA [id number] 00:00:00 Test Item Value Reference Range Interpretation Comments ROSEMARY SPECIES (test code = 71509) NEGATIVE G. VAGINALIS (test code = ) POSITIVE T. VAGINALIS (test code = 46152) NEGATIVE GC AND CHLAMYDIA, AMPLIFIED, [id number] 00:00:00 Test Item Value Reference Range Interpretation Comments GONORRHEA, NAAT (test code = 69782) NEGATIVE CHLAMYDIA, NAAT (test code = 47545) NEGATIVE GC AND CHLAMYDIA, AMPLIFIED, [id number] 00:00:00 Test Item Value Reference Range Interpretation Comments GONORRHEA, NAAT (test code = 28962) NEGATIVE CHLAMYDIA, NAAT (test code = 24275) NEGATIVE HIV AB/AG COMBO RFLX [id number] 00:00:00 Test Item Value Reference Range Interpretation Comments HIV 1/2 4TH GEN, RFLX CONF (test NON-REACTIVE code = 3514) HIV AB/AG COMBO RFLX [id number] 00:00:00 Test Item Value Reference Range Interpretation Comments HIV 1/2 4TH GEN, RFLX CONF (test NON-REACTIVE code = 3514) PAP TEST, THINPREP, [id number] 00:00:00 Test Item Value Reference Range Interpretation Comments SOURCE: (test code = Cervical/Endocervical 8001) SLIDES: (test code = 1 8011) LMP: (test code = 8021) 06/16/20 SPECIMEN ADEQUACY: (test (NOTE) code = 92787) INTERPRETATION: (test NILM/NO EPITH. code = 60372) ABNORMALITY;SEE BELOW DRAMATIC DIRECTOR: (test VANESSA Skelton code = 8101) AMY HUBER(ASCP) LOCATION: (test code = (NOTE) 89319) CPT: (test code = 8140) (NOTE) PAP TEST, THINPREP, [id number] 00:00:00 Test Item Value Reference Range Interpretation Comments SOURCE: (test code = Cervical/Endocervical 8001) SLIDES: (test code = 1 8011) LMP: (test code = 8021) 06/16/20 SPECIMEN ADEQUACY: (test (NOTE) code = 63813) INTERPRETATION: (test NILM/NO EPITH. code = 47134) ABNORMALITY;SEE BELOW DRAMATIC DIRECTOR: (test VANESSA Brantley. code = 8101) AMY HUBER(ASCP) LOCATION: (test code = (NOTE) 85797) CPT: (test code = 8140) (NOTE) HPV HIGH RISK WITH GENOTYPE, [id number] 00:00:00 Test Item Value Reference Range Interpretation Comments HPV HIGH RISK INTERP (test code = NEGATIVE 24889) HPV 16 (test code = 90899) NEGATIVE HPV 18 (test code = 05721) NEGATIVE HPV, HR, OTHER GENOTYPES (test code NEGATIVE = 34142) HPV HIGH RISK WITH GENOTYPE, [id number] 00:00:00 Test Item Value Reference Range Interpretation Comments HPV HIGH RISK INTERP (test code = NEGATIVE 67217) HPV 16 (test code = 95662) NEGATIVE HPV 18 (test code = 50383) NEGATIVE HPV, HR, OTHER GENOTYPES (test code NEGATIVE = 45027) GC AND CHLAMYDIA AMPLIFIED, [id number] 00:00:00 Test Item Value Reference Range Interpretation Comments GONORRHEA, TMA (test code = 04188) NEGATIVE CHLAMYDIA, TMA (test code = 94087) NEGATIVE GC AND CHLAMYDIA AMPLIFIED, [id number] 00:00:00 Test Item Value Reference Range Interpretation Comments GONORRHEA, TMA (test code = 86881) NEGATIVE CHLAMYDIA, TMA (test code = 32173) NEGATIVE PAP TEST, THINPREP, [id number] 00:00:00 Test Item Value Reference Range Interpretation Comments SOURCE: (test code = Cervical/Endocervical 8001) SLIDES: (test code = 1 8011) LMP: (test code = 8021) 06/16/20 SPECIMEN ADEQUACY: (test (NOTE) code = 97361) INTERPRETATION: (test NILM/NO EPITH. code = 13518) ABNORMALITY;SEE BELOW DRAMATIC DIRECTOR: (test VANESSA Brantley. code = 8101) AMY HUBER(ASCP) LOCATION: (test code = (NOTE) 98805) CPT: (test code = 8140) (NOTE) PAP TEST, THINPREP, [id number] 00:00:00 Test Item Value Reference Range Interpretation Comments SOURCE: (test code = Cervical/Endocervical 8001) SLIDES: (test code = 1 8011) LMP: (test code = 8021) 06/16/20 SPECIMEN ADEQUACY: (test (NOTE) code = 52928) INTERPRETATION: (test NILM/NO EPITH. code = 40691) ABNORMALITY;SEE BELOW DRAMATIC DIRECTOR: (test VANESSA Brantley. code = 8101) AMY HUBER(ASCP) LOCATION: (test code = (NOTE) 36089) CPT: (test code = 8140) (NOTE) PAP TEST, THINPREP, [id number] 00:00:00 Test Item Value Reference Range Interpretation Comments SOURCE: (test code = Cervical/Endocervical 8001) SLIDES: (test code = 1 8011) LMP: (test code = 8021) 06/16/20 SPECIMEN ADEQUACY: (test (NOTE) code = 88749) INTERPRETATION: (test NILM/NO EPITH. code = 76681) ABNORMALITY;SEE BELOW DRAMATIC DIRECTOR: (test VANESSA Brantley. code = 8101) AMY HUBER(ASCP) LOCATION: (test code = (NOTE) 98497) CPT: (test code = 8140) (NOTE) HPV HIGH RISK WITH GENOTYPE, [id number] 00:00:00 Test Item Value Reference Range Interpretation Comments HPV HIGH RISK INTERP (test code = NEGATIVE 07159) HPV 16 (test code = 89587) NEGATIVE HPV 18 (test code = 76101) NEGATIVE HPV, HR, OTHER GENOTYPES (test code NEGATIVE = 50950) HPV HIGH RISK WITH GENOTYPE, [id number] 00:00:00 Test Item Value Reference Range Interpretation Comments HPV HIGH RISK INTERP (test code = NEGATIVE 19483) HPV 16 (test code = 71653) NEGATIVE HPV 18 (test code = 21832) NEGATIVE HPV, HR, OTHER GENOTYPES (test code NEGATIVE = 84703) GC AND CHLAMYDIA AMPLIFIED, [id number] 00:00:00 Test Item Value Reference Range Interpretation Comments GONORRHEA, TMA (test code = 69825) NEGATIVE CHLAMYDIA, TMA (test code = 37051) NEGATIVE GC AND CHLAMYDIA AMPLIFIED, [id number] 00:00:00 Test Item Value Reference Range Interpretation Comments GONORRHEA, TMA (test code = 08908) NEGATIVE CHLAMYDIA, TMA (test code = 57948) NEGATIVE HPV HIGH RISK WITH GENOTYPE, [id number] 00:00:00 Test Item Value Reference Range Interpretation Comments HPV HIGH RISK INTERP (test code = NEGATIVE 02650) HPV 16 (test code = 12400) NEGATIVE HPV 18 (test code = 15605) NEGATIVE HPV, HR, OTHER GENOTYPES (test code NEGATIVE = 18171) GC AND CHLAMYDIA AMPLIFIED, [id number] 00:00:00 Test Item Value Reference Range Interpretation Comments GONORRHEA, TMA (test code = 67350) NEGATIVE CHLAMYDIA, TMA (test code = 01608) NEGATIVE PAP TEST, THINPREP, [id number] 00:00:00 Test Item Value Reference Range Interpretation Comments SOURCE: (test code = Cervical/Endocervical 8001) SLIDES: (test code = 1 8011) LMP: (test code = 8021) 06/16/20 SPECIMEN ADEQUACY: (test (NOTE) code = 67462) INTERPRETATION: (test NILM/NO EPITH. code = 54990) ABNORMALITY;SEE BELOW DRAMATIC DIRECTOR: (test VANESSA G. code = 8101) AMY HUBER(ASCP) LOCATION: (test code = (NOTE) 59450) CPT: (test code = 8140) (NOTE) PAP TEST, THINPREP, [id number] 00:00:00 Test Item Value Reference Range Interpretation Comments SOURCE: (test code = Cervical/Endocervical 8001) SLIDES: (test code = 1 8011) LMP: (test code = 8021) 06/16/20 SPECIMEN ADEQUACY: (test (NOTE) code = 79290) INTERPRETATION: (test NILM/NO EPITH. code = 20263) ABNORMALITY;SEE BELOW DRAMATIC DIRECTOR: (test VANESSA G. code = 8101) AMY HUBER(ASCP) LOCATION: (test code = (NOTE) 27945) CPT: (test code = 8140) (NOTE) HPV HIGH RISK WITH GENOTYPE, [id number] 00:00:00 Test Item Value Reference Range Interpretation Comments HPV HIGH RISK INTERP (test code = NEGATIVE 73284) HPV 16 (test code = 50218) NEGATIVE HPV 18 (test code = 86986) NEGATIVE HPV, HR, OTHER GENOTYPES (test code NEGATIVE = 19723) HPV HIGH RISK WITH GENOTYPE, [id number] 00:00:00 Test Item Value Reference Range Interpretation Comments HPV HIGH RISK INTERP (test code = NEGATIVE 12023) HPV 16 (test code = 85640) NEGATIVE HPV 18 (test code = 43819) NEGATIVE HPV, HR, OTHER GENOTYPES (test code NEGATIVE = 23309) GC AND CHLAMYDIA AMPLIFIED, [id number] 00:00:00 Test Item Value Reference Range Interpretation Comments GONORRHEA, TMA (test code = 75886) NEGATIVE CHLAMYDIA, TMA (test code = 46009) NEGATIVE GC AND CHLAMYDIA AMPLIFIED, [id number] 00:00:00 Test Item Value Reference Range Interpretation Comments GONORRHEA, TMA (test code = 54537) NEGATIVE CHLAMYDIA, TMA (test code = 55934) NEGATIVE [id number] 00:00:00 Test Item Value Reference Range Interpretation Comments RPR RESULT (test code = NON-REACTIVE 3501) RPR TITER (test code = 3500) NOT INDIC. TITER [id number] 00:00:00 Test Item Value Reference Range Interpretation Comments RPR RESULT (test code = NON-REACTIVE 3501) RPR TITER (test code = 3500) NOT INDIC. TITER [id number] 00:00:00 Test Item Value Reference Range Interpretation Comments RPR RESULT (test code = NON-REACTIVE 3501) RPR TITER (test code = 3500) NOT INDIC. TITER HIV AB/AG COMBO RFLX [id number] 00:00:00 Test Item Value Reference Range Interpretation Comments HIV 1/2 4TH GEN, RFLX CONF (test NON-REACTIVE code = 3514) HIV AB/AG COMBO RFLX [id number] 00:00:00 Test Item Value Reference Range Interpretation Comments HIV 1/2 4TH GEN, RFLX CONF (test NON-REACTIVE code = 3514) ACUTE HEPATITIS [id number] 00:00:00 Test Item Value Reference Range Interpretation Comments HEPATITIS A IgM (test code = NON-REACTIVE 04864) HEPATITIS B CORE IgM (test code NON-REACTIVE = 9944) HEPATITIS B SURF AG (test code = NON-REACTIVE 1879) HEPATITIS C ANTIBODY (test code NON-REACTIVE = 4615) INTERPRETATION HEPATITIS A: (NOTE) (test code = 2552) INTERPRETATION HEPATITIS B: (NOTE) (test code = 66745) INTERPRETATION HEPATITIS C: (NOTE) (test code = 04319) ACUTE HEPATITIS [id number] 00:00:00 Test Item Value Reference Range Interpretation Comments HEPATITIS A IgM (test code = NON-REACTIVE 95295) HEPATITIS B CORE IgM (test code NON-REACTIVE = 4644) HEPATITIS B SURF AG (test code = NON-REACTIVE 8849) HEPATITIS C ANTIBODY (test code NON-REACTIVE = 4680) INTERPRETATION HEPATITIS A: (NOTE) (test code = 2552) INTERPRETATION HEPATITIS B: (NOTE) (test code = 10427) INTERPRETATION HEPATITIS C: (NOTE) (test code = 39612) VAGINAL PATHOGENS DNA [id number] 00:00:00 Test Item Value Reference Range Interpretation Comments ROSEMARY SPECIES (test code = ) NEGATIVE G. VAGINALIS (test code = 23106) POSITIVE T. VAGINALIS (test code = 05859) NEGATIVE VAGINAL PATHOGENS DNA [id number] 00:00:00 Test Item Value Reference Range Interpretation Comments ROSEMARY SPECIES (test code = ) NEGATIVE G. VAGINALIS (test code = ) POSITIVE T. VAGINALIS (test code = ) NEGATIVE [id number] 00:00:00 Test Item Value Reference Range Interpretation Comments RPR RESULT (test code = NON-REACTIVE 3501) RPR TITER (test code = 3500) NOT INDIC. TITER [id number] 00:00:00 Test Item Value Reference Range Interpretation Comments RPR RESULT (test code = NON-REACTIVE 3501) RPR TITER (test code = 3500) NOT INDIC. TITER [id number] 00:00:00 Test Item Value Reference Range Interpretation Comments RPR RESULT (test code = NON-REACTIVE 3501) RPR TITER (test code = 3500) NOT INDIC. TITER [id number] 00:00:00 Test Item Value Reference Range Interpretation Comments RPR RESULT (test code = NON-REACTIVE 3501) RPR TITER (test code = 3500) NOT INDIC. TITER HIV AB/AG COMBO RFLX [id number] 00:00:00 Test Item Value Reference Range Interpretation Comments HIV 1/2 4TH GEN, RFLX CONF (test NON-REACTIVE code = 3514) [id number] 00:00:00 Test Item Value Reference Range Interpretation Comments RPR RESULT (test code = NON-REACTIVE 3501) RPR TITER (test code = 3500) NOT INDIC. TITER HIV AB/AG COMBO RFLX [id number] 00:00:00 Test Item Value Reference Range Interpretation Comments HIV 1/2 4TH GEN, RFLX CONF (test NON-REACTIVE code = 3514) ACUTE HEPATITIS [id number] 00:00:00 Test Item Value Reference Range Interpretation Comments HEPATITIS A IgM (test code = NON-REACTIVE 97712) HEPATITIS B CORE IgM (test code NON-REACTIVE = 4644) HEPATITIS B SURF AG (test code = NON-REACTIVE 2739) HEPATITIS C ANTIBODY (test code NON-REACTIVE = 4675) INTERPRETATION HEPATITIS A: (NOTE) (test code = 2552) INTERPRETATION HEPATITIS B: (NOTE) (test code = 77596) INTERPRETATION HEPATITIS C: (NOTE) (test code = 77355) ACUTE HEPATITIS [id number] 00:00:00 Test Item Value Reference Range Interpretation Comments HEPATITIS A IgM (test code = NON-REACTIVE 28478) HEPATITIS B CORE IgM (test code NON-REACTIVE = 4644) HEPATITIS B SURF AG (test code = NON-REACTIVE 2739) HEPATITIS C ANTIBODY (test code NON-REACTIVE = 4675) INTERPRETATION HEPATITIS A: (NOTE) (test code = 2552) INTERPRETATION HEPATITIS B: (NOTE) (test code = 51430) INTERPRETATION HEPATITIS C: (NOTE) (test code = 31691) VAGINAL PATHOGENS DNA [id number] 00:00:00 Test Item Value Reference Range Interpretation Comments ROSEMARY SPECIES (test code = 58377) NEGATIVE G. VAGINALIS (test code = 64501) POSITIVE T. VAGINALIS (test code = 70843) NEGATIVE VAGINAL PATHOGENS DNA [id number] 00:00:00 Test Item Value Reference Range Interpretation Comments ROSEMARY SPECIES (test code = 06315) NEGATIVE G. VAGINALIS (test code = 21687) POSITIVE T. VAGINALIS (test code = 40686) NEGATIVE HIV AB/AG COMBO RFLX [id number] 00:00:00 Test Item Value Reference Range Interpretation Comments HIV 1/2 4TH GEN, RFLX CONF (test NON-REACTIVE code = 3514) [id number] 00:00:00 Test Item Value Reference Range Interpretation Comments RPR RESULT (test code = NON-REACTIVE 3501) RPR TITER (test code = 3500) NOT INDIC. TITER [id number] 00:00:00 Test Item Value Reference Range Interpretation Comments RPR RESULT (test code = NON-REACTIVE 3501) RPR TITER (test code = 3500) NOT INDIC. TITER [id number] 00:00:00 Test Item Value Reference Range Interpretation Comments RPR RESULT (test code = NON-REACTIVE 3501) RPR TITER (test code = 3500) NOT INDIC. TITER HIV AB/AG COMBO RFLX [id number] 00:00:00 Test Item Value Reference Range Interpretation Comments HIV 1/2 4TH GEN, RFLX CONF (test NON-REACTIVE code = 3514) HIV AB/AG COMBO RFLX [id number] 00:00:00 Test Item Value Reference Range Interpretation Comments HIV 1/2 4TH GEN, RFLX CONF (test NON-REACTIVE code = 3514) ACUTE HEPATITIS [id number] 00:00:00 Test Item Value Reference Range Interpretation Comments HEPATITIS A IgM (test code = NON-REACTIVE 92521) HEPATITIS B CORE IgM (test code NON-REACTIVE = 4644) HEPATITIS B SURF AG (test code = NON-REACTIVE 2739) HEPATITIS C ANTIBODY (test code NON-REACTIVE = 4675) INTERPRETATION HEPATITIS A: (NOTE) (test code = 2552) INTERPRETATION HEPATITIS B: (NOTE) (test code = 21558) INTERPRETATION HEPATITIS C: (NOTE) (test code = 01854) ACUTE HEPATITIS [id number] 00:00:00 Test Item Value Reference Range Interpretation Comments HEPATITIS A IgM (test code = NON-REACTIVE 07459) HEPATITIS B CORE IgM (test code NON-REACTIVE = 4644) HEPATITIS B SURF AG (test code = NON-REACTIVE 2739) HEPATITIS C ANTIBODY (test code NON-REACTIVE = 4675) INTERPRETATION HEPATITIS A: (NOTE) (test code = 2552) INTERPRETATION HEPATITIS B: (NOTE) (test code = 77222) INTERPRETATION HEPATITIS C: (NOTE) (test code = 83668) ACUTE HEPATITIS [id number] 00:00:00 Test Item Value Reference Range Interpretation Comments HEPATITIS A IgM (test code = NON-REACTIVE 17292) HEPATITIS B CORE IgM (test code NON-REACTIVE = 4644) HEPATITIS B SURF AG (test code = NON-REACTIVE 2739) HEPATITIS C ANTIBODY (test code NON-REACTIVE = 4675) INTERPRETATION HEPATITIS A: (NOTE) (test code = 2552) INTERPRETATION HEPATITIS B: (NOTE) (test code = 67826) INTERPRETATION HEPATITIS C: (NOTE) (test code = 49449) VAGINAL PATHOGENS DNA [id number] 00:00:00 Test Item Value Reference Range Interpretation Comments ROSEMARY SPECIES (test code = ) NEGATIVE G. VAGINALIS (test code = 33696) POSITIVE T. VAGINALIS (test code = ) NEGATIVE VAGINAL PATHOGENS DNA [id number] 00:00:00 Test Item Value Reference Range Interpretation Comments ROSEMARY SPECIES (test code = ) NEGATIVE G. VAGINALIS (test code = 29578) POSITIVE T. VAGINALIS (test code = ) NEGATIVE VAGINAL PATHOGENS DNA [id number] 00:00:00 Test Item Value Reference Range Interpretation Comments ROSEMARY SPECIES (test code = ) NEGATIVE G. VAGINALIS (test code = 18696) POSITIVE T. VAGINALIS (test code = ) NEGATIVE CBC W/AUTO [id number] 00:00:00 Test Item Value Reference Range Interpretation Comments WBC (test code = 1001) 17.5 K/UL RBC (test code = 1002) 3.57 M/UL HEMOGLOBIN (test code = 1003) 8.3 G/DL HEMATOCRIT (test code = 1004) 27.5 % MCV (test code = 1005) 77.0 fL MCH (test code = 1006) 23.2 PG MCHC (test code = 1007) 30.2 G/DL RDW (test code = 1038) (NOTE) % NEUTROPHILS (test code = 1008) 80.7 % LYMPHOCYTES (test code = 1010) 15.1 % MONOCYTES (test code = 1011) 2.5 % EOSINOPHILS (test code = 1012) 1.7 % BASOPHILS (test code = 1013) 0.0 % PLATELET COUNT (test code = 1015) 577 K/UL COMMENTS (test code = 1016) (NOTE) CBC W/AUTO [id number] 00:00:00 Test Item Value Reference Range Interpretation Comments WBC (test code = 1001) 17.5 K/UL RBC (test code = 1002) 3.57 M/UL HEMOGLOBIN (test code = 1003) 8.3 G/DL HEMATOCRIT (test code = 1004) 27.5 % MCV (test code = 1005) 77.0 fL MCH (test code = 1006) 23.2 PG MCHC (test code = 1007) 30.2 G/DL RDW (test code = 1038) (NOTE) % NEUTROPHILS (test code = 1008) 80.7 % LYMPHOCYTES (test code = 1010) 15.1 % MONOCYTES (test code = 1011) 2.5 % EOSINOPHILS (test code = 1012) 1.7 % BASOPHILS (test code = 1013) 0.0 % PLATELET COUNT (test code = 1015) 577 K/UL COMMENTS (test code = 1016) (NOTE) CBC W/AUTO [id number] 00:00:00 Test Item Value Reference Range Interpretation Comments WBC (test code = 1001) 17.5 K/UL RBC (test code = 1002) 3.57 M/UL HEMOGLOBIN (test code = 1003) 8.3 G/DL HEMATOCRIT (test code = 1004) 27.5 % MCV (test code = 1005) 77.0 fL MCH (test code = 1006) 23.2 PG MCHC (test code = 1007) 30.2 G/DL RDW (test code = 1038) (NOTE) % NEUTROPHILS (test code = 1008) 80.7 % LYMPHOCYTES (test code = 1010) 15.1 % MONOCYTES (test code = 1011) 2.5 % EOSINOPHILS (test code = 1012) 1.7 % BASOPHILS (test code = 1013) 0.0 % PLATELET COUNT (test code = 1015) 577 K/UL COMMENTS (test code = 1016) (NOTE) CBC W/AUTO [id number] 00:00:00 Test Item Value Reference Range Interpretation Comments WBC (test code = 1001) 17.5 K/UL RBC (test code = 1002) 3.57 M/UL HEMOGLOBIN (test code = 1003) 8.3 G/DL HEMATOCRIT (test code = 1004) 27.5 % MCV (test code = 1005) 77.0 fL MCH (test code = 1006) 23.2 PG MCHC (test code = 1007) 30.2 G/DL RDW (test code = 1038) (NOTE) % NEUTROPHILS (test code = 1008) 80.7 % LYMPHOCYTES (test code = 1010) 15.1 % MONOCYTES (test code = 1011) 2.5 % EOSINOPHILS (test code = 1012) 1.7 % BASOPHILS (test code = 1013) 0.0 % PLATELET COUNT (test code = 1015) 577 K/UL COMMENTS (test code = 1016) (NOTE) CBC W/AUTO [id number] 00:00:00 Test Item Value Reference Range Interpretation Comments WBC (test code = 1001) 17.5 K/UL RBC (test code = 1002) 3.57 M/UL HEMOGLOBIN (test code = 1003) 8.3 G/DL HEMATOCRIT (test code = 1004) 27.5 % MCV (test code = 1005) 77.0 fL MCH (test code = 1006) 23.2 PG MCHC (test code = 1007) 30.2 G/DL RDW (test code = 1038) (NOTE) % NEUTROPHILS (test code = 1008) 80.7 % LYMPHOCYTES (test code = 1010) 15.1 % MONOCYTES (test code = 1011) 2.5 % EOSINOPHILS (test code = 1012) 1.7 % BASOPHILS (test code = 1013) 0.0 % PLATELET COUNT (test code = 1015) 577 K/UL COMMENTS (test code = 1016) (NOTE) CBC W/AUTO [id number] 00:00:00 Test Item Value Reference Range Interpretation Comments WBC (test code = 1001) 17.5 K/UL RBC (test code = 1002) 3.57 M/UL HEMOGLOBIN (test code = 1003) 8.3 G/DL HEMATOCRIT (test code = 1004) 27.5 % MCV (test code = 1005) 77.0 fL MCH (test code = 1006) 23.2 PG MCHC (test code = 1007) 30.2 G/DL RDW (test code = 1038) (NOTE) % NEUTROPHILS (test code = 1008) 80.7 % LYMPHOCYTES (test code = 1010) 15.1 % MONOCYTES (test code = 1011) 2.5 % EOSINOPHILS (test code = 1012) 1.7 % BASOPHILS (test code = 1013) 0.0 % PLATELET COUNT (test code = 1015) 577 K/UL COMMENTS (test code = 1016) (NOTE) CBC W/AUTO [id number] 00:00:00 Test Item Value Reference Range Interpretation Comments WBC (test code = 1001) 17.5 K/UL RBC (test code = 1002) 3.57 M/UL HEMOGLOBIN (test code = 1003) 8.3 G/DL HEMATOCRIT (test code = 1004) 27.5 % MCV (test code = 1005) 77.0 fL MCH (test code = 1006) 23.2 PG MCHC (test code = 1007) 30.2 G/DL RDW (test code = 1038) (NOTE) % NEUTROPHILS (test code = 1008) 80.7 % LYMPHOCYTES (test code = 1010) 15.1 % MONOCYTES (test code = 1011) 2.5 % EOSINOPHILS (test code = 1012) 1.7 % BASOPHILS (test code = 1013) 0.0 % PLATELET COUNT (test code = 1015) 577 K/UL COMMENTS (test code = 1016) (NOTE) CBC W/AUTO [id number] 00:00:00 Test Item Value Reference Range Interpretation Comments WBC (test code = 1001) 17.5 K/UL RBC (test code = 1002) 3.57 M/UL HEMOGLOBIN (test code = 1003) 8.3 G/DL HEMATOCRIT (test code = 1004) 27.5 % MCV (test code = 1005) 77.0 fL MCH (test code = 1006) 23.2 PG MCHC (test code = 1007) 30.2 G/DL RDW (test code = 1038) (NOTE) % NEUTROPHILS (test code = 1008) 80.7 % LYMPHOCYTES (test code = 1010) 15.1 % MONOCYTES (test code = 1011) 2.5 % EOSINOPHILS (test code = 1012) 1.7 % BASOPHILS (test code = 1013) 0.0 % PLATELET COUNT (test code = 1015) 577 K/UL COMMENTS (test code = 1016) (NOTE) CBC W/AUTO [id number] 00:00:00 Test Item Value Reference Range Interpretation Comments WBC (test code = 1001) 17.5 K/UL RBC (test code = 1002) 3.57 M/UL HEMOGLOBIN (test code = 1003) 8.3 G/DL HEMATOCRIT (test code = 1004) 27.5 % MCV (test code = 1005) 77.0 fL MCH (test code = 1006) 23.2 PG MCHC (test code = 1007) 30.2 G/DL RDW (test code = 1038) (NOTE) % NEUTROPHILS (test code = 1008) 80.7 % LYMPHOCYTES (test code = 1010) 15.1 % MONOCYTES (test code = 1011) 2.5 % EOSINOPHILS (test code = 1012) 1.7 % BASOPHILS (test code = 1013) 0.0 % PLATELET COUNT (test code = 1015) 577 K/UL COMMENTS (test code = 1016) (NOTE) CBC W/AUTO [id number] 00:00:00 Test Item Value Reference Range Interpretation Comments WBC (test code = 1001) 17.5 K/UL RBC (test code = 1002) 3.57 M/UL HEMOGLOBIN (test code = 1003) 8.3 G/DL HEMATOCRIT (test code = 1004) 27.5 % MCV (test code = 1005) 77.0 fL MCH (test code = 1006) 23.2 PG MCHC (test code = 1007) 30.2 G/DL RDW (test code = 1038) (NOTE) % NEUTROPHILS (test code = 1008) 80.7 % LYMPHOCYTES (test code = 1010) 15.1 % MONOCYTES (test code = 1011) 2.5 % EOSINOPHILS (test code = 1012) 1.7 % BASOPHILS (test code = 1013) 0.0 % PLATELET COUNT (test code = 1015) 577 K/UL COMMENTS (test code = 1016) (NOTE) CBC W/AUTO [id number] 00:00:00 Test Item Value Reference Range Interpretation Comments WBC (test code = 1001) 17.5 K/UL RBC (test code = 1002) 3.57 M/UL HEMOGLOBIN (test code = 1003) 8.3 G/DL HEMATOCRIT (test code = 1004) 27.5 % MCV (test code = 1005) 77.0 fL MCH (test code = 1006) 23.2 PG MCHC (test code = 1007) 30.2 G/DL RDW (test code = 1038) (NOTE) % NEUTROPHILS (test code = 1008) 80.7 % LYMPHOCYTES (test code = 1010) 15.1 % MONOCYTES (test code = 1011) 2.5 % EOSINOPHILS (test code = 1012) 1.7 % BASOPHILS (test code = 1013) 0.0 % PLATELET COUNT (test code = 1015) 577 K/UL COMMENTS (test code = 1016) (NOTE) CBC W/AUTO [id number] 00:00:00 Test Item Value Reference Range Interpretation Comments WBC (test code = 1001) 9.6 K/UL RBC (test code = 1002) 4.38 M/UL HEMOGLOBIN (test code = 1003) 9.4 G/DL HEMATOCRIT (test code = 1004) 31.9 % MCV (test code = 1005) 72.8 fL MCH (test code = 1006) 21.5 PG MCHC (test code = 1007) 29.5 G/DL RDW (test code = 1038) (NOTE) % NEUTROPHILS (test code = 1008) 70.2 % LYMPHOCYTES (test code = 1010) 22.1 % MONOCYTES (test code = 1011) 5.9 % EOSINOPHILS (test code = 1012) 0.9 % BASOPHILS (test code = 1013) 0.9 % PLATELET COUNT (test code = 1015) 36 K/UL COMMENTS (test code = 1016) (NOTE) CBC W/AUTO [id number] 00:00:00 Test Item Value Reference Range Interpretation Comments WBC (test code = 1001) 9.6 K/UL RBC (test code = 1002) 4.38 M/UL HEMOGLOBIN (test code = 1003) 9.4 G/DL HEMATOCRIT (test code = 1004) 31.9 % MCV (test code = 1005) 72.8 fL MCH (test code = 1006) 21.5 PG MCHC (test code = 1007) 29.5 G/DL RDW (test code = 1038) (NOTE) % NEUTROPHILS (test code = 1008) 70.2 % LYMPHOCYTES (test code = 1010) 22.1 % MONOCYTES (test code = 1011) 5.9 % EOSINOPHILS (test code = 1012) 0.9 % BASOPHILS (test code = 1013) 0.9 % PLATELET COUNT (test code = 1015) 36 K/UL COMMENTS (test code = 1016) (NOTE) CBC W/AUTO [id number] 00:00:00 Test Item Value Reference Range Interpretation Comments WBC (test code = 1001) 9.6 K/UL RBC (test code = 1002) 4.38 M/UL HEMOGLOBIN (test code = 1003) 9.4 G/DL HEMATOCRIT (test code = 1004) 31.9 % MCV (test code = 1005) 72.8 fL MCH (test code = 1006) 21.5 PG MCHC (test code = 1007) 29.5 G/DL RDW (test code = 1038) (NOTE) % NEUTROPHILS (test code = 1008) 70.2 % LYMPHOCYTES (test code = 1010) 22.1 % MONOCYTES (test code = 1011) 5.9 % EOSINOPHILS (test code = 1012) 0.9 % BASOPHILS (test code = 1013) 0.9 % PLATELET COUNT (test code = 1015) 36 K/UL COMMENTS (test code = 1016) (NOTE) [id number] 00:00:00 Test Item Value Reference Range Interpretation Comments TSH, THIRD GENERATION (test code 0.969 UIU/ML = 2821) [id number] 00:00:00 Test Item Value Reference Range Interpretation Comments TSH, THIRD GENERATION (test code 0.969 UIU/ML = 2821) [id number] 00:00:00 Test Item Value Reference Range Interpretation Comments TSH, THIRD GENERATION (test code 0.969 UIU/ML = 2821) CBC W/AUTO [id number] 00:00:00 Test Item Value Reference Range Interpretation Comments WBC (test code = 1001) 9.6 K/UL RBC (test code = 1002) 4.38 M/UL HEMOGLOBIN (test code = 1003) 9.4 G/DL HEMATOCRIT (test code = 1004) 31.9 % MCV (test code = 1005) 72.8 fL MCH (test code = 1006) 21.5 PG MCHC (test code = 1007) 29.5 G/DL RDW (test code = 1038) (NOTE) % NEUTROPHILS (test code = 1008) 70.2 % LYMPHOCYTES (test code = 1010) 22.1 % MONOCYTES (test code = 1011) 5.9 % EOSINOPHILS (test code = 1012) 0.9 % BASOPHILS (test code = 1013) 0.9 % PLATELET COUNT (test code = 1015) 36 K/UL COMMENTS (test code = 1016) (NOTE) CBC W/AUTO [id number] 00:00:00 Test Item Value Reference Range Interpretation Comments WBC (test code = 1001) 9.6 K/UL RBC (test code = 1002) 4.38 M/UL HEMOGLOBIN (test code = 1003) 9.4 G/DL HEMATOCRIT (test code = 1004) 31.9 % MCV (test code = 1005) 72.8 fL MCH (test code = 1006) 21.5 PG MCHC (test code = 1007) 29.5 G/DL RDW (test code = 1038) (NOTE) % NEUTROPHILS (test code = 1008) 70.2 % LYMPHOCYTES (test code = 1010) 22.1 % MONOCYTES (test code = 1011) 5.9 % EOSINOPHILS (test code = 1012) 0.9 % BASOPHILS (test code = 1013) 0.9 % PLATELET COUNT (test code = 1015) 36 K/UL COMMENTS (test code = 1016) (NOTE) CBC W/AUTO [id number] 00:00:00 Test Item Value Reference Range Interpretation Comments WBC (test code = 1001) 9.6 K/UL RBC (test code = 1002) 4.38 M/UL HEMOGLOBIN (test code = 1003) 9.4 G/DL HEMATOCRIT (test code = 1004) 31.9 % MCV (test code = 1005) 72.8 fL MCH (test code = 1006) 21.5 PG MCHC (test code = 1007) 29.5 G/DL RDW (test code = 1038) (NOTE) % NEUTROPHILS (test code = 1008) 70.2 % LYMPHOCYTES (test code = 1010) 22.1 % MONOCYTES (test code = 1011) 5.9 % EOSINOPHILS (test code = 1012) 0.9 % BASOPHILS (test code = 1013) 0.9 % PLATELET COUNT (test code = 1015) 36 K/UL COMMENTS (test code = 1016) (NOTE) CBC W/AUTO [id number] 00:00:00 Test Item Value Reference Range Interpretation Comments WBC (test code = 1001) 9.6 K/UL RBC (test code = 1002) 4.38 M/UL HEMOGLOBIN (test code = 1003) 9.4 G/DL HEMATOCRIT (test code = 1004) 31.9 % MCV (test code = 1005) 72.8 fL MCH (test code = 1006) 21.5 PG MCHC (test code = 1007) 29.5 G/DL RDW (test code = 1038) (NOTE) % NEUTROPHILS (test code = 1008) 70.2 % LYMPHOCYTES (test code = 1010) 22.1 % MONOCYTES (test code = 1011) 5.9 % EOSINOPHILS (test code = 1012) 0.9 % BASOPHILS (test code = 1013) 0.9 % PLATELET COUNT (test code = 1015) 36 K/UL COMMENTS (test code = 1016) (NOTE) CBC W/AUTO [id number] 00:00:00 Test Item Value Reference Range Interpretation Comments WBC (test code = 1001) 9.6 K/UL RBC (test code = 1002) 4.38 M/UL HEMOGLOBIN (test code = 1003) 9.4 G/DL HEMATOCRIT (test code = 1004) 31.9 % MCV (test code = 1005) 72.8 fL MCH (test code = 1006) 21.5 PG MCHC (test code = 1007) 29.5 G/DL RDW (test code = 1038) (NOTE) % NEUTROPHILS (test code = 1008) 70.2 % LYMPHOCYTES (test code = 1010) 22.1 % MONOCYTES (test code = 1011) 5.9 % EOSINOPHILS (test code = 1012) 0.9 % BASOPHILS (test code = 1013) 0.9 % PLATELET COUNT (test code = 1015) 36 K/UL COMMENTS (test code = 1016) (NOTE) [id number] 00:00:00 Test Item Value Reference Range Interpretation Comments TSH, THIRD GENERATION (test code 0.969 UIU/ML = 2821) [id number] 00:00:00 Test Item Value Reference Range Interpretation Comments TSH, THIRD GENERATION (test code 0.969 UIU/ML = 2821) [id number] 00:00:00 Test Item Value Reference Range Interpretation Comments TSH, THIRD GENERATION (test code 0.969 UIU/ML = 2821) [id number] 00:00:00 Test Item Value Reference Range Interpretation Comments TSH, THIRD GENERATION (test code 0.969 UIU/ML = 2821) [id number] 00:00:00 Test Item Value Reference Range Interpretation Comments TSH, THIRD GENERATION (test code 0.969 UIU/ML = 2821) CBC W/AUTO [id number] 00:00:00 Test Item Value Reference Range Interpretation Comments WBC (test code = 1001) 9.6 K/UL RBC (test code = 1002) 4.38 M/UL HEMOGLOBIN (test code = 1003) 9.4 G/DL HEMATOCRIT (test code = 1004) 31.9 % MCV (test code = 1005) 72.8 fL MCH (test code = 1006) 21.5 PG MCHC (test code = 1007) 29.5 G/DL RDW (test code = 1038) (NOTE) % NEUTROPHILS (test code = 1008) 70.2 % LYMPHOCYTES (test code = 1010) 22.1 % MONOCYTES (test code = 1011) 5.9 % EOSINOPHILS (test code = 1012) 0.9 % BASOPHILS (test code = 1013) 0.9 % PLATELET COUNT (test code = 1015) 36 K/UL COMMENTS (test code = 1016) (NOTE) CBC W/AUTO [id number] 00:00:00 Test Item Value Reference Range Interpretation Comments WBC (test code = 1001) 9.6 K/UL RBC (test code = 1002) 4.38 M/UL HEMOGLOBIN (test code = 1003) 9.4 G/DL HEMATOCRIT (test code = 1004) 31.9 % MCV (test code = 1005) 72.8 fL MCH (test code = 1006) 21.5 PG MCHC (test code = 1007) 29.5 G/DL RDW (test code = 1038) (NOTE) % NEUTROPHILS (test code = 1008) 70.2 % LYMPHOCYTES (test code = 1010) 22.1 % MONOCYTES (test code = 1011) 5.9 % EOSINOPHILS (test code = 1012) 0.9 % BASOPHILS (test code = 1013) 0.9 % PLATELET COUNT (test code = 1015) 36 K/UL COMMENTS (test code = 1016) (NOTE) CBC W/AUTO [id number] 00:00:00 Test Item Value Reference Range Interpretation Comments WBC (test code = 1001) 9.6 K/UL RBC (test code = 1002) 4.38 M/UL HEMOGLOBIN (test code = 1003) 9.4 G/DL HEMATOCRIT (test code = 1004) 31.9 % MCV (test code = 1005) 72.8 fL MCH (test code = 1006) 21.5 PG MCHC (test code = 1007) 29.5 G/DL RDW (test code = 1038) (NOTE) % NEUTROPHILS (test code = 1008) 70.2 % LYMPHOCYTES (test code = 1010) 22.1 % MONOCYTES (test code = 1011) 5.9 % EOSINOPHILS (test code = 1012) 0.9 % BASOPHILS (test code = 1013) 0.9 % PLATELET COUNT (test code = 1015) 36 K/UL COMMENTS (test code = 1016) (NOTE) [id number] 00:00:00 Test Item Value Reference Range Interpretation Comments TSH, THIRD GENERATION (test code 0.969 UIU/ML = 2821) [id number] 00:00:00 Test Item Value Reference Range Interpretation Comments TSH, THIRD GENERATION (test code 0.969 UIU/ML = 2821) [id number] 00:00:00 Test Item Value Reference Range Interpretation Comments TSH, THIRD GENERATION (test code 0.969 UIU/ML = 2821) HEMOGLOBIN [id number] 00:00:00 Test Item Value Reference Range Interpretation Comments HEMOGLOBIN A1c (test code = 27552) 5.0 % HEMOGLOBIN [id number] 00:00:00 Test Item Value Reference Range Interpretation Comments HEMOGLOBIN A1c (test code = 00442) 5.0 % HEMOGLOBIN [id number] 00:00:00 Test Item Value Reference Range Interpretation Comments HEMOGLOBIN A1c (test code = 52420) 5.0 % HEMOGLOBIN [id number] 00:00:00 Test Item Value Reference Range Interpretation Comments HEMOGLOBIN A1c (test code = 02961) 5.0 % HEMOGLOBIN [id number] 00:00:00 Test Item Value Reference Range Interpretation Comments HEMOGLOBIN A1c (test code = 95126) 5.0 % HEMOGLOBIN [id number] 00:00:00 Test Item Value Reference Range Interpretation Comments HEMOGLOBIN A1c (test code = 88614) 5.0 % HEMOGLOBIN [id number] 00:00:00 Test Item Value Reference Range Interpretation Comments HEMOGLOBIN A1c (test code = 12258) 5.0 % HEMOGLOBIN [id number] 00:00:00 Test Item Value Reference Range Interpretation Comments HEMOGLOBIN A1c (test code = 45085) 5.0 % HEMOGLOBIN [id number] 00:00:00 Test Item Value Reference Range Interpretation Comments HEMOGLOBIN A1c (test code = 02671) 5.0 % HEMOGLOBIN [id number] 00:00:00 Test Item Value Reference Range Interpretation Comments HEMOGLOBIN A1c (test code = 30806) 5.0 % HEMOGLOBIN [id number] 00:00:00 Test Item Value Reference Range Interpretation Comments HEMOGLOBIN A1c (test code = 68472) 5.0 % LIPID [id number] 00:00:00 Test Item Value Reference Range Interpretation Comments CHOLESTEROL (test code = 2210) 147 MG/DL TRIGLYCERIDES (test code = 2232) 62 MG/DL HDL CHOLESTEROL (test code = 2220) 53 MG/DL CALC LDL CHOL (test code = 2237) 82 MG/DL RISK RATIO LDL/HDL (test code = 1.54 RATIO 2238) LIPID [id number] 00:00:00 Test Item Value Reference Range Interpretation Comments CHOLESTEROL (test code = 2210) 147 MG/DL TRIGLYCERIDES (test code = 2232) 62 MG/DL HDL CHOLESTEROL (test code = 2220) 53 MG/DL CALC LDL CHOL (test code = 2237) 82 MG/DL RISK RATIO LDL/HDL (test code = 1.54 RATIO 2238) CBC W/AUTO [id number] 00:00:00 Test Item Value Reference Range Interpretation Comments WBC (test code = 1001) 7.9 K/UL RBC (test code = 1002) 3.30 M/UL HEMOGLOBIN (test code = 1003) 5.6 G/DL HEMATOCRIT (test code = 1004) 21.2 % MCV (test code = 1005) 64.2 fL MCH (test code = 1006) 17.0 PG MCHC (test code = 1007) 26.4 G/DL RDW (test code = 1038) 27.6 % NEUTROPHILS (test code = 1008) 63.2 % LYMPHOCYTES (test code = 1010) 24.2 % MONOCYTES (test code = 1011) 10.7 % EOSINOPHILS (test code = 1012) 1.5 % BASOPHILS (test code = 1013) 0.4 % PLATELET COUNT (test code = 1015) 396 K/UL COMMENTS (test code = 1016) (NOTE) PAP TEST, THINPREP, [id number] 00:00:00 Test Item Value Reference Range Interpretation Comments SOURCE: (test code = Cervical/Endocervical 8001) SLIDES: (test code = 1 8011) LMP: (test code = 01/26/18 8021) SPECIMEN ADEQUACY: (NOTE) (test code = 85063) INTERPRETATION: (test NO EPITHELIAL code = 08407) ABNORMALITY SEE BELOW DRAMATIC DIRECTOR: Marissa (test code = 8101) AMY Lemons(ASCP)IAC LOCATION: (test code (NOTE) = 38715) CPT: (test code = (NOTE) 8140) PAP TEST, THINPREP, [id number] 00:00:00 Test Item Value Reference Range Interpretation Comments SOURCE: (test code = Cervical/Endocervical 8001) SLIDES: (test code = 1 8011) LMP: (test code = 01/26/18 8021) SPECIMEN ADEQUACY: (NOTE) (test code = 08560) INTERPRETATION: (test NO EPITHELIAL code = 90907) ABNORMALITY SEE BELOW DRAMATIC DIRECTOR: Marissa (test code = 8101) AMY Lemons(ASCP)IAC LOCATION: (test code (NOTE) = 49828) CPT: (test code = (NOTE) 8140) CBC W/AUTO [id number] 00:00:00 Test Item Value Reference Range Interpretation Comments WBC (test code = 1001) 7.9 K/UL RBC (test code = 1002) 3.30 M/UL HEMOGLOBIN (test code = 1003) 5.6 G/DL HEMATOCRIT (test code = 1004) 21.2 % MCV (test code = 1005) 64.2 fL MCH (test code = 1006) 17.0 PG MCHC (test code = 1007) 26.4 G/DL RDW (test code = 1038) 27.6 % NEUTROPHILS (test code = 1008) 63.2 % LYMPHOCYTES (test code = 1010) 24.2 % MONOCYTES (test code = 1011) 10.7 % EOSINOPHILS (test code = 1012) 1.5 % BASOPHILS (test code = 1013) 0.4 % PLATELET COUNT (test code = 1015) 396 K/UL COMMENTS (test code = 1016) (NOTE) CBC W/AUTO [id number] 00:00:00 Test Item Value Reference Range Interpretation Comments WBC (test code = 1001) 7.9 K/UL RBC (test code = 1002) 3.30 M/UL HEMOGLOBIN (test code = 1003) 5.6 G/DL HEMATOCRIT (test code = 1004) 21.2 % MCV (test code = 1005) 64.2 fL MCH (test code = 1006) 17.0 PG MCHC (test code = 1007) 26.4 G/DL RDW (test code = 1038) 27.6 % NEUTROPHILS (test code = 1008) 63.2 % LYMPHOCYTES (test code = 1010) 24.2 % MONOCYTES (test code = 1011) 10.7 % EOSINOPHILS (test code = 1012) 1.5 % BASOPHILS (test code = 1013) 0.4 % PLATELET COUNT (test code = 1015) 396 K/UL COMMENTS (test code = 1016) (NOTE) HPV HIGH RISK WITH GENOTYPE, [id number] 00:00:00 Test Item Value Reference Range Interpretation Comments HPV HIGH RISK INTERP (test code = NEGATIVE 17331) HPV 16 (test code = 43740) NEGATIVE HPV 18 (test code = 49499) NEGATIVE HPV, HR, OTHER GENOTYPES (test code NEGATIVE = 08512) HPV HIGH RISK WITH GENOTYPE, [id number] 00:00:00 Test Item Value Reference Range Interpretation Comments HPV HIGH RISK INTERP (test code = NEGATIVE 59241) HPV 16 (test code = 84913) NEGATIVE HPV 18 (test code = 83326) NEGATIVE HPV, HR, OTHER GENOTYPES (test code NEGATIVE = 26104) BASIC METABOLIC [id number] 00:00:00 Test Item Value Reference Range Interpretation Comments GLUCOSE (test code = 2217) 101 MG/DL BUN (test code = 2208) 10 MG/DL CREATININE (test code = 2214) 0.64 MG/DL eGFR AMER. (test code 126 ML/MIN/1.73 = 45143) eGFR NON- AMER. (test 109 ML/MIN/1.73 code = 98169) SODIUM (test code = 2231) 141 MEQ/L POTASSIUM (test code = 2228) 4.4 MEQ/L CHLORIDE (test code = 2215) 107 MEQ/L CARBON DIOXIDE (test code = 22 MEQ/L 2206) CALCIUM (test code = 2209) 9.2 MG/DL BASIC METABOLIC [id number] 00:00:00 Test Item Value Reference Range Interpretation Comments GLUCOSE (test code = 2217) 101 MG/DL BUN (test code = 2208) 10 MG/DL CREATININE (test code = 2214) 0.64 MG/DL eGFR AMER. (test code 126 ML/MIN/1.73 = 64899) eGFR NON- AMER. (test 109 ML/MIN/1.73 code = 01200) SODIUM (test code = 2231) 141 MEQ/L POTASSIUM (test code = 2228) 4.4 MEQ/L CHLORIDE (test code = 2215) 107 MEQ/L CARBON DIOXIDE (test code = 22 MEQ/L 2206) CALCIUM (test code = 2209) 9.2 MG/DL ACUTE HEPATITIS [id number] 00:00:00 Test Item Value Reference Range Interpretation Comments HEPATITIS A IgM (test code = NON-REACTIVE 57435) HEPATITIS B CORE IgM (test code NON-REACTIVE = 4644) HEPATITIS B SURF AG (test code = NON-REACTIVE 2739) HEPATITIS C ANTIBODY (test code NON-REACTIVE = 4675) INTERPRETATION HEPATITIS A: (NOTE) (test code = 2552) INTERPRETATION HEPATITIS B: (NOTE) (test code = 63844) INTERPRETATION HEPATITIS C: (NOTE) (test code = 57273) ACUTE HEPATITIS [id number] 00:00:00 Test Item Value Reference Range Interpretation Comments HEPATITIS A IgM (test code = NON-REACTIVE 81580) HEPATITIS B CORE IgM (test code NON-REACTIVE = 4644) HEPATITIS B SURF AG (test code = NON-REACTIVE 2739) HEPATITIS C ANTIBODY (test code NON-REACTIVE = 4675) INTERPRETATION HEPATITIS A: (NOTE) (test code = 2552) INTERPRETATION HEPATITIS B: (NOTE) (test code = 73888) INTERPRETATION HEPATITIS C: (NOTE) (test code = 18153) HIV AB/AG COMBO RFLX [id number] 00:00:00 Test Item Value Reference Range Interpretation Comments HIV 1/2 4TH GEN, RFLX CONF (test NON-REACTIVE code = 3514) HIV AB/AG COMBO RFLX [id number] 00:00:00 Test Item Value Reference Range Interpretation Comments HIV 1/2 4TH GEN, RFLX CONF (test NON-REACTIVE code = 3514) [id number] 00:00:00 Test Item Value Reference Range Interpretation Comments RPR RESULT (test code = NON-REACTIVE 3501) RPR TITER (test code = 3500) NOT INDIC. TITER [id number] 00:00:00 Test Item Value Reference Range Interpretation Comments RPR RESULT (test code = NON-REACTIVE 3501) RPR TITER (test code = 3500) NOT INDIC. TITER [id number] 00:00:00 Test Item Value Reference Range Interpretation Comments RPR RESULT (test code = NON-REACTIVE 3501) RPR TITER (test code = 3500) NOT INDIC. TITER LIPID [id number] 00:00:00 Test Item Value Reference Range Interpretation Comments CHOLESTEROL (test code = 2210) 147 MG/DL TRIGLYCERIDES (test code = 2232) 62 MG/DL HDL CHOLESTEROL (test code = 2220) 53 MG/DL CALC LDL CHOL (test code = 2237) 82 MG/DL RISK RATIO LDL/HDL (test code = 1.54 RATIO 2238) LIPID [id number] 00:00:00 Test Item Value Reference Range Interpretation Comments CHOLESTEROL (test code = 2210) 147 MG/DL TRIGLYCERIDES (test code = 2232) 62 MG/DL HDL CHOLESTEROL (test code = 2220) 53 MG/DL CALC LDL CHOL (test code = 2237) 82 MG/DL RISK RATIO LDL/HDL (test code = 1.54 RATIO 2238) LIPID [id number] 00:00:00 Test Item Value Reference Range Interpretation Comments CHOLESTEROL (test code = 2210) 147 MG/DL TRIGLYCERIDES (test code = 2232) 62 MG/DL HDL CHOLESTEROL (test code = 2220) 53 MG/DL CALC LDL CHOL (test code = 2237) 82 MG/DL RISK RATIO LDL/HDL (test code = 1.54 RATIO 2238) CBC W/AUTO [id number] 00:00:00 Test Item Value Reference Range Interpretation Comments WBC (test code = 1001) 7.9 K/UL RBC (test code = 1002) 3.30 M/UL HEMOGLOBIN (test code = 1003) 5.6 G/DL HEMATOCRIT (test code = 1004) 21.2 % MCV (test code = 1005) 64.2 fL MCH (test code = 1006) 17.0 PG MCHC (test code = 1007) 26.4 G/DL RDW (test code = 1038) 27.6 % NEUTROPHILS (test code = 1008) 63.2 % LYMPHOCYTES (test code = 1010) 24.2 % MONOCYTES (test code = 1011) 10.7 % EOSINOPHILS (test code = 1012) 1.5 % BASOPHILS (test code = 1013) 0.4 % PLATELET COUNT (test code = 1015) 396 K/UL COMMENTS (test code = 1016) (NOTE) CBC W/AUTO [id number] 00:00:00 Test Item Value Reference Range Interpretation Comments WBC (test code = 1001) 7.9 K/UL RBC (test code = 1002) 3.30 M/UL HEMOGLOBIN (test code = 1003) 5.6 G/DL HEMATOCRIT (test code = 1004) 21.2 % MCV (test code = 1005) 64.2 fL MCH (test code = 1006) 17.0 PG MCHC (test code = 1007) 26.4 G/DL RDW (test code = 1038) 27.6 % NEUTROPHILS (test code = 1008) 63.2 % LYMPHOCYTES (test code = 1010) 24.2 % MONOCYTES (test code = 1011) 10.7 % EOSINOPHILS (test code = 1012) 1.5 % BASOPHILS (test code = 1013) 0.4 % PLATELET COUNT (test code = 1015) 396 K/UL COMMENTS (test code = 1016) (NOTE) PAP TEST, THINPREP, [id number] 00:00:00 Test Item Value Reference Range Interpretation Comments SOURCE: (test code = Cervical/Endocervical 8001) SLIDES: (test code = 1 8011) LMP: (test code = 01/26/18 8021) SPECIMEN ADEQUACY: (NOTE) (test code = 84904) INTERPRETATION: (test NO EPITHELIAL code = 80191) ABNORMALITY SEE BELOW DRAMATIC DIRECTOR: Marissa (test code = 8101) AMY Lemons(ASCP)IAC LOCATION: (test code (NOTE) = 24293) CPT: (test code = (NOTE) 8140) PAP TEST, THINPREP, [id number] 00:00:00 Test Item Value Reference Range Interpretation Comments SOURCE: (test code = Cervical/Endocervical 8001) SLIDES: (test code = 1 8011) LMP: (test code = 01/26/18 8021) SPECIMEN ADEQUACY: (NOTE) (test code = 46281) INTERPRETATION: (test NO EPITHELIAL code = 40768) ABNORMALITY SEE BELOW DRAMATIC DIRECTOR: Marissa (test code = 8101) AMY Lemons(ASCP)IAC LOCATION: (test code (NOTE) = 70357) CPT: (test code = (NOTE) 8140) CBC W/AUTO [id number] 00:00:00 Test Item Value Reference Range Interpretation Comments WBC (test code = 1001) 7.9 K/UL RBC (test code = 1002) 3.30 M/UL HEMOGLOBIN (test code = 1003) 5.6 G/DL HEMATOCRIT (test code = 1004) 21.2 % MCV (test code = 1005) 64.2 fL MCH (test code = 1006) 17.0 PG MCHC (test code = 1007) 26.4 G/DL RDW (test code = 1038) 27.6 % NEUTROPHILS (test code = 1008) 63.2 % LYMPHOCYTES (test code = 1010) 24.2 % MONOCYTES (test code = 1011) 10.7 % EOSINOPHILS (test code = 1012) 1.5 % BASOPHILS (test code = 1013) 0.4 % PLATELET COUNT (test code = 1015) 396 K/UL COMMENTS (test code = 1016) (NOTE) HPV HIGH RISK WITH GENOTYPE, [id number] 00:00:00 Test Item Value Reference Range Interpretation Comments HPV HIGH RISK INTERP (test code = NEGATIVE 76384) HPV 16 (test code = 47017) NEGATIVE HPV 18 (test code = 04896) NEGATIVE HPV, HR, OTHER GENOTYPES (test code NEGATIVE = 63718) HPV HIGH RISK WITH GENOTYPE, [id number] 00:00:00 Test Item Value Reference Range Interpretation Comments HPV HIGH RISK INTERP (test code = NEGATIVE 00520) HPV 16 (test code = 66938) NEGATIVE HPV 18 (test code = 22510) NEGATIVE HPV, HR, OTHER GENOTYPES (test code NEGATIVE = 35207) CBC W/AUTO [id number] 00:00:00 Test Item Value Reference Range Interpretation Comments WBC (test code = 1001) 7.9 K/UL RBC (test code = 1002) 3.30 M/UL HEMOGLOBIN (test code = 1003) 5.6 G/DL HEMATOCRIT (test code = 1004) 21.2 % MCV (test code = 1005) 64.2 fL MCH (test code = 1006) 17.0 PG MCHC (test code = 1007) 26.4 G/DL RDW (test code = 1038) 27.6 % NEUTROPHILS (test code = 1008) 63.2 % LYMPHOCYTES (test code = 1010) 24.2 % MONOCYTES (test code = 1011) 10.7 % EOSINOPHILS (test code = 1012) 1.5 % BASOPHILS (test code = 1013) 0.4 % PLATELET COUNT (test code = 1015) 396 K/UL COMMENTS (test code = 1016) (NOTE) BASIC METABOLIC [id number] 00:00:00 Test Item Value Reference Range Interpretation Comments GLUCOSE (test code = 2217) 101 MG/DL BUN (test code = 2208) 10 MG/DL CREATININE (test code = 2214) 0.64 MG/DL eGFR AMER. (test code 126 ML/MIN/1.73 = 14311) eGFR NON- AMER. (test 109 ML/MIN/1.73 code = 14547) SODIUM (test code = 2231) 141 MEQ/L POTASSIUM (test code = 2228) 4.4 MEQ/L CHLORIDE (test code = 2215) 107 MEQ/L CARBON DIOXIDE (test code = 22 MEQ/L 2206) CALCIUM (test code = 2209) 9.2 MG/DL CBC W/AUTO [id number] 00:00:00 Test Item Value Reference Range Interpretation Comments WBC (test code = 1001) 7.9 K/UL RBC (test code = 1002) 3.30 M/UL HEMOGLOBIN (test code = 1003) 5.6 G/DL HEMATOCRIT (test code = 1004) 21.2 % MCV (test code = 1005) 64.2 fL MCH (test code = 1006) 17.0 PG MCHC (test code = 1007) 26.4 G/DL RDW (test code = 1038) 27.6 % NEUTROPHILS (test code = 1008) 63.2 % LYMPHOCYTES (test code = 1010) 24.2 % MONOCYTES (test code = 1011) 10.7 % EOSINOPHILS (test code = 1012) 1.5 % BASOPHILS (test code = 1013) 0.4 % PLATELET COUNT (test code = 1015) 396 K/UL COMMENTS (test code = 1016) (NOTE) BASIC METABOLIC [id number] 00:00:00 Test Item Value Reference Range Interpretation Comments GLUCOSE (test code = 2217) 101 MG/DL BUN (test code = 2208) 10 MG/DL CREATININE (test code = 2214) 0.64 MG/DL eGFR AMER. (test code 126 ML/MIN/1.73 = 45919) eGFR NON- AMER. (test 109 ML/MIN/1.73 code = 01055) SODIUM (test code = 2231) 141 MEQ/L POTASSIUM (test code = 2228) 4.4 MEQ/L CHLORIDE (test code = 2215) 107 MEQ/L CARBON DIOXIDE (test code = 22 MEQ/L 2206) CALCIUM (test code = 2209) 9.2 MG/DL ACUTE HEPATITIS [id number] 00:00:00 Test Item Value Reference Range Interpretation Comments HEPATITIS A IgM (test code = NON-REACTIVE 58228) HEPATITIS B CORE IgM (test code NON-REACTIVE = 4644) HEPATITIS B SURF AG (test code = NON-REACTIVE 2739) HEPATITIS C ANTIBODY (test code NON-REACTIVE = 4675) INTERPRETATION HEPATITIS A: (NOTE) (test code = 2552) INTERPRETATION HEPATITIS B: (NOTE) (test code = 25582) INTERPRETATION HEPATITIS C: (NOTE) (test code = 02062) ACUTE HEPATITIS [id number] 00:00:00 Test Item Value Reference Range Interpretation Comments HEPATITIS A IgM (test code = NON-REACTIVE 66800) HEPATITIS B CORE IgM (test code NON-REACTIVE = 4644) HEPATITIS B SURF AG (test code = NON-REACTIVE 2739) HEPATITIS C ANTIBODY (test code NON-REACTIVE = 4675) INTERPRETATION HEPATITIS A: (NOTE) (test code = 2552) INTERPRETATION HEPATITIS B: (NOTE) (test code = 37778) INTERPRETATION HEPATITIS C: (NOTE) (test code = 28883) HIV AB/AG COMBO RFLX [id number] 00:00:00 Test Item Value Reference Range Interpretation Comments HIV 1/2 4TH GEN, RFLX CONF (test NON-REACTIVE code = 3514) HIV AB/AG COMBO RFLX [id number] 00:00:00 Test Item Value Reference Range Interpretation Comments HIV 1/2 4TH GEN, RFLX CONF (test NON-REACTIVE code = 3514) [id number] 00:00:00 Test Item Value Reference Range Interpretation Comments RPR RESULT (test code = NON-REACTIVE 3501) RPR TITER (test code = 3500) NOT INDIC. TITER [id number] 00:00:00 Test Item Value Reference Range Interpretation Comments RPR RESULT (test code = NON-REACTIVE 3501) RPR TITER (test code = 3500) NOT INDIC. TITER [id number] 00:00:00 Test Item Value Reference Range Interpretation Comments RPR RESULT (test code = NON-REACTIVE 3501) RPR TITER (test code = 3500) NOT INDIC. TITER PAP TEST, THINPREP, [id number] 00:00:00 Test Item Value Reference Range Interpretation Comments SOURCE: (test code = Cervical/Endocervical 800) SLIDES: (test code = 1 8011) LMP: (test code = 01/26/18 8021) SPECIMEN ADEQUACY: (NOTE) (test code = 25412) INTERPRETATION: (test NO EPITHELIAL code = 34788) ABNORMALITY SEE BELOW DRAMATIC DIRECTOR: Marissa (test code = 8101) AMY Lemons(ASCP)IAC LOCATION: (test code (NOTE) = 46701) CPT: (test code = (NOTE) 8140) LIPID [id number] 00:00:00 Test Item Value Reference Range Interpretation Comments CHOLESTEROL (test code = 2210) 147 MG/DL TRIGLYCERIDES (test code = 2232) 62 MG/DL HDL CHOLESTEROL (test code = 2220) 53 MG/DL CALC LDL CHOL (test code = 2237) 82 MG/DL RISK RATIO LDL/HDL (test code = 1.54 RATIO 2238) LIPID [id number] 00:00:00 Test Item Value Reference Range Interpretation Comments CHOLESTEROL (test code = 2210) 147 MG/DL TRIGLYCERIDES (test code = 2232) 62 MG/DL HDL CHOLESTEROL (test code = 2220) 53 MG/DL CALC LDL CHOL (test code = 2237) 82 MG/DL RISK RATIO LDL/HDL (test code = 1.54 RATIO 2238) PAP TEST, THINPREP, [id number] 00:00:00 Test Item Value Reference Range Interpretation Comments SOURCE: (test code = Cervical/Endocervical 800) SLIDES: (test code = 1 8011) LMP: (test code = 01/26/18 8021) SPECIMEN ADEQUACY: (NOTE) (test code = 95539) INTERPRETATION: (test NO EPITHELIAL code = 99235) ABNORMALITY SEE BELOW DRAMATIC DIRECTOR: Marissa (test code = 8101) AMY Lemons(ASCP)IAC LOCATION: (test code (NOTE) = 27196) CPT: (test code = (NOTE) 8140) CBC W/AUTO [id number] 00:00:00 Test Item Value Reference Range Interpretation Comments WBC (test code = 1001) 7.9 K/UL RBC (test code = 1002) 3.30 M/UL HEMOGLOBIN (test code = 1003) 5.6 G/DL HEMATOCRIT (test code = 1004) 21.2 % MCV (test code = 1005) 64.2 fL MCH (test code = 1006) 17.0 PG MCHC (test code = 1007) 26.4 G/DL RDW (test code = 1038) 27.6 % NEUTROPHILS (test code = 1008) 63.2 % LYMPHOCYTES (test code = 1010) 24.2 % MONOCYTES (test code = 1011) 10.7 % EOSINOPHILS (test code = 1012) 1.5 % BASOPHILS (test code = 1013) 0.4 % PLATELET COUNT (test code = 1015) 396 K/UL COMMENTS (test code = 1016) (NOTE) CBC W/AUTO [id number] 00:00:00 Test Item Value Reference Range Interpretation Comments WBC (test code = 1001) 7.9 K/UL RBC (test code = 1002) 3.30 M/UL HEMOGLOBIN (test code = 1003) 5.6 G/DL HEMATOCRIT (test code = 1004) 21.2 % MCV (test code = 1005) 64.2 fL MCH (test code = 1006) 17.0 PG MCHC (test code = 1007) 26.4 G/DL RDW (test code = 1038) 27.6 % NEUTROPHILS (test code = 1008) 63.2 % LYMPHOCYTES (test code = 1010) 24.2 % MONOCYTES (test code = 1011) 10.7 % EOSINOPHILS (test code = 1012) 1.5 % BASOPHILS (test code = 1013) 0.4 % PLATELET COUNT (test code = 1015) 396 K/UL COMMENTS (test code = 1016) (NOTE) HPV HIGH RISK WITH GENOTYPE, [id number] 00:00:00 Test Item Value Reference Range Interpretation Comments HPV HIGH RISK INTERP (test code = NEGATIVE 76856) HPV 16 (test code = 38611) NEGATIVE HPV 18 (test code = 59197) NEGATIVE HPV, HR, OTHER GENOTYPES (test code NEGATIVE = 83657) CBC W/AUTO [id number] 00:00:00 Test Item Value Reference Range Interpretation Comments WBC (test code = 1001) 7.9 K/UL RBC (test code = 1002) 3.30 M/UL HEMOGLOBIN (test code = 1003) 5.6 G/DL HEMATOCRIT (test code = 1004) 21.2 % MCV (test code = 1005) 64.2 fL MCH (test code = 1006) 17.0 PG MCHC (test code = 1007) 26.4 G/DL RDW (test code = 1038) 27.6 % NEUTROPHILS (test code = 1008) 63.2 % LYMPHOCYTES (test code = 1010) 24.2 % MONOCYTES (test code = 1011) 10.7 % EOSINOPHILS (test code = 1012) 1.5 % BASOPHILS (test code = 1013) 0.4 % PLATELET COUNT (test code = 1015) 396 K/UL COMMENTS (test code = 1016) (NOTE) PAP TEST, THINPREP, [id number] 00:00:00 Test Item Value Reference Range Interpretation Comments SOURCE: (test code = Cervical/Endocervical 8001) SLIDES: (test code = 1 8011) LMP: (test code = 01/26/18 8021) SPECIMEN ADEQUACY: (NOTE) (test code = 81891) INTERPRETATION: (test NO EPITHELIAL code = 56122) ABNORMALITY SEE BELOW DRAMATIC DIRECTOR: Marissa (test code = 8101) AMY Lemons(ASCP)IAC LOCATION: (test code (NOTE) = 52736) CPT: (test code = (NOTE) 8140) HPV HIGH RISK WITH GENOTYPE, [id number] 00:00:00 Test Item Value Reference Range Interpretation Comments HPV HIGH RISK INTERP (test code = NEGATIVE 73853) HPV 16 (test code = 35862) NEGATIVE HPV 18 (test code = 81282) NEGATIVE HPV, HR, OTHER GENOTYPES (test code NEGATIVE = 82479) HPV HIGH RISK WITH GENOTYPE, [id number] 00:00:00 Test Item Value Reference Range Interpretation Comments HPV HIGH RISK INTERP (test code = NEGATIVE 91151) HPV 16 (test code = 32975) NEGATIVE HPV 18 (test code = 31195) NEGATIVE HPV, HR, OTHER GENOTYPES (test code NEGATIVE = 25944) BASIC METABOLIC [id number] 00:00:00 Test Item Value Reference Range Interpretation Comments GLUCOSE (test code = 2217) 101 MG/DL BUN (test code = 2208) 10 MG/DL CREATININE (test code = 2214) 0.64 MG/DL eGFR AMER. (test code 126 ML/MIN/1.73 = 19533) eGFR NON- AMER. (test 109 ML/MIN/1.73 code = 15223) SODIUM (test code = 2231) 141 MEQ/L POTASSIUM (test code = 2228) 4.4 MEQ/L CHLORIDE (test code = 2215) 107 MEQ/L CARBON DIOXIDE (test code = 22 MEQ/L 2206) CALCIUM (test code = 2209) 9.2 MG/DL BASIC METABOLIC [id number] 00:00:00 Test Item Value Reference Range Interpretation Comments GLUCOSE (test code = 2217) 101 MG/DL BUN (test code = 2208) 10 MG/DL CREATININE (test code = 2214) 0.64 MG/DL eGFR AMER. (test code 126 ML/MIN/1.73 = 74163) eGFR NON- AMER. (test 109 ML/MIN/1.73 code = 05595) SODIUM (test code = 2231) 141 MEQ/L POTASSIUM (test code = 2228) 4.4 MEQ/L CHLORIDE (test code = 2215) 107 MEQ/L CARBON DIOXIDE (test code = 22 MEQ/L 2206) CALCIUM (test code = 2209) 9.2 MG/DL ACUTE HEPATITIS [id number] 00:00:00 Test Item Value Reference Range Interpretation Comments HEPATITIS A IgM (test code = NON-REACTIVE 39503) HEPATITIS B CORE IgM (test code NON-REACTIVE = 4569) HEPATITIS B SURF AG (test code = NON-REACTIVE 5866) HEPATITIS C ANTIBODY (test code NON-REACTIVE = 0943) INTERPRETATION HEPATITIS A: (NOTE) (test code = 2552) INTERPRETATION HEPATITIS B: (NOTE) (test code = 51216) INTERPRETATION HEPATITIS C: (NOTE) (test code = 35349) ACUTE HEPATITIS [id number] 00:00:00 Test Item Value Reference Range Interpretation Comments HEPATITIS A IgM (test code = NON-REACTIVE 54037) HEPATITIS B CORE IgM (test code NON-REACTIVE = 4644) HEPATITIS B SURF AG (test code = NON-REACTIVE 3519) HEPATITIS C ANTIBODY (test code NON-REACTIVE = 4675) INTERPRETATION HEPATITIS A: (NOTE) (test code = 2552) INTERPRETATION HEPATITIS B: (NOTE) (test code = 51952) INTERPRETATION HEPATITIS C: (NOTE) (test code = 65662) HIV AB/AG COMBO RFLX [id number] 00:00:00 Test Item Value Reference Range Interpretation Comments HIV 1/2 4TH GEN, RFLX CONF (test NON-REACTIVE code = 3514) HIV AB/AG COMBO RFLX [id number] 00:00:00 Test Item Value Reference Range Interpretation Comments HIV 1/2 4TH GEN, RFLX CONF (test NON-REACTIVE code = 3514) [id number] 00:00:00 Test Item Value Reference Range Interpretation Comments RPR RESULT (test code = NON-REACTIVE 3501) RPR TITER (test code = 3500) NOT INDIC. TITER [id number] 00:00:00 Test Item Value Reference Range Interpretation Comments RPR RESULT (test code = NON-REACTIVE 3501) RPR TITER (test code = 3500) NOT INDIC. TITER [id number] 00:00:00 Test Item Value Reference Range Interpretation Comments RPR RESULT (test code = NON-REACTIVE 3501) RPR TITER (test code = 3500) NOT INDIC. TITER BASIC METABOLIC [id number] 00:00:00 Test Item Value Reference Range Interpretation Comments GLUCOSE (test code = 2217) 101 MG/DL BUN (test code = 2208) 10 MG/DL CREATININE (test code = 2214) 0.64 MG/DL eGFR AMER. (test code 126 ML/MIN/1.73 = 69436) eGFR NON- AMER. (test 109 ML/MIN/1.73 code = 00522) SODIUM (test code = 2231) 141 MEQ/L POTASSIUM (test code = 2228) 4.4 MEQ/L CHLORIDE (test code = 2215) 107 MEQ/L CARBON DIOXIDE (test code = 22 MEQ/L 2206) CALCIUM (test code = 2209) 9.2 MG/DL ACUTE HEPATITIS [id number] 00:00:00 Test Item Value Reference Range Interpretation Comments HEPATITIS A IgM (test code = NON-REACTIVE 00035) HEPATITIS B CORE IgM (test code NON-REACTIVE = 2544) HEPATITIS B SURF AG (test code = NON-REACTIVE 4129) HEPATITIS C ANTIBODY (test code NON-REACTIVE = 4647) INTERPRETATION HEPATITIS A: (NOTE) (test code = 2552) INTERPRETATION HEPATITIS B: (NOTE) (test code = 49125) INTERPRETATION HEPATITIS C: (NOTE) (test code = 36628) HIV AB/AG COMBO RFLX [id number] 00:00:00 Test Item Value Reference Range Interpretation Comments HIV 1/2 4TH GEN, RFLX CONF (test NON-REACTIVE code = 3514) [id number] 00:00:00 Test Item Value Reference Range Interpretation Comments RPR RESULT (test code = NON-REACTIVE 3501) RPR TITER (test code = 3500) NOT INDIC. TITER [id number] 00:00:00 Test Item Value Reference Range Interpretation Comments RPR RESULT (test code = NON-REACTIVE 3501) RPR TITER (test code = 3500) NOT INDIC. TITER GC AND CHLAMYDIA AMPLIFIED, [id number] 00:00:00 Test Item Value Reference Range Interpretation Comments GONORRHEA, TMA (test code = 07125) NEGATIVE CHLAMYDIA, TMA (test code = 96655) NEGATIVE GC AND CHLAMYDIA AMPLIFIED, [id number] 00:00:00 Test Item Value Reference Range Interpretation Comments GONORRHEA, TMA (test code = 35190) NEGATIVE CHLAMYDIA, TMA (test code = 29792) NEGATIVE GC AND CHLAMYDIA AMPLIFIED, [id number] 00:00:00 Test Item Value Reference Range Interpretation Comments GONORRHEA, TMA (test code = 52388) NEGATIVE CHLAMYDIA, TMA (test code = 11743) NEGATIVE GC AND CHLAMYDIA AMPLIFIED, [id number] 00:00:00 Test Item Value Reference Range Interpretation Comments GONORRHEA, TMA (test code = 95559) NEGATIVE CHLAMYDIA, TMA (test code = 09018) NEGATIVE GC AND CHLAMYDIA AMPLIFIED, [id number] 00:00:00 Test Item Value Reference Range Interpretation Comments GONORRHEA, TMA (test code = 84346) NEGATIVE CHLAMYDIA, TMA (test code = 56777) NEGATIVE GC AND CHLAMYDIA AMPLIFIED, [id number] 00:00:00 Test Item Value Reference Range Interpretation Comments GONORRHEA, TMA (test code = 36644) NEGATIVE CHLAMYDIA, TMA (test code = 59396) NEGATIVE GC AND CHLAMYDIA AMPLIFIED, [id number] 00:00:00 Test Item Value Reference Range Interpretation Comments GONORRHEA, TMA (test code = 06423) NEGATIVE CHLAMYDIA, TMA (test code = 35857) NEGATIVE"
[2023-03-25] MEDS ORDERED: FAMOTIDINE 20 MG/2 ML VIAL IV ONE (10:18)
[2023-03-25] MEDS ORDERED: NA CHLORIDE 0.9% 1,000 ML ONE (10:18)
[2023-03-25] MEDS ORDERED: KETOROLAC 30 MG/ML INJ ONE (10:18)
[2023-03-25 10:30] LABS: Absolute Lymphocytes (CBC) 1.6 K/uL (0.7-4.9); Hematocrit 30.5 % (36.0-45.0); MCV 68.3 fL (80-100); MPV 8.4 fL (7.6-11.3); Platelets 280 thou/uL (152-406); RBC Red Blood Cell Count 4.47 M/uL (3.86-4.86)
[2023-03-25 10:53] LABS: Albumin 3.3 g/dL (3.4-5.0); Bilirubin Total 0.2 mg/dL (0.2-1.0); Potassium 3.6 mEq/L (3.5-5.1)
[2023-03-25 11:45] LABS: Urine Bacteria <20 /HPF (<20); Urine Bilirubin NEGATIVE (Negative); Urine Blood Negative (Negative); Urine Clarity Clear (Clear); Urine Color Colorless (Yellow); Urine Glucose NEGATIVE (Negative); Urine Protein NEGATIVE (Negative); Urine RBC <5 /HPF (None Seen); Urine Urobilinogen Normal (Normal); Urine pH 6.5 (5.0-7.0)
[2023-03-25 11:57] LABS: Anisocytosis 1+; Blood Morphology Comment NOTED (NOT SEEN); Platelet Estimate ADEQ; White Blood Cell Scan OK (OK)
[2023-03-25 11:58] LABS: Hypochromasia 1+
--- NOTE | 2023-03-25 12:08 | EDPHYS ---
Physician Documentation [facility] Name: Paulette Farrell Age: 47 yrs Sex: Female : 1975 Arrival Date: 03/25/2023 Time: 09:49 Bed 13 Private MD: ED Physician Remi Fink HPI: 03/25 10:08 This 47 yrs old Black Female presents to ER via Ambulatory with complaints of Abdominal snw Pain. 10:08 The patient presents with abdominal pain that is diffuse. Onset: The symptoms/episode snw began/occurred acutely, and became persistent. The symptoms radiate to low back. Associated signs and symptoms: Pertinent positives: nausea and vomiting. The symptoms are described as steady. Severity of pain: At its worst the pain was mild moderate. The patient has not experienced similar symptoms in the past. The patient has not recently seen a physician, sees [facility]ngel [facility]. Historical: - Allergies: 10:00 Iodine; kc6 10:00 SHELLFISH; kc6 - PMHx: 10:00 Anemia; kc6 - PSHx: 10:00 breast reduction; tubal ligation; kc6 - Immunization history:: Client reports having NOT received the Covid vaccine. Flu vaccine is not up to date. - Social history:: Smoking status: Patient reports the use of cigarette tobacco products, denies chronic smoking, but will smoke occasionally. ROS: 10:07 Constitutional: Negative for fever, chills, and weight loss, Eyes: Negative for injury, snw pain, redness, and discharge, ENT: Negative for injury, pain, and discharge, Neck: Negative for injury, pain, and swelling, Cardiovascular: Negative for chest pain, palpitations, and edema, Respiratory: Negative for shortness of breath, cough, wheezing, and pleuritic chest pain, Back: Negative for injury and pain, : Negative for injury, bleeding, discharge, and swelling, MS/Extremity: Negative for injury and deformity, Skin: Negative for injury, rash, and discoloration, Neuro: Negative for headache, weakness, numbness, tingling, and seizure, Psych: Negative for depression, anxiety, suicide ideation, homicidal ideation, and hallucinations, 10:07 Abdomen/GI: Positive for abdominal pain, nausea, vomiting, of the right upper quadrant, left upper quadrant, right lower quadrant and left lower quadrant, Exam: 10:06 Constitutional: This is a well developed, well nourished patient who is awake, alert, snw and in no acute distress. Head/Face: Normocephalic, atraumatic. Eyes: Pupils equal round and reactive to light, extra-ocular motions intact. Lids and lashes normal. Conjunctiva and sclera are non-icteric and not injected. Cornea within normal limits. Periorbital areas with no swelling, redness, or edema. ENT: Nares patent. No nasal discharge, no septal abnormalities noted. Tympanic membranes are normal and external auditory canals are clear. Oropharynx with no redness, swelling, or masses, exudates, or evidence of obstruction, uvula midline. Mucous membranes moist. Neck: Trachea midline, no thyromegaly or masses palpated, and no cervical lymphadenopathy. Supple, full range of motion without nuchal rigidity, or vertebral point tenderness. No Meningismus. Chest/axilla: Normal chest wall appearance and motion. Nontender with no deformity. No lesions are appreciated. Cardiovascular: Regular rate and rhythm with a normal S1 and S2. No gallops, murmurs, or rubs. Normal PMI, no JVD. No pulse deficits. Respiratory: Lungs have equal breath sounds bilaterally, clear to auscultation and percussion. No rales, rhonchi or wheezes noted. No increased work of breathing, no retractions or nasal flaring. Back: No spinal tenderness. No costovertebral tenderness. Full range of motion. Skin: Warm, dry with normal turgor. Normal color with no rashes, no lesions, and no evidence of cellulitis. MS/ Extremity: Pulses equal, no cyanosis. Neurovascular intact. Full, normal range of motion. Neuro: Awake and alert, GCS 15, oriented to person, place, time, and situation. Cranial nerves II-XII grossly intact. Motor strength 5/5 in all extremities. Sensory grossly intact. Cerebellar exam normal. Normal gait. Psych: Awake, alert, with orientation to person, place and time. Behavior, mood, and affect are within normal limits. 10:06 Abdomen/GI: Inspection: abdomen appears normal, Bowel sounds: normal, Palpation: mild abdominal tenderness, in the right upper quadrant, left upper quadrant, right lower quadrant and left lower quadrant, Vital Signs: 09:59 BP 158 / 98; Pulse 95; Resp 16 S; Temp 98.5(O); Pulse Ox 100% on R/A; Weight 97.52 kg kc6 (R); Height 5 ft. 0 in. (R); 11:10 BP 143 / 88; Pulse 82; Resp 17 S; Pulse Ox 100% on R/A; kc6 12:11 BP 160 / 90; Pulse 71; Resp 16 S; Pulse Ox 100% on R/A; kc6 09:59 Body Mass Index 41.99 (97.52 kg, 152.4 cm) kc6 MDM: 09:54 Patient medically screened. snw 10:10 Differential diagnosis: gastritis, gastroesophageal reflux disease, non-specific abd snw pain, urinary tract infection. Data reviewed: vital signs, nurses notes, lab test result(s). I considered the following discharge prescriptions or medication management in the emergency department Medications were administered in the Emergency Department. See MAR. Counseling: I had a detailed discussion with the patient and/or guardian regarding the historical points, exam findings, and any diagnostic results supporting the discharge/admit diagnosis, the presence of at least one elevated blood pressure reading (>120/80) during this emergency department visit, lab results. 03/25 10:04 Order name: Urine W/Microscopic (UAM); Complete Time: 11:55 snw 03/25 10:04 Order name: CBC with Diff; Complete Time: 12:03 snw 03/25 10:04 Order name: CMP; Complete Time: 10:56 snw 03/25 10:04 Order name: Lipase; Complete Time: 10:56 snw 03/25 10:41 Order name: CBC Smear Scan; Complete Time: 12:03 EDMS 03/25 10:04 Order name: IV Saline Lock; Complete Time: 10:34 snw 03/25 10:04 Order name: Labs collected and sent; Complete Time: 10:20 snw 03/25 11:00 Order name: Misc. Order: need urine; Complete Time: 11:31 snw Administered Medications: 10:34 Drug: NS 0.9% IV 1000 ml IV at 1 bolus Per protocol; 1000 mL bolus Route: IV; Rate: 1 kc6 bolus; Site: right antecubital; 11:36 Follow up: Response: No adverse reaction; IV Status: Completed infusion; IV Intake: kc6 1000ml 10:34 Drug: Famotidine IVP 20 mg IVP once; dilute with 10 mL 0.9% NaCl; give over 2 minutes kc6 Route: IVP; Site: right antecubital; 11:09 Follow up: Response: No adverse reaction; Pain is decreased kc6 10:34 Drug: TORadol - Ketorolac IVP 15 mg IVP once Route: IVP; Site: right antecubital; kc6 11:09 Follow up: Response: No adverse reaction; Pain is decreased kc6 Disposition: 16:13 I was immediately available on-site in the Emergency Department for consultation in the ms3 care of the patient. Disposition Summary: 03/25/23 12:08 Discharge Ordered Notes: Location: Home snw Condition: Stable snw Diagnosis - Abdominal pain, unspecified snw Followup: snw - With: Emergency Department - When: As needed - Reason: Worsening of condition Followup: snw - With: Private Physician - When: 2 - 3 days - Reason: Recheck today's complaints, Continuance of care, Re-evaluation by your physician Discharge Instructions: - Discharge Summary Sheet snw - Abdominal Pain, Adult snw - Gas and Gas Pains, Pediatric snw - [place] Diet snw Forms: - Work release form snw - Medication Reconciliation Form snw - Thank You Letter snw - Antibiotic Education snw - Prescription Opioid Use snw - Patient Portal Instructions snw - Leadership Thank You Letter snw Prescriptions: - promethazine 25 mg Oral Tablet - take 1 tablet by ORAL route every 6 hours As needed; 20 tablet; Refills: 0, snw Product Selection Permitted - dicyclomine 20 mg Oral Tablet - take 1 tablet by ORAL route 3 times per day; 21 tablet; Refills: 0, Product snw Selection Permitted Signatures: Dispatcher [employer] Lyubov Quevedo, BAR-C BONDING MACHINE OPERATOR-Remi Thrasher DO DO ms3 Nuria Peterson RN RN kc6
--- NOTE | 2023-03-25 12:08 | ER ---
Nurse's Notes [facility] Name: Paulette Farrell Age: 47 yrs Sex: Female : 1975 Arrival Date: 03/25/2023 Time: 09:49 Bed 13 Private MD: Diagnosis: Abdominal pain, unspecified Presentation: 03/25 09:59 Chief complaint: Patient states: she has been taking a multivitamin and realized it has kc6 150mg of Iodine in it which she is allergic to. reports lip and tongue numbness and abd burning. Coronavirus screen: At this time, the client does not indicate any symptoms associated with coronavirus-19. Ebola Screen: No symptoms or risks identified at this time. Initial Sepsis Screen: Does the patient meet any 2 criteria? No. Patient's initial sepsis screen is negative. Does the patient have a suspected source of infection? No. Patient's initial sepsis screen is negative. Risk Assessment: Do you want to hurt yourself or someone else? Patient reports no desire to harm self or others. Onset of symptoms was March 25, 2023. 09:59 Method Of Arrival: Ambulatory [facility] 09:59 Acuity: JL 3 kc6 Triage Assessment: 10:00 General: Appears in no apparent distress. comfortable, Behavior is calm, cooperative, kc6 appropriate for age. Pain: Complains of pain in right lower quadrant and left lower quadrant Pain does not radiate. Quality of pain is described as burning. EENT: No signs and/or symptoms were reported regarding the EENT system. Neuro: Level of Consciousness is awake, alert, obeys commands, Oriented to person, place, time, situation, Appropriate for age. Cardiovascular: Capillary refill < 3 seconds. Respiratory: Airway is patent Trachea midline Respiratory effort is even, unlabored, Respiratory pattern is regular, symmetrical. GI: Abdomen is round non-distended, Bowel sounds present X 4 quads. Abd is soft X 4 quads Abdomen is tender to palpation in right lower quadrant and left lower quadrant Reports lower abdominal pain. : No signs and/or symptoms were reported regarding the genitourinary system. Derm: No signs and/or symptoms reported regarding the dermatologic system. Skin is intact, is healthy with good turgor, Skin is pink, warm \T\ dry. Musculoskeletal: No signs and/or symptoms reported regarding the musculoskeletal system. Circulation, motion, and sensation intact. Capillary refill < 3 seconds, Range of motion: intact in all extremities. Historical: - Allergies: 10:00 Iodine; kc6 10:00 SHELLFISH; kc6 - PMHx: 10:00 Anemia; kc6 - PSHx: 10:00 breast reduction; tubal ligation; kc6 - Immunization history:: Client reports having NOT received the Covid vaccine. Flu vaccine is not up to date. - Social history:: Smoking status: Patient reports the use of cigarette tobacco products, denies chronic smoking, but will smoke occasionally. Screenin:02 [facility] ED Fall Risk Assessment (Adult) History of falling in the last 3 months, kc6 including since admission No falls in past 3 months (0 pts) Confusion or Disorientation No (0 pts) Intoxicated or Sedated No (0 pts) Impaired Gait No (0 pts) Mobility Assist Device Used No (0 pt) Altered Elimination No (0 pt) Score/Fall Risk Level 0 - 2 = Low Risk. Abuse screen: Denies threats or abuse. Denies injuries from another. Nutritional screening: No deficits noted. Tuberculosis screening: No symptoms or risk factors identified. Assessment: 10:02 Reassessment: please see triage assessment. kc6 11:10 Reassessment: Patient appears in no apparent distress at this time. No changes from 6 previously documented assessment. Patient and/or family updated on plan of care and expected duration. Pain level reassessed. Patient is alert, oriented x 3, equal unlabored respirations, skin warm/dry/pink. 12:10 Reassessment: Patient appears in no apparent distress at this time. No changes from 6 previously documented assessment. Patient and/or family updated on plan of care and expected duration. Pain level reassessed. Patient is alert, oriented x 3, equal unlabored respirations, skin warm/dry/pink. Vital Signs: 09:59 BP 158 / 98; Pulse 95; Resp 16 S; Temp 98.5(O); Pulse Ox 100% on R/A; Weight 97.52 kg kc6 (R); Height 5 ft. 0 in. (R); 11:10 BP 143 / 88; Pulse 82; Resp 17 S; Pulse Ox 100% on R/A; kc6 12:11 BP 160 / 90; Pulse 71; Resp 16 S; Pulse Ox 100% on R/A; kc6 09:59 Body Mass Index 41.99 (97.52 kg, 152.4 cm) kc6 ED Course: 09:52 Patient arrived in ED. mr 09:54 [facility] snw 09:54 Remi Fink DO is Attending Physician. snw 09:59 Nuria Peterson, RN is Primary Nurse. kc6 10:00 Triage completed. kc6 10:00 Arm band placed on. kc6 10:02 Patient has correct armband on for positive identification. Bed in low position. Call kc6 light in reach. Side rails up X 1. Client placed on continuous cardiac and pulse oximetry monitoring. NIBP monitoring applied. 10:20 Missed attempt(s): 20 gauge in right antecubital area. Missed attempt(s): 20 gauge in kc6 left antecubital area. 10:34 Inserted saline lock: 20 gauge in right antecubital area, using aseptic technique. kc6 12:35 No provider procedures requiring assistance completed. IV discontinued, intact, kc6 bleeding controlled, No redness/swelling at site. Pressure dressing applied. Administered Medications: 10:34 Drug: NS 0.9% IV 1000 ml IV at 1 bolus Per protocol; 1000 mL bolus Route: IV; Rate: 1 kc6 bolus; Site: right antecubital; 11:36 Follow up: Response: No adverse reaction; IV Status: Completed infusion; IV Intake: kc6 1000ml 10:34 Drug: Famotidine IVP 20 mg IVP once; dilute with 10 mL 0.9% NaCl; give over 2 minutes kc6 Route: IVP; Site: right antecubital; 11:09 Follow up: Response: No adverse reaction; Pain is decreased kc6 10:34 Drug: TORadol - Ketorolac IVP 15 mg IVP once Route: IVP; Site: right antecubital; kc6 11:09 Follow up: Response: No adverse reaction; Pain is decreased kc6 Medication: 12:35 VIS not applicable for this client. kc6 Intake: 11:36 IV: 1000ml; Total: 1000ml. kc6 Outcome: 12:08 Discharge ordered by . snw 12:35 Discharged to home ambulatory, kc6 12:35 Condition: improved 12:35 Discharge instructions given to patient, Instructed on discharge instructions, follow up and referral plans. medication usage, Demonstrated understanding of instructions, follow-up care, medications, Prescriptions given X 2, 12:35 Patient left the ED. kc6 Signatures: Lyubov Rowan FNP-C FNP-Lizbeth Ledezma mr Nuria Peterson, RN RN kc6
[2023-03-25 12:54] VITALS: TEMP 98.5; O2SAT 100
[2023-03-25 13:12] VITALS: BP 160/90
== END 2023-03-25 12:35 | disposition home or self-care (01) ==
LOC: ER 09:49
DX: R10.84 Generalized abdominal pain (principal); F17.210 Nicotine dependence, cigarettes, uncomplicated; Z91.013 Allergy to seafood; Z91.048 Other nonmedicinal substance allergy status
CPT/HCPCS: 96361; 85025; 81001; 36415; 83690; 80053; 96375; 96374; 99284; J7030